=== PATIENT | female | born 1975 ===

== ENCOUNTER → 2021-03-05 11:35 | Outpatient (BNVA) | payer OTHER, SELFPAY | PROVIDERS: PCP Internal Medicine; Visit Provider Nurse Practitioner Family ==

== ENCOUNTER 2021-07-25 08:49 | Outpatient (REF) | payer OTHER, SELFPAY ==
[2021-07-25 09:09] LABS: MANUAL DIFF FLAG NO
[2021-07-25 10:03] LABS: Basophils Absolute Auto 0.1 X10*3/uL (0.0-0.2); Basophils Percent Auto 1.1 % (0-2); Eosinophils Absolute Auto 0.2 X10*3/uL (0.0-0.4); Eosinophils Percent Auto 2.9 % (0-4); Hematocrit 40.6 % (37.0-47.0); Hemoglobin 13.8 g/dl (12.0-16.0); Imm Gran Abs Auto 0.01 X10*3/uL (0.00-0.03); Imm Gran Pct Auto 0.2 % (0.0-0.4); Lymphocytes Absolute Auto 1.6 X10*3/uL (1.2-4.9); Lymphocytes Percent Auto 26.1 % (20-40); Mean Corpuscular Hemoglobin 30.8 pg (27.0-33.0); Mean Corpuscular Volume 90.6 fL (80.0-98.0); Mean Platelet Volume 10.8 fL (9.4-12.3); Monocytes Absolute Auto 0.5 X10*3/uL (0.1-1.2); Monocytes Percent Auto 8.1 % (2-11); Neutrophils Absolute Auto 3.9 x10*3/uL (2.0-8.3); Neutrophils Percent Auto 61.6 % (45-73); Platelet Count 306 X10*3/uL (160-400); Red Blood Count 4.48 X10*6/uL (4.20-5.50); Red Cell Distribution Width 13.2 % (11.0-16.0); White Blood Count 6.3 X10*3/uL (4.8-10.8)
[2021-07-25 10:49] LABS: Erythrocyte Sedimentation Rate 23 MM/HR (0-20)
[2021-07-25 10:53] LABS: Alanine Aminotransferase 35 U/L (0-31); Albumin Level 4.4 g/dL (3.5-5.0); Alkaline Phosphatase 69 U/L (39-117); Anion Gap 16 (12-20); Aspartate Amino Transferase 30 U/L (5-31); Bilirubin Total 0.5 mg/dL (0.0-1.0); Blood Urea Nitrogen 7 mg/dL (9-16); C Reactive Protein 0.57 mg/dL (< or = 0.50); Calcium 10.2 mg/dL (8.4-10.2); Carbon Dioxide 22 mmol/L (22-29); Chloride 107 mmol/L (96-108); Cholesterol 178 mg/dL; Estimated Glomerular Filt Rate > 60; Glucose Fasting 108 mg/dL (60-99); HDL Cholesterol 55 mg/dL; LDL Cholesterol Calculated 87 mg/dl; Potassium 4.2 mmol/L (3.3-5.1); Sodium 141 mmol/L (135-145); Total Protein 7.8 g/dL (6.5-8.0); Triglycerides 182 mg/dL
[2021-07-25 11:01] LABS: Thyroid Stimulating Hormone 0.93 uIU/mL (0.32-4.0); Vitamin D 25-OH Total 30.4 ng/mL (>30)
[2021-07-28 20:51] LABS: Anti Nuclear Antibody Screen NEGATIVE (NEGATIVE)
[2021-07-30 11:12] LABS: Cyclic Citrullinated Peptide <16 UNITS
[2021-07-30 20:27] LABS: Anti DNA DS Antibody <1 IU/mL
== END 2021-07-25 08:50 | disposition home or self-care (01) ==
LOC: HO.LAB 08:49
PROVIDERS: PCP Internal Medicine; Visit Provider Internal Medicine
DX: Z00.00 Encounter for general adult medical examination without abnormal findings (principal); M06.9 Rheumatoid arthritis, unspecified; E66.01 Morbid (severe) obesity due to excess calories; E55.9 Vitamin D deficiency, unspecified
CPT/HCPCS: 36415; 80053; 80061; 82306; 84443; 85025; 85652; 86038; 86039; 86140; 86200; 86225

== ENCOUNTER → 2021-08-12 11:58 | Outpatient (BNVA) | payer OTHER, SELFPAY | PROVIDERS: PCP Internal Medicine; Referring Provider Internal Medicine; Visit Provider Physician Assistant | DX: E66.01 Morbid (severe) obesity due to excess calories (principal); Z68.41 Body mass index [BMI] 40.0-44.9, adult; R11.10 Vomiting, unspecified; K21.9 Gastro-esophageal reflux disease without esophagitis; J45.909 Unspecified asthma, uncomplicated; M06.9 Rheumatoid arthritis, unspecified; Z98.84 Bariatric surgery status; Z11.0 Encounter for screening for intestinal infectious diseases | CPT/HCPCS: 99202; 99211 ==

== ENCOUNTER 2021-08-12 13:58 | Outpatient (REF) | payer OTHER, SELFPAY ==
[2021-08-16 11:06] LABS: H Pylori Breath Test Negative (Negative)
== END 2021-08-12 13:59 | disposition home or self-care (01) ==
LOC: HO.LNP 13:58
PROVIDERS: Visit Provider Physician Assistant
DX: E66.01 Morbid (severe) obesity due to excess calories (principal); K21.9 Gastro-esophageal reflux disease without esophagitis; Z98.84 Bariatric surgery status
CPT/HCPCS: 83013

== ENCOUNTER → 2021-08-20 10:00 | Outpatient (BNVA) | payer OTHER, SELFPAY | PROVIDERS: PCP Internal Medicine; Visit Provider Counselor Mental Health | DX: E66.9 Obesity, unspecified (principal); F43.20 Adjustment disorder, unspecified | CPT/HCPCS: 90791 ==

== ENCOUNTER → 2021-09-09 13:27 | Outpatient (BNVA) | payer OTHER, SELFPAY | PROVIDERS: PCP Internal Medicine; Visit Provider Physician Assistant | DX: E66.01 Morbid (severe) obesity due to excess calories (principal); Z98.84 Bariatric surgery status; Z68.41 Body mass index [BMI] 40.0-44.9, adult | CPT/HCPCS: 99212 ==

== ENCOUNTER 2021-09-10 08:06 | Outpatient (REF) | payer OTHER, SELFPAY ==
--- NOTE | ~2021-09-10 | CT_ITS ---
EXAMINATION: CT ABDOMEN AND PELVIS WITHOUT CONTRAST CLINICAL INFORMATION: Abdominal pain. COMPARISON: Upper GI high density study. TECHNIQUE: Multidetector volumetric imaging was performed from the superior aspect of the liver through the pubic symphysis. Sagittal and coronal reformatted images were obtained on the technologist's workstation. This CT examination was performed using dose optimization techniques as appropriate, variously including the following: *Automated exposure control *Adjustment of mA and/or kV according to patient size (this includes techniques or standardized protocols for targeted exams where dose is matched to indication/reason for exam; i.e. extremities or head) *Use of iterative reconstruction technique DLP: 740 mGy-cm FINDINGS: LUNG BASES: The visualized lung bases are unremarkable. LIVER, GALLBLADDER, AND BILIARY TREE: The liver is normal in size, shape, and attenuation. No focal hepatic lesion or biliary ductal dilatation is present. The gallbladder has been surgically removed. PANCREAS: Unremarkable. SPLEEN: Unremarkable. ADRENAL GLANDS: Unremarkable. KIDNEYS AND URETERS: The kidneys are normal in size, shape, and attenuation. No hydronephrosis, hydroureter, or calculi seen. No perinephric stranding. BLADDER: The bladder is nondistended. GASTROINTESTINAL TRACT: The gastric lap band is in correct position in the proximal fundus of the stomach. Previously it was almost in the mid body of the stomach on GI study 07/14/2017. Visualized stomach - oral contrast, opacified small bowel loops and the colon appears unremarkable. No free air or free fluid seen. ABDOMINAL WALL: No significant hernia is appreciated. LYMPH NODES: Normal. VASCULAR: Unremarkable. PELVIC VISCERA: The uterus is anteverted and appears unremarkable. There is no free fluid in the pelvis. Abnormal lymph nodes seen. OSSEOUS STRUCTURES: Degenerative disc changes with vacuum disc phenomena at L3-L4 and L4-L5 disc levels. CT/CT abdomen pelvis wo con IMPRESSION: Mild constipation. Gastric lap band is in correct position in the fundus of the stomach. Cholecystectomy changes. Fleischner guidelines were followed.
[2021-09-10] MEDS: Barium Sulfate Oral (Berry) 450 ML ORAL.SUSP 900 ML PO (10:45)
== END 2021-09-10 08:07 | disposition home or self-care (01) ==
LOC: HO.CT 08:06
PROVIDERS: PCP Internal Medicine; Visit Provider Internal Medicine
DX: R10.9 Unspecified abdominal pain (principal)
CPT/HCPCS: 74176

== ENCOUNTER 2021-09-11 08:59 | Outpatient (REF) | payer OTHER, SELFPAY ==
--- NOTE | ~2021-09-11 | MM_ITS ---
EXAMINATION: MM SCREENING DIGITAL BREAST TOMOSYNTHESIS, BILATERAL CLINICAL INFORMATION: Screening. Asymptomatic. The lifetime risk of breast cancer based on the Tyrer-Cuzick Model is 10%. COMPARISON: Mammography: 05/12/2016, 12/21/2014 TECHNIQUE: Digital breast tomosynthesis is performed in both the craniocaudal and mediolateral oblique views along with computer-aided detection (CAD). Synthesized 2D images are generated from the tomosynthesis. Additional left cleavage view and left MLO view are provided. FINDINGS: The breasts are almost entirely fatty (ACR BI-RADS breast composition Category a). Background stromal and some minor scattered fibroglandular densities are stable. No developing density or architectural abnormality. There are scattered isolated round calcifications and benign grouped incomplete rim calcification anterior 9:30 o'clock left breast. The axilla and skin contours are unremarkable. MM/MM tomosynthesis screening BI IMPRESSION: No mammographic evidence of malignancy. ASSESSMENT: BI-RADS 1: Negative RECOMMENDATION: Routine annual mammography screening. This patient's information was entered into a reminder system with a target due date for their next mammogram.
== END 2021-09-11 09:00 | disposition home or self-care (01) ==
LOC: HO.MAMMO 08:59
PROVIDERS: PCP Internal Medicine; Visit Provider Internal Medicine
DX: Z12.31 Encounter for screening mammogram for malignant neoplasm of breast (principal)
CPT/HCPCS: 77063; 77067

== ENCOUNTER → 2021-09-17 15:00 | Outpatient (BNVA) | payer OTHER, SELFPAY | PROVIDERS: PCP Internal Medicine; Visit Provider Counselor Mental Health | DX: F43.20 Adjustment disorder, unspecified (principal); E66.9 Obesity, unspecified | CPT/HCPCS: 90832 ==

== ENCOUNTER → 2021-09-18 08:11 | Outpatient (BNVA) | payer OTHER, SELFPAY | PROVIDERS: PCP Internal Medicine; Visit Provider Dietitian, Registered | DX: E66.9 Obesity, unspecified (principal) | CPT/HCPCS: 97802 ==

== ENCOUNTER 2021-09-26 10:30 | Outpatient (REF) | payer OTHER, SELFPAY ==
[2021-09-26 16:28] LABS: CT PCR NOT DETECTED (Not Detect.); NG PCR NOT DETECTED (Not Detect.)
[2021-10-01 01:31] LABS: HPV mRNA E6/E7 rflx Not Detected (Not Detected)
== END 2021-09-26 10:31 | disposition home or self-care (01) ==
LOC: HO.LAB 10:30
PROVIDERS: PCP Internal Medicine; Visit Provider Advanced Practice Midwife
DX: Z01.411 Encounter for gynecological examination (general) (routine) with abnormal findings (principal); Z11.51 Encounter for screening for human papillomavirus (HPV); N95.1 Menopausal and female climacteric states; Z20.2 Contact with and (suspected) exposure to infections with a predominantly sexual mode of transmission
CPT/HCPCS: 87491; 87591; 87624; 88142

== ENCOUNTER 2021-10-01 08:15 | Outpatient (REF) | payer OTHER, SELFPAY ==
--- NOTE | ~2021-10-01 | XR_ITS ---
EXAMINATION: XR CHEST CLINICAL INFORMATION: Morbid/severe obesity due to excess calories COMPARISON: None TECHNIQUE: 2 views of the chest were obtained. FINDINGS: No significant abnormality is noted involving the heart, lungs, mediastinum, bony thorax or soft tissues. XR/XR chest 2V IMPRESSION: Unremarkable chest examination.
--- NOTE | ~2021-10-01 | US_ITS ---
EXAMINATION: US COMPLETE ABDOMEN WITH LIVER ELASTOGRAPHY CLINICAL INFORMATION: Obesity COMPARISON: Previous abdominal ultrasound August 2013 TECHNIQUE: Real-time imaging of the abdominal viscera. Noninvasive ultrasound liver fibrosis assessment is performed using Seamus ElastPQ point quantification shear wave elastography (2D-SWE) with a C5-2 MHz transducer. Multiple elastography samples are obtained. FINDINGS: PANCREAS: The visualized pancreatic head and body are normal in appearance. The remainder of the pancreas is obscured from visualization by the overlying bowel gas. ABDOMINAL AORTA: The proximal, middle, and distal aortic segments are normal in caliber. INFERIOR VENA CAVA: Visualized portions are normal. LIVER: The liver demonstrates normal size and contour. Liver echotexture is increased. No focal lesion or intrahepatic biliary duct dilatation. The right lobe measures 14 cm in length. The left lobe measures 8 cm in length. Portal flow is normal/hepatopedal Shear wave liver elastography median stiffness is 1.8 m/s (reference: normal median stiffness is 1.3 m/s or less). IQR/median stiffness to assess sampling precision is 0.1 (reference: good quality data set is IQR/median stiffness of 0.15 or less). GALLBLADDER: Surgically removed COMMON BILE DUCT: Normal in caliber measuring 0.2 cm in diameter. RIGHT KIDNEY: Normal. No hydronephrosis. No renal calculi or focal parenchymal lesions. The kidney measures 10.7 cm in maximum dimension. LEFT KIDNEY: Normal. No hydronephrosis. No renal calculi or focal parenchymal lesions. The kidney measures 10 cm in maximum dimension. SPLEEN: Normal. The spleen measures 11 cm in maximum dimension. FREE FLUID: None. US/US abdomen comp w elastography IMPRESSION: 1. Impression: Echogenic liver suggestive of fatty infiltration. Limited visualization of the tail of the pancreas 2. Liver elastography: Adequate liver sampling. Slightly elevated liver stiffness suggestive of compensated advanced chronic liver disease but need further test for confirmation. REFERENCE: Society of Radiologists in Ultrasound Liver Stiffness Thresholds (2020): LIVER STIFFNESS THRESHOLDS: *Liver Stiffness equal or less than 1.3 m/s: High probability of being normal. *Liver Stiffness less than 1.7 m/s: In the absence of other known clinical signs, rules out compensated advanced chronic liver disease. *Liver Stiffness 1.7-2.1 m/s: Suggestive of compensated advanced chronic liver disease but need further test for confirmation. *Liver Stiffness over 2.1 m/s: Rules in compensated advanced chronic liver disease. *Liver Stiffness over 2.4 m/s: Suggestive of clinically significant portal hypertension. QUALITY OF DATA SET: *IQR/Median value equal or less than 0.15 implies a quality data set. *IQR/Median value over 0.15 implies a poor quality data set. SIGNIFICANT CHANGE FROM PRIOR EXAM: Significant change if liver stiffness measurement is 10% or greater from prior exam. OTHER CONSIDERATIONS: The stage of liver fibrosis may be overestimated in the setting of acute hepatitis, liver inflammation, elevated liver function tests, hepatic vascular congestion, obstructive cholestasis, non-fasting state, and infiltrative diseases such as amyloidosis and lymphoma. In some patients with NAFLD, the liver stiffness thresholds for compensated advanced chronic liver disease may be lower. In causes other than viral hepatitis and NAFLD, liver stiffness thresholds are not well established.
--- NOTE | ~2021-10-01 | FL_ITS ---
EXAMINATION: XR GI SERIES CLINICAL INFORMATION: Obesity. History of gastric lap band. COMPARISON: Previous exam July 2017 TECHNIQUE: Upper GI was performed using thin and thick barium and effervescent granules. FINDINGS: There is abnormal esophageal motility. No hernia or reflux is seen. There is a gastric lap band. PHI angle measures 35 degrees without evidence of slippage. Stomach and duodenum are otherwise normal. No fold thickening, mass, ulcer or stricture is seen. There is no hernia or reflux. FLUOROSCOPY TIME: 1 minute 7.7 tomas per centimeter squared. 28 saved fluoroscopic images.: FL/FL upper GI series IMPRESSION: Gastric lap band. Abnormal esophageal motility. Otherwise unremarkable exam.
--- NOTE | 2021-10-01 08:44 | ECG_ITS ---
Test Reason : E66.01 Blood Pressure : / mmHG Vent. Rate : 067 BPM Atrial Rate : 067 BPM P-R Int : 140 ms QRS Dur : 072 ms QT Int : 430 ms P-R-T Axes : 041 021 021 degrees QTc Int : 454 ms Sinus rhythm with occasional Premature ventricular complexes Nonspecific T wave abnormality Abnormal ECG No previous ECGs available Referred By: Elisabeth Trimble Electronically Signed By:Dieter Cook
[2021-10-01 10:33] LABS: Estimated Average Glucose 85 mg/dL; Hemoglobin A1c % 4.6 %
[2021-10-01 11:00] LABS: Insulin 29 uU/mL (2-29); Vitamin D 25-OH Total 24.4 ng/mL (>30)
[2021-10-01 11:35] LABS: Folate > 20.0 ng/mL (> or = 4.0); Vitamin B12 1282 pg/mL (200-900)
[2021-10-02 13:11] LABS: Calcium (PTHI) 9.6 mg/dL (8.6-10.2); PTHI 80 pg/mL (16-77)
[2021-10-04 06:17] LABS: Zinc 81 mcg/dL (60-130)
== END 2021-10-01 08:16 | disposition home or self-care (01) ==
LOC: HO.US 08:15
PROVIDERS: PCP Internal Medicine; Visit Provider Physician Assistant
DX: E66.01 Morbid (severe) obesity due to excess calories (principal); K21.9 Gastro-esophageal reflux disease without esophagitis; Z98.84 Bariatric surgery status
CPT/HCPCS: 36415; 71046; 74240; 76705; 76981; 82306; 82607; 82746; 83036; 83525; 83970; 84425; 84590; 84630; 93005

== ENCOUNTER → 2021-10-31 10:24 | Outpatient (BNVA) | payer OTHER, SELFPAY | PROVIDERS: PCP Internal Medicine; Visit Provider Physician Assistant | DX: E66.9 Obesity, unspecified (principal); Z68.41 Body mass index [BMI] 40.0-44.9, adult; Z98.84 Bariatric surgery status | CPT/HCPCS: 99212 ==

== ENCOUNTER → 2021-11-05 13:00 | Outpatient (BNVA) | payer OTHER, SELFPAY | PROVIDERS: Visit Provider Counselor Mental Health | DX: F43.20 Adjustment disorder, unspecified (principal); E66.9 Obesity, unspecified | CPT/HCPCS: 90832 ==

== ENCOUNTER → 2021-11-28 14:45 | Outpatient (BNVA) | payer OTHER, SELFPAY | PROVIDERS: PCP Internal Medicine; Visit Provider Physician Assistant | DX: E66.01 Morbid (severe) obesity due to excess calories (principal); Z98.84 Bariatric surgery status | CPT/HCPCS: Q3014 ==

== ENCOUNTER 2021-12-12 10:08 | Outpatient (REF) | payer OTHER, SELFPAY ==
[2021-12-12 11:57] LABS: Vitamin D 25-OH Total 27.3 ng/mL (>30)
[2021-12-14 18:16] LABS: Calcium, Random Urine 7.2 mg/dL
[2021-12-16 17:32] LABS: Calcium (PTHI) 9.7 mg/dL (8.6-10.2); PTHI 67 pg/mL (16-77)
[2021-12-19 00:51] LABS: Vitamin A 45 mcg/dL (38-98)
[2021-12-19 13:52] LABS: Vitamin B1 11 nmol/L (8-30)
== END 2021-12-12 10:09 | disposition home or self-care (01) ==
LOC: HO.LAB 10:08
PROVIDERS: Physician Assistant; PCP Internal Medicine; Visit Provider Internal Medicine
DX: E66.01 Morbid (severe) obesity due to excess calories (principal); K21.9 Gastro-esophageal reflux disease without esophagitis; E55.9 Vitamin D deficiency, unspecified; Z98.84 Bariatric surgery status
CPT/HCPCS: 36415; 82306; 82310; 82330; 83970; 84425; 84590

== ENCOUNTER → 2021-12-18 13:11 | Outpatient (BNVA) | payer OTHER, SELFPAY | PROVIDERS: PCP Internal Medicine; Referring Provider Internal Medicine; Visit Provider Physician Assistant | DX: E66.01 Morbid (severe) obesity due to excess calories (principal); Z68.41 Body mass index [BMI] 40.0-44.9, adult; K21.9 Gastro-esophageal reflux disease without esophagitis; E21.3 Hyperparathyroidism, unspecified; M06.9 Rheumatoid arthritis, unspecified; Z98.84 Bariatric surgery status | CPT/HCPCS: 99212 ==

== ENCOUNTER → 2022-01-09 13:35 | Outpatient (BNVA) | payer OTHER, SELFPAY | PROVIDERS: PCP Internal Medicine; Visit Provider Physician Assistant | DX: E66.9 Obesity, unspecified (principal); K21.9 Gastro-esophageal reflux disease without esophagitis; Z98.84 Bariatric surgery status; Z68.41 Body mass index [BMI] 40.0-44.9, adult | CPT/HCPCS: 99212 ==

== ENCOUNTER → 2022-01-31 09:26 | Outpatient (BNVA) | payer OTHER, SELFPAY | PROVIDERS: PCP Internal Medicine; Referring Provider Internal Medicine; Visit Provider Physician Assistant | DX: E66.9 Obesity, unspecified (principal); Z98.84 Bariatric surgery status; Z68.41 Body mass index [BMI] 40.0-44.9, adult; Z71.3 Dietary counseling and surveillance | CPT/HCPCS: 99212 ==

== ENCOUNTER → 2022-02-24 10:29 | Outpatient (BNVA) | payer OTHER, SELFPAY | PROVIDERS: PCP Internal Medicine; Referring Provider Internal Medicine; Visit Provider Physician Assistant | DX: E66.01 Morbid (severe) obesity due to excess calories (principal); K21.9 Gastro-esophageal reflux disease without esophagitis; Z98.84 Bariatric surgery status | CPT/HCPCS: 99212 ==

== ENCOUNTER → 2022-03-18 10:33 | Outpatient (BNVA) | payer OTHER, SELFPAY | PROVIDERS: PCP Internal Medicine; Visit Provider Physician Assistant | DX: E66.01 Morbid (severe) obesity due to excess calories (principal); Z98.84 Bariatric surgery status; Z68.41 Body mass index [BMI] 40.0-44.9, adult | CPT/HCPCS: 99212 ==

== ENCOUNTER 2022-04-10 11:37 | Outpatient (REF) | payer OTHER, SELFPAY ==
[2022-04-10 13:06] LABS: TSH reflex Free T4 0.48 uIU/mL (0.32-4.0); Vitamin D 25-OH Total 28.8 ng/mL (>30)
[2022-04-10 13:18] LABS: Folate 15.5 ng/mL (> or = 4.0); Vitamin B12 937 pg/mL (200-900)
[2022-04-13 15:39] LABS: Calcium (PTHI) 10.1 mg/dL (8.6-10.2); PTHI 38 pg/mL (16-77)
== END 2022-04-10 11:38 | disposition home or self-care (01) ==
LOC: HO.LAB 11:37
PROVIDERS: PCP Internal Medicine; Visit Provider Physician Assistant
DX: E66.9 Obesity, unspecified (principal); E21.3 Hyperparathyroidism, unspecified; E55.9 Vitamin D deficiency, unspecified; Z98.84 Bariatric surgery status
CPT/HCPCS: 36415; 82306; 82607; 82746; 83970; 84443; 99212

== ENCOUNTER → 2022-05-01 11:16 | Outpatient (BNVA) | payer OTHER, SELFPAY | PROVIDERS: PCP Internal Medicine; Visit Provider Physician Assistant | DX: E66.01 Morbid (severe) obesity due to excess calories (principal); R03.0 Elevated blood-pressure reading, without diagnosis of hypertension; Z98.84 Bariatric surgery status; Z68.41 Body mass index [BMI] 40.0-44.9, adult | CPT/HCPCS: 99212 ==

== ENCOUNTER → 2022-05-09 09:00 | Outpatient (BNVA) | payer OTHER, SELFPAY | PROVIDERS: PCP Internal Medicine; Visit Provider Physician Assistant | DX: Z13.89 Encounter for screening for other disorder (principal) | CPT/HCPCS: Q3014 ==

== ENCOUNTER 2022-05-15 09:45 | Outpatient (REF) | payer OTHER, SELFPAY ==
--- NOTE | 2022-05-15 09:59 | ECG_ITS ---
Test Reason : cp Blood Pressure : / mmHG Vent. Rate : 073 BPM Atrial Rate : 073 BPM P-R Int : 138 ms QRS Dur : 072 ms QT Int : 490 ms P-R-T Axes : 040 014 018 degrees QTc Int : 539 ms Normal sinus rhythm Low voltage QRS Cannot rule out Anterior infarct , age undetermined Abnormal ECG When compared with ECG of 01-OCT-2021 08:44, Premature ventricular complexes are no longer Present QT has lengthened Referred By: Emerald Steve Electronically Signed By:TURNER PRIETO
[2022-05-15 10:07] LABS: MANUAL DIFF FLAG NO
[2022-05-15 10:30] LABS: Basophils Absolute Auto 0.1 X10*3/uL (0.0-0.2); Eosinophils Absolute Auto 0.2 X10*3/uL (0.0-0.4); Eosinophils Percent Auto 2.8 % (0-4); Hematocrit 40.4 % (37.0-47.0); Hemoglobin 14.3 g/dl (12.0-16.0); Imm Gran Abs Auto 0.02 X10*3/uL (0.00-0.03); Imm Gran Pct Auto 0.3 % (0.0-0.4); Lymphocytes Absolute Auto 1.8 X10*3/uL (1.2-4.9); Lymphocytes Percent Auto 26.4 % (20-40); Mean Corpuscular HGB Conc 35.4 g/dl (31.0-35.0); Mean Corpuscular Hemoglobin 31.8 pg (27.0-33.0); Mean Platelet Volume 10.7 fL (9.4-12.3); Monocytes Absolute Auto 0.5 X10*3/uL (0.1-1.2); Neutrophils Absolute Auto 4.2 x10*3/uL (2.0-8.3); Neutrophils Percent Auto 62.5 % (45-73); Platelet Count 282 X10*3/uL (160-400); Red Blood Count 4.49 X10*6/uL (4.20-5.50); Red Cell Distribution Width 13.2 % (11.0-16.0); White Blood Count 6.7 X10*3/uL (4.8-10.8)
[2022-05-15 11:03] LABS: Alanine Aminotransferase 19 U/L (0-31); Albumin Level 4.3 g/dL (3.5-5.0); Alkaline Phosphatase 54 U/L (39-117); Anion Gap 15 (12-20); Aspartate Amino Transferase 19 U/L (5-31); Bilirubin Total 0.3 mg/dL (0.0-1.0); Blood Urea Nitrogen 18 mg/dL (9-16); Calcium 9.4 mg/dL (8.4-10.2); Carbon Dioxide 20 mmol/L (22-29); Chloride 108 mmol/L (96-108); Cholesterol 161 mg/dL; Estimated Glomerular Filt Rate > 60; Glucose Fasting 117 mg/dL (60-99); HDL Cholesterol 55 mg/dL; LDL Cholesterol Calculated 86 mg/dl; Potassium 4.3 mmol/L (3.3-5.1); Sodium 139 mmol/L (135-145); Total Protein 7.5 g/dL (6.5-8.0); Triglycerides 104 mg/dL
== END 2022-05-15 09:46 | disposition home or self-care (01) ==
LOC: HO.LAB 09:45
PROVIDERS: PCP Internal Medicine; Visit Provider Internal Medicine
DX: R07.9 Chest pain, unspecified (principal); E66.01 Morbid (severe) obesity due to excess calories
CPT/HCPCS: 36415; 80053; 80061; 85025; 93005

== ENCOUNTER → 2022-05-30 09:00 | Outpatient (BNVA) | payer OTHER, SELFPAY | PROVIDERS: PCP Internal Medicine; Visit Provider Physician Assistant | DX: E66.01 Morbid (severe) obesity due to excess calories (principal); Z98.84 Bariatric surgery status; Z68.41 Body mass index [BMI] 40.0-44.9, adult | CPT/HCPCS: Q3014 ==

== ENCOUNTER → 2022-06-19 09:34 | Outpatient (REF) | payer OTHER, SELFPAY ==
--- NOTE | ~2022-06-19 | NM_ITS ---
Myocardial perfusion study Indication: Abnormal EKG to evaluate for myocardial ischemia Technique: The patient was brought in for a Lexiscan perfusion study on 06/19/2022. Patient performed low-level exercise and was injected 0.4 mg of Lexiscan intravenously. Within a minute of injection, 35 mCi of sestamibi was given intravenously. Images were obtained using the SPECT gamma camera interlaced with the gating device. Images were obtained in supine position. Resting perfusion study was performed on 06/24/2022. Patient was administered 35 mCi of sestamibi intravenously at rest. Images were then obtained in supine position. Images obtained with and without CT attenuation. Total DLP 156 mGy-cm Images were processed with the software and compared side to side in short axis, horizontal long axis and vertical long axis views. Findings: The stress perfusion study showed non attenuated images show mildly to moderately reduced uptake in the distal lateral as well as mildly reduced uptake in the apex of the LV myocardium. Attenuation corrected images show mildly reduced septum of the LV myocardium. The gated study shows normal LV systolic function with calculated LVEF of 63%. LV cavity is normal size. The gated study shows normal systolic wall thickening and contraction of segments. Resting study shows no significant change in perfusion pattern compared to stress perfusion study. Gating at rest reveals normal systolic wall motion with ejection fraction at 70%. The findings are consistent with likely normal myocardial perfusion. NM/NM cardiolite stress test Impression: 1. Myocardial perfusion imaging study shows likely normal myocardial perfusion 2. Gated LVEF is 63% 3. Transient ischemic dilatation not present EKG is nondiagnostic for ischemia
--- NOTE | 2022-06-19 09:39 | CA_ITS ---
Acquisition Time: 2022-06-19 09:52:08 Total Exercise Time: 00:02:00 Test Indications: PREOP Medications: SEE H Protocol: LEXISCAN Max HR: 131 BPM 75% of Pred: 173 BPM Max BP: 120/088 mmHG Max Work Load: 1.0 METS Pharmacological stress test with Lexiscan injection, while sitting and kicking her legs, without anginal symptoms, with isolated PVC, with normotensive response to injection, with nondiagnostic EKG for ischemia. In recovery she was treated with Aminophylline 75mg IVP to reverse Lexiscan. Nuclear images pending. Test reviewed with Dr Antonio Referred By: Elisabeth Trimble Overread By: KATHARINE RAMOS
== END ==
LOC: HO.CARD 09:34
PROVIDERS: PCP Internal Medicine; Visit Provider Physician Assistant
DX: Z01.818 Encounter for other preprocedural examination (principal); R94.31 Abnormal electrocardiogram [ECG] [EKG]; E21.3 Hyperparathyroidism, unspecified; R03.0 Elevated blood-pressure reading, without diagnosis of hypertension; M06.9 Rheumatoid arthritis, unspecified; E66.01 Morbid (severe) obesity due to excess calories; R06.02 Shortness of breath
CPT/HCPCS: 78452; 93017; A9500; J2785

== ENCOUNTER → 2022-06-20 10:00 | Outpatient (BNVA) | payer OTHER, SELFPAY | PROVIDERS: PCP Internal Medicine; Visit Provider Physician Assistant | DX: E66.01 Morbid (severe) obesity due to excess calories (principal); R94.31 Abnormal electrocardiogram [ECG] [EKG]; Z68.39 Body mass index [BMI] 39.0-39.9, adult; Z98.84 Bariatric surgery status | CPT/HCPCS: Q3014 ==

== ENCOUNTER → 2022-06-23 11:10 | Outpatient (REF) | payer OTHER, SELFPAY ==
--- NOTE | 2022-06-23 11:15 | CA_ITS ---
Transthoracic Echocardiogram Patient (Last, First, Middle): Lesley Campbell, Gender: Female Date of : 1975 Age: 46 Procedure Date: 06/23/2022 Procedure Type: Transthoracic Echocardiogram Location: OP Height: 152.4 cm Weight: 92.99 kg BSA: 1.89 m2 Heart Rate: bpm BP: 125 / 82 mmHg Pouch Maker: KAILASH Referring MD: Elisabeth Trimble PA-C Symptoms: R94.31 - Abnormal electrocardiogram [ECG] [EKG] Study Quality: Adequate ECG Rhythm: Sinus Conclusions: - The left ventricular systolic function is normal. The calculated ejection fraction is 63% by biplane method. - There is mildly increased left ventricular wall thickness. - No obvious valvular pathology seen on this study. Findings Left Ventricle Normal left ventricular cavity size. There is mildly increased left ventricular wall thickness. The left ventricular systolic function is normal. The calculated ejection fraction is 63% by biplane method. There is no evidence of regional wall motion abnormalities. Diastolic function is normal for age. LV peak GLS -17.4%. Right Ventricle Normal right ventricular cavity size and systolic function. Atria Both atria are normal in size. Aortic Valve There is a normal trileaflet aortic valve. There is no aortic valve stenosis. There is no aortic valve regurgitation. Mitral Valve The mitral valve appears normal. There is no mitral valve regurgitation. There is no mitral valve stenosis. Pulmonic Valve The pulmonic valve is likely normal. Tricuspid Valve There is no tricuspid valve regurgitation. Tricuspid regurgitation envelope is inadequate for calculation of right ventricular systolic pressure. Great Vessels The asc aorta is normal in size. Venous The inferior vena cava is normal in size and collapses greater than 50% with inspiration. Pericardium/Pleural There is no evidence of pericardial effusion. Prior Study Comparison No significant change compared to prior study dated: 01/22/2018. Recommendations, Care & Conclusions No obvious valvular pathology seen on this study. Measurements 2D Linear Measurements IVSd: 1.12 0.6-0.9/0.6-1.0 cm LVIDd: 3.96 3.9-5.3/4.2-5.9 cm LVIDd Index: 2.10 2.4-3.2/2.2-3.1 cm/m2 LVIDs: 2.12 2.0-3.6 cm LVPWd: 1.11 0.7-1.1 cm LA Diam: 3.30 2.7-3.8/3.0-4.0 cm LAIDs Index: 1.75 1.5-2.3 cm/m2 LV Mass: 182.08 67-162/88-224 g LV Mass Index: 96.34 43-95/49-115 g/m2 LVOT Diam: 2.20 3.0+(-)1.3 cm 2D Systolic Function EF 4C: 62.20 >55% EF 2C: 65.30 >55% EF BiP: 62.90 >55% Mitral Valve MV Pk E: 0.56 MV PK A: 0.72 MV Decel Time: 280.00 E/A: 0.80 E'Lateral: 7.29 E'Medial: 5.77 E/E' Med: 9.70 E/E' Lat: 7.60 PHT: 82.00 MVA PHT: 2.68 Decel [place]: 1.99 Aortic Valve AoV Pk Peter: 1.16 AoV Mn Peter: 0.83 AoV VTI: 0.25 AoV Pk Grad: 5.00 Aov Mn Grad: 3.00 JOAQUIN Cont.VTI: 2.82 LVOT LVOT Pk Peter: 0.91 LVOT Mn Peter: 0.61 LVOT VTI: 0.18 LVOT Pk Grad: 3.00 LVOT Mn Grad: 2.00 LVOT Diam: 2.20 LVOT Area: 3.80 Diastolic Function MV Pk E: 0.56 MV Pk A: 0.72 E/A: 0.80 E'Medial: 5.77 E/E' Med: 9.70 E' Laterial: 7.29 E/E' Lat: 7.60 Right Ventricle TAPSE (mm): 17.40 TVS' Peter: 16.00 Tricuspid Valve RA Press: 3.00 Great Vessels Aorta Sinus of Valsalva: 3.61 2.0-3.[address] Ridge: 2.87 1.7-3.4 cm Ao Asc: 3.10 2.1-3.4 cm Updated in Other Vendor System with Status of Final Mina Yi MD electronically signed on 06/23/2022 4:24:39 PM with status of Final
== END ==
LOC: HO.CARD 11:10
PROVIDERS: PCP Internal Medicine; Visit Provider Physician Assistant
DX: Z01.818 Encounter for other preprocedural examination (principal); R06.02 Shortness of breath; R94.31 Abnormal electrocardiogram [ECG] [EKG]
CPT/HCPCS: 93306; 93356

== ENCOUNTER → 2022-07-11 10:00 | Outpatient (BNVA) | payer OTHER, SELFPAY | PROVIDERS: PCP Internal Medicine; Visit Provider Physician Assistant | DX: E66.01 Morbid (severe) obesity due to excess calories (principal); M06.9 Rheumatoid arthritis, unspecified; R94.31 Abnormal electrocardiogram [ECG] [EKG]; Z98.84 Bariatric surgery status; Z68.39 Body mass index [BMI] 39.0-39.9, adult | CPT/HCPCS: Q3014 ==

== ENCOUNTER → 2022-08-14 13:04 | Outpatient (BNVA) | payer OTHER, SELFPAY | PROVIDERS: PCP Internal Medicine; Referring Provider Internal Medicine; Visit Provider Internal Medicine | DX: Z01.810 Encounter for preprocedural cardiovascular examination (principal); I49.3 Ventricular premature depolarization | CPT/HCPCS: 99202 ==

== ENCOUNTER → 2022-09-11 11:24 | Outpatient (BNVA) | payer OTHER, SELFPAY | PROVIDERS: PCP Internal Medicine; Visit Provider Nurse Practitioner Family | DX: Z12.11 Encounter for screening for malignant neoplasm of colon (principal); K21.9 Gastro-esophageal reflux disease without esophagitis; R10.84 Generalized abdominal pain; K58.2 Mixed irritable bowel syndrome; K59.01 Slow transit constipation | CPT/HCPCS: 99202 ==

== ENCOUNTER 2022-09-11 14:50 | Outpatient (REF) | payer OTHER, SELFPAY ==
[2022-09-14 11:27] LABS: H Pylori Breath Test Negative (Negative)
== END 2022-09-11 14:51 | disposition home or self-care (01) ==
LOC: HO.LNP 14:50
PROVIDERS: Visit Provider Nurse Practitioner Family
DX: R10.9 Unspecified abdominal pain (principal)
CPT/HCPCS: 83013

== ENCOUNTER 2022-09-18 10:06 | Outpatient (REF) | payer OTHER, SELFPAY ==
--- NOTE | ~2022-09-18 | MM_ITS ---
EXAMINATION: MM SCREENING DIGITAL BREAST TOMOSYNTHESIS, BILATERAL CLINICAL INFORMATION: Screening. Asymptomatic. The lifetime risk of breast cancer based on the Tyrer-Cuzick Model is 10%. COMPARISON: Mammography: 09/11/2021, 05/12/2016 TECHNIQUE: Digital breast tomosynthesis is performed in both the craniocaudal and mediolateral oblique views along with computer-aided detection (CAD). Synthesized 2D images are generated from the tomosynthesis. Additional exaggerated left CC view is provided. FINDINGS: The breasts are almost entirely fatty (ACR BI-RADS breast composition Category a). Background stromal and fibroglandular tissue is similar to prior studies. No significant mass or developing density or architectural abnormality. No abnormal calcifications. The axilla and skin contours are unremarkable. MM/MM tomosynthesis screening BI IMPRESSION: No mammographic evidence of malignancy. ASSESSMENT: BI-RADS 1: Negative RECOMMENDATION: Routine annual mammography screening. This patient's information was entered into a reminder system with a target due date for their next mammogram.
== END 2022-09-18 10:07 | disposition home or self-care (01) ==
LOC: HO.MAMMO 10:06
PROVIDERS: PCP Internal Medicine; Visit Provider Internal Medicine
DX: Z12.31 Encounter for screening mammogram for malignant neoplasm of breast (principal)
CPT/HCPCS: 77063; 77067

== ENCOUNTER → 2022-10-24 13:39 | Outpatient (BNVA) | payer OTHER, SELFPAY | PROVIDERS: Visit Provider Nurse Practitioner Family | DX: Z12.11 Encounter for screening for malignant neoplasm of colon (principal); K59.00 Constipation, unspecified; R10.84 Generalized abdominal pain; K21.9 Gastro-esophageal reflux disease without esophagitis; Z90.49 Acquired absence of other specified parts of digestive tract; Z98.84 Bariatric surgery status | CPT/HCPCS: 99212 ==

== ENCOUNTER 2022-11-03 14:25 | Outpatient (REF) | payer OTHER, SELFPAY ==
[2022-11-04 04:49] LABS: CT PCR NOT DETECTED (Not Detect.); NG PCR NOT DETECTED (Not Detect.)
[2022-11-04 08:30] LABS: BV Int Neg Control Negative (Negative); BV Int Pos Control Positive (Positive)
== END 2022-11-03 14:26 | disposition home or self-care (01) ==
LOC: HO.LNP 14:25
PROVIDERS: PCP Internal Medicine; Visit Provider Advanced Practice Midwife
DX: Z01.419 Encounter for gynecological examination (general) (routine) without abnormal findings (principal); R03.0 Elevated blood-pressure reading, without diagnosis of hypertension; N95.1 Menopausal and female climacteric states; E66.01 Morbid (severe) obesity due to excess calories; M54.9 Dorsalgia, unspecified; Z79.899 Other long term (current) drug therapy; Z20.2 Contact with and (suspected) exposure to infections with a predominantly sexual mode of transmission
CPT/HCPCS: 0353U; 87480; 87510; 87660

== ENCOUNTER 2022-12-16 17:08 | Outpatient (AMB) | payer OTHER, SELFPAY ==
[2022-12-16 17:10] VITALS: BP 134/92; PULSE 103; O2SAT 97; BMI 39.5
--- NOTE | 2022-12-16 17:10 | A.OFFPC_ITS ---
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: No Accompanied by: Self / Same As Patient Allergies No Known Allergies Allergy (Verified 12/16/22 17:19) Medication List - Last Reconciled 12/16/22 by Emerald Steve MD albuterol sulfate 90 mcg/actuation (Ventolin HFA) 2 puffs inhalation Q6H PRN 30 days cholecalciferol (vitamin D3) 50 mcg PO DAILY Flovent HFA 110 mcg/actuation (fluticasone propionate) 2 puffs inhalation BID 30 days NS hydroxychloroquine 200 mg PO BID leflunomide 10 mg PO DAILY montelukast 10 mg PO DAILY omeprazole 40 mg PO DAILY polyethylene glycol 3350 (Miralax) 17 grams PO DAILY sennosides (Natural Senna Laxative) 17.2 mg (2 x 8.6 mg) PO BEDTIME Tobacco use date assessed: 12/16/22 Dental Screening Dental Screen Date: 12/16/22 Did you have a dental visit in the last 12 months?: No Did you have a dental problem in the last 6 months where you did not have access to dental care?: No Was dental information given to patient?: Patient has dentist HPI HPI Comments History of Present Illness Details This is 45-year-old female with impaired glucose tolerance, GERD, rheumatoid arthritis and moderate persistent asthma S that comes today for follow-up on her conditions. She has polydipsia but no polyuria. GERD stable with PPIs. Rheumatoid arthritis stable with hydroxychloroquine and this is follow rheumatology. On longstanding inhaler for her asthma and she requires rescue inhaler as needed. No chest pain or shortness of breath. [facility] Medical History (Updated 12/16/22 @ 17:23 by Emerald Steve MD) Abdominal pain Allergic rhinitis Asthma GERD (gastroesophageal reflux disease) Morbid obesity due to excess calories Obesity (BMI 30-39.9) Osteoarthritis of right ankle Physical exam Rheumatoid arthritis Surgical History H/O section History of total left hip arthroplasty Hx laparoscopic cholecystectomy (~09/2018) Hx of laparoscopic gastric banding Hx of tubal ligation Family History Father Diabetes mellitus Hypertension Maternal Aunt Breast cancer Mother CAD (coronary artery disease) Sister No problems noted. Brother No problems noted. Brother No problems noted. Brother No problems noted. Son No problems noted. Daughter Hypertension Asthma Daughter Obesity ADHD Social History Housing: House Alcohol intake: current Alcohol intake frequency: holidays/special occasions only Alcohol type: beer, wine and hard liquor Patient Tobacco Use Status: Never used Tobacco e-Cigarette/Vaping Use: Never Used Second Hand Smoke Exposure: Yes service: No Current occupational status: disabled Cognitive needs: No Hearing needs: No Vision needs: No Female Reproductive History Menstrual Age of Menarche: 11 Questionnaire PHQ-9 Over the last 2 weeks, how often have you been bothered by any of the following problems? 1. Little interest or pleasure in doing things: not at all 2. Feeling down, depressed, or hopeless: not at all 3. Trouble falling or staying asleep, or sleeping too much: not at all 4. Feeling tired or having little energy: not at all 5. Poor appetite or overeating: not at all 6. Feeling bad about yourself - or that you are a failure or have let yourself or your family down: not at all 7. Trouble concentrating on things, such as reading the newspaper or watching television: not at all 8. Moving or speaking so slowly that other people could have noticed. Or the opposite - being so fidgety or restless that you have been moving around a lot more than usual: not at all 9. Thoughts that you would be better off or of hurting yourself in some way: not at all Total score: 0 Depression Screening Interpretation: Negative 21390 - PHQ-9 Billing: Yes Source: Developed by Drs. Benito Rhodes, Angelita Vanegas, Tree Gandhi and colleagues, with an educational alexi from [employer]. Thrive Questionnaire Date Thrive assessed: 12/16/22 I am a: Patient What is your living situation today?: I have a steady place to live Within the past 12 months, did the food you bought not last and you didn't have the money to get more?: Never true Within the past 12 months, did you worry whether your food would run out before you got money to buy more?: Never true Do you have trouble paying for medicines?: No Do you have trouble getting transportation to medical appointments?: No Do you have trouble paying your heating and electricity bill?: No Do you have trouble taking care of your child, family member or friend?: No Do you have trouble with day-to-day activities such as bathing, preparing meals, shopping, managing finances, etc.?: No Are you currently unemployed and looking for a job?: No Are you interested in more education?: No Please select the resources that you would like help with: None Currently or been in a relationship where the following occur: no concerns reported AUDIT C Alcohol Use Questionnaire (AUDIT-C) 1. How often do you have a drink containing alcohol?: Monthly or less 2. How many drinks containing alcohol do you have on a typical day when you are drinking?: 1 or 2 3. How often do you have six or more drinks on one occasion?: Never Total Score: 1 Score Reviewed/Action Taken: No VIET-7 AMB Questionnaire VIET-7 Date VIET - 7 assessed: 12/16/22 Feeling nervous, anxious, or on edge: 0 = Not at all Not being able to stop or control worryin = Not at all Worrying too much about different things: 0 = Not at all Trouble relaxin = Not at all Being so restless that it is hard to sit still: 0 = Not at all Becoming easily annoyed or irritable: 0 = Not at all Feeling afraid as if something awful might happen: 0 = Not at all Total VIET-7 score (0-4 normal; 5-9 mild; 10-14 moderate; 15-21 severe): 0 Source: Developed by Drs. Benito Rhodes, Angelita Vanegas, Tree Gandhi and colleagues, with an educational alexi from [employer]. VIET-7 Assessment Billing VIET-7 Assessment Tool: VIET-7 Assessment 41898 Review of Systems Const All systems reviewed & are unremarkable except as noted in HPI and below Eyes Reports no additional complaints, Denies change in vision and Denies other visual disturbances Card Denies chest pain at rest, Denies chest pain with activity, Denies edema, Denies irregular heart rhythm, Denies claudication, Denies dyspnea, Denies dyspnea on exertion, Denies orthopnea, Denies paroxysmal nocturnal dyspnea and Denies slow heart rate Resp Denies cough, Denies dyspnea and Denies dyspnea on exertion GI Denies abdominal pain, Denies change in bowel habits, Denies excessive flatus, Denies nausea and Denies vomiting Denies urinary incontinence, Denies urinary hesitancy and Denies urinary urgency Musc Denies abnormal gait, Denies atrophy, Denies deformity, Reports arthralgias and Denies limited range of motion Skin/Breast Denies bleeding lesions, Denies changing lesions and Denies rash Neuro Denies abnormal gait and Denies lack of coordination Physical exam (Primary Care) Vital Signs: Last Vital Signs Pulse 103 H 12/16/22 17:10 BP 134/92 H 12/16/22 17:10 Pulse Ox 97 12/16/22 17:10 Oxygen Delivery Method Room Air 12/16/22 17:10 BMI result Body Mass Index 39.5 Tobacco/Smoking Status: Tobacco use Status Tobacco use date assessed 12/16/22 12/16/22 17:11 Patient Tobacco Use Status Never used Tobacco 12/16/22 17:11 e-Cigarette/Vaping Use Never Used 12/16/22 17:11 PHQ-9: PHQ-9 Score PHQ-9: Total score 0 12/16/22 17:22 Depression Screening Interpretation: Negative Thrive Assessment: Date of Thrive Assessment Date Thrive assessed 12/16/22 12/16/22 17:11 Currently or been in a relationship where the following occur: no concerns reported Eyes General: appearance normal, both eyes and all related structures Eyelids: Yes eyelids normal Conjunctivae: conjunctivae normal Neck Neck: Yes normal visual inspection and Yes supple Resp Effort & Inspection: normal respiratory effort Auscultation: clear to auscultation bilaterally Cardio Jugular venous distension: no JVD Rate: regular rate Rhythm: regular rhythm Heart sounds: S1 normal heart sound present and S2 normal heart sound present Extrem General: Yes full ROM Assessment and Plan Assessment & Plan (1) Moderate persistent asthma: Code(s): J45.40 - Moderate persistent asthma, uncomplicated Plan: Continue longstanding inhaler. Use rescue inhaler as needed (2) Impaired glucose tolerance: Code(s): R73.02 - Impaired glucose tolerance (oral) Plan: Repeat fasting blood glucose. (3) Rheumatoid arthritis: Code(s): M06.9 - Rheumatoid arthritis, unspecified Plan: Continue hydroxychloroquine. (4) GERD (gastroesophageal reflux disease): Code(s): K21.9 - Gastro-esophageal reflux disease without esophagitis Qualifiers: Esophagitis presence: esophagitis presence not specified Qualified Code(s): K21.9 - Gastro-esophageal reflux disease without esophagitis Plan: Continue PPIs as needed Orders: Orders Comprehensive [place]. Panel Fast Today R73.02 - Impaired glucose tolerance (oral) Vitamin D 25-OH Total Today E55.9 - Vitamin D deficiency, unspecified Complete Blood Count Auto Diff Today D64.9 - Anemia, unspecified Coding Level of Care Code Est Pt Level 4 (04598) Diagnoses Moderate persistent asthma J45.40 Impaired glucose tolerance R73.02 Rheumatoid arthritis M06.9 GERD (gastroesophageal reflux disease) K21.9 Esophagitis presence: esophagitis presence not specified Additional Codes VIET-7 Assessment Billing - VIET-7 Assessment Tool: VIET-7 Assessment 26305 ([id number]) Time Spent (min) 23
== END 2022-12-16 17:26 | disposition home or self-care (01) ==
PROVIDERS: Visit Provider Internal Medicine
DX: J45.40 Moderate persistent asthma, uncomplicated (principal); R73.02 Impaired glucose tolerance (oral); M06.9 Rheumatoid arthritis, unspecified; K21.9 Gastro-esophageal reflux disease without esophagitis
CPT/HCPCS: 99214

== ENCOUNTER 2023-05-15 09:25 | Day surgery (SDC) | payer OTHER, SELFPAY ==
--- NOTE | 2023-05-14 13:18 | HO.ANESPROP2 ---
Documented by User: Carolin Claros NP 05/14/23 13:19 HPI - Anesthesia Eval Consult details Narrative: 47yo F for Upper Endoscopy and Colonoscopy [facility] Active Problems Active Problems: All Active Problems (Updated 12/16/22 @ 17:23 by Emerald Steve MD) Impaired glucose tolerance (Acute) Cervical cancer screening (Acute) Back pain (Acute) PVC (premature ventricular contraction) (Acute) Preoperative cardiovascular examination (Acute) Screen for colon cancer (Acute) Abnormal EKG (Acute) Elevated blood pressure reading (Acute) Moderate persistent asthma (Acute) Hyperparathyroidism (Acute) Hypovitaminosis D (Acute) Perimenopausal (Acute) Encounter for annual routine gynecological examination (Acute) Adjustment disorder, unspecified (Acute) Emesis (Acute) Hx of laparoscopic gastric banding (Acute) Abdominal pain (Acute) Morbid obesity due to excess calories (Acute) Physical exam (Acute) Obesity (BMI 30-39.9) (Acute) Osteoarthritis of right ankle (Acute) Allergic rhinitis (Acute) GERD (gastroesophageal reflux disease) (Acute) Asthma (Acute) Asthma exacerbation (Acute) Rheumatoid arthritis (Acute) Past Medical History Medical History Abdominal pain Allergic rhinitis Asthma GERD (gastroesophageal reflux disease) Morbid obesity due to excess calories Obesity (BMI 30-39.9) Osteoarthritis of right ankle Physical exam Rheumatoid arthritis Family History Family History Father Diabetes mellitus Hypertension Maternal Aunt Breast cancer Mother CAD (coronary artery disease) Sister No problems noted. Brother No problems noted. Brother No problems noted. Brother No problems noted. Son No problems noted. Daughter Hypertension Asthma Daughter Obesity ADHD Surgical History Surgical History H/O section History of total left hip arthroplasty Hx laparoscopic cholecystectomy (~09/2018) Hx of laparoscopic gastric banding Hx of tubal ligation Social History Social History Housing: House Alcohol intake: current Alcohol intake frequency: holidays/special occasions only Alcohol type: beer, wine and hard liquor Patient Tobacco Use Status: Never used Tobacco e-Cigarette/Vaping Use: Never Used Second Hand Smoke Exposure: Yes Use of substances other than those prescribed or required for medical reasons: No Are you DNR?: No Advance Directives: No Advance Directives Information Provided: Yes service: No Current occupational status: disabled Cognitive needs: No Hearing needs: No Vision needs: No Meds Allergies Allergy/AdvReac Type Severity Reaction Status Date / Time No Known Allergies Allergy Verified 05/15/23 10:45 Home Medications Medication Instructions Recorded Confirmed Last Taken Type hydroxychloroquine 200 mg tablet 200 mg PO BID 10/31/21 12/16/22 Unknown History leflunomide 10 mg tablet 10 mg PO DAILY 10/31/21 12/16/22 Unknown History Assessment and Plan Assessment Anesthesia Assessment: Chart Reviewed Documented by User: Rylee Mullen MD 05/15/23 10:51 [facility] Past Medical History Medical History Abdominal pain Allergic rhinitis Asthma GERD (gastroesophageal reflux disease) Morbid obesity due to excess calories Obesity (BMI 30-39.9) Osteoarthritis of right ankle Physical exam Rheumatoid arthritis Family History Family History Father Diabetes mellitus Hypertension Maternal Aunt Breast cancer Mother CAD (coronary artery disease) Sister No problems noted. Brother No problems noted. Brother No problems noted. Brother No problems noted. Son No problems noted. Daughter Hypertension Asthma Daughter Obesity ADHD Family history of problems with anesthesia: No Surgical History Surgical History H/O section History of total left hip arthroplasty Hx laparoscopic cholecystectomy (~09/2018) Hx of laparoscopic gastric banding Hx of tubal ligation History of Problems with Anesthesia: No Social History Social History Housing: House Alcohol intake: current Alcohol intake frequency: holidays/special occasions only Alcohol type: beer, wine and hard liquor Patient Tobacco Use Status: Never used Tobacco e-Cigarette/Vaping Use: Never Used Second Hand Smoke Exposure: Yes Use of substances other than those prescribed or required for medical reasons: No Are you DNR?: No Advance Directives: No Advance Directives Information Provided: Yes service: No Current occupational status: disabled Cognitive needs: No Hearing needs: No Vision needs: No Meds Allergies Allergy/AdvReac Type Severity Reaction Status Date / Time No Known Allergies Allergy Verified 05/15/23 10:45 Home Medications Medication Instructions Recorded Confirmed Last Taken Type hydroxychloroquine 200 mg tablet 200 mg PO BID 10/31/21 12/16/22 Unknown History leflunomide 10 mg tablet 10 mg PO DAILY 10/31/21 12/16/22 Unknown History Exam Airway Mallampati Class: II TM Dist: >3cm Neck ROM: Full Heart: rrr Lungs: cta Assessment and Plan Assessment Anesthesia Assessment: Anesthesia Plan Discussed Final Anesthetic Review Family History of Problems with Anesthesia: No History of Problems with Anesthesia: No NPO: Yes ASA Class: III Final Preanesthetic Review: No Changes in Pt Med Stat, Meds/Allgs Chart Reviewed and Consent Obtained/Reviewed Patient Risk: Intermediate Procedure Risk: Intermediate Anesthetic Plan Anesthetic Plan: MAC: Disposition: Standard PACU
--- NOTE | 2023-05-15 10:13 | MHC.SHP ---
Pre-Procedural Eval Section A Date of Service: 05/15/23 The patient is an INPATIENT: No The History & Physical has been completed within 30 days and I have reviewed it.: No Section B Chief Complaint: screening, GERD, epigastric pain Relevant Family History (Specify if Yes): No Relevant Social History: None Present Medications: see Short Stay Collaborative assessment Medical History: Significant History (Abdominal pain Allergic rhinitis Asthma GERD (gastroesophageal reflux disease) Morbid obesity due to excess calories Obesity (BMI 30-39.9) Osteoarthritis of right ankle Physical exam Rheumatoid arthritis) History of Previous Operations: Relevant previous surgery/procedure and date(s) (H/O section History of total left hip arthroplasty Hx laparoscopic cholecystectomy (~09/2018) Hx of laparoscopic gastric banding Hx of tubal ligation) Allergies: Allergies Allergy/AdvReac Type Severity Reaction Status Date / Time No Known Allergies Allergy Verified 12/16/22 17:19 Review of Systems Sugical H&P ROS: Negative: Constitution, Cardiovascular, Respiratory and Gastrointestinal Exam Surgical H&P Exam: Normal: Heart, Normal: Lungs, Normal: Extremities and Normal: Abdomen Plan Diagnosis/Plan: Unchanged I have reviewed the history and physical and performed a pertinent physical examination on my patient. No changes have occurred unless specified. Time Spent With Patient Time: Total time managing care of this patient today ____ minutes.
[2023-05-15 10:32] VITALS: BMI 37.9
[2023-05-15 10:41] VITALS: BP 132/91; PULSE 87; RESP 16; TEMP 36.2; O2SAT 95
--- NOTE | 2023-05-15 10:53 | W.PM.OPN ---
Operative Note Operative Note Date of Service: 05/15/23 Narrative: FLEXIBLE TRANSORAL UPPER GASTROINTESTINAL ENDOSCOPY WITH BIOPSIES AND COLONOSCOPY TILL CECUM WITH SNARE POLYPECTOMY Pre-op diagnosis: Colon cancer screening (1st colonoscopy), GERD, postprandial epigastric pain and bloating, constipation Post-op diagnosis: Esophagitis, gastritis, gastric antral nodules, Colon polyp, diverticulosis, hemorrhoids Endoscopist:? Manolo Mosquera MD Anesthesia:?MAC UPPER ENDOSCOPY Consent: Indications for the procedure and potential complications of bleeding, perforation, reaction to medications and missed diagnosis were discussed with the patient and informed consent was obtained. Instrument: Olympus GIF H 190 mid size upper endoscope Monitoring: Vital signs and clinical assessment, continuous EKG monitoring, Pulse oximetry, Carbon Dioxide monitoring and blood pressure monitoring were done throughout the procedure. Procedure: The patient was placed in the left lateral decubitis position and pre-procedure medications were administered and a bite block was placed. The endoscope was inserted into the mouth and advanced under direct vision to the third part of duodenum. A careful inspection was made as the upper endoscope was withdrawn including a retroflexed examination of the proximal stomach; Findings and interventions are described below. Findings: Larynx: Normal Esophagus: GE junction at 34 cms, extrinsic constriction at 36 cms (likely due to Lap band). Focal esophagitis at GE junction and no Chris's. Stomach: A few 5 -6 mm benign appearing nodules in the antrum with central erosions - biopsied. Mild gastric erythema. Biopsies were obtained. Grade 2 flap valve on retroflexed examination of the cardia. Duodenum: Normal bulb and descending duodenum. Biopsies were obtained from 3rd part of duodenum to check for celiac sprue Intervention: Biopsies as noted above COLONOSCOPY PROCEDURE NOTE Consent: Indications for the procedure and potential complications of bleeding, perforation, reaction to medications and missed diagnosis were discussed with the patient and informed consent was obtained. Instrument: Olympus PCF H 190 L variable stiffness pediatric colonoscope Monitoring: Vital signs and clinical assessment, intermittent blood pressure monitoring, continuous EKG monitoring, Pulse oximetry and Carbon Dioxide monitoring were done throughout the procedure. Colon withdrawl time was 17 minutes. Procedure: The patient was placed in the left lateral decubitis position and pre-procedure medications were administered. After a digital rectal examination of the ano-rectum, the video colonoscope was inserted into the rectum and advanced through the colon to the cecum. The colonoscope was slowly withdrawn in a retrograde panoramic fashion and the colon mucosa was carefully examined including a retroflexed view of the rectum. Findings and interventions are described below. Procedure Difficulty: : Without difficulty Findings: Terminal Ileum: Not evaluated Cecum: Normal Ascending Colon: A 7-8 mm sessile polyp in the mid ascending colon - removed with a hot snare Transverse Colon: Normal Descending Colon: Normal Sigmoid Colon: Moderate diverticulosis Rectum: Normal Ano-rectum: Normal Colon preparation: Good after copious irrigation Impression and Post Procedure Diagnosis: Endoscopy Findings: ESOPHAGUS: GE junction at 34 cms, extrinsic constriction at 36 cms (likely due to Lap band). Focal esophagitis at GE junction and no Chris's. STOMACH: A few 5 -6 mm benign appearing nodules in the antrum with central erosions - biopsied. Mild gastric erythema. Biopsies were obtained. DUODENUM: Normal - biopsied to check for celiac sprue Colonoscopy Findings: One small polyp removed Moderate diverticulosis seen in the sigmoid colon Plan: Await pathology results Patient has an appointment on 05/27/23 in the [facility] with Marci Schwarz FNP-BC. Repeat Colonoscopy interval based on path results - in 5 years if polyps are adenomatous and 10 years if polyps are hyperplastic. Above findings were reviewed with the patient and GERD, colon polyps and diverticulosis handouts were given in the discharge area
[2023-05-15 11:53] VITALS: BP 107/80; PULSE 78; RESP 16; TEMP 36.1; O2SAT 96
[2023-05-15 12:08] VITALS: BP 133/88; PULSE 66; RESP 17; TEMP 36.1; O2SAT 95
== END 2023-05-15 12:27 | disposition home or self-care (01) ==
PROVIDERS: PCP Internal Medicine; Visit Provider Internal Medicine Gastroenterology
PROC: (CPT 45385; principal; 2023-05-15 11:10)
DX: Z12.11 Encounter for screening for malignant neoplasm of colon (principal); D12.2 Benign neoplasm of ascending colon; K57.30 Diverticulosis of large intestine without perforation or abscess without bleeding; K64.8 Other hemorrhoids; K58.9 Irritable bowel syndrome, unspecified; R10.84 Generalized abdominal pain; K21.9 Gastro-esophageal reflux disease without esophagitis; K20.80 Other esophagitis without bleeding; K31.7 Polyp of stomach and duodenum; K29.50 Unspecified chronic gastritis without bleeding; J45.909 Unspecified asthma, uncomplicated; E66.01 Morbid (severe) obesity due to excess calories; Z68.41 Body mass index [BMI] 40.0-44.9, adult; M06.9 Rheumatoid arthritis, unspecified; Z79.899 Other long term (current) drug therapy; Z98.84 Bariatric surgery status; Z90.49 Acquired absence of other specified parts of digestive tract
CPT/HCPCS: 45385; 43239; 88305; 88342; J2704

== ENCOUNTER → 2023-05-15 09:25 | Outpatient (BNV) | payer OTHER, SELFPAY | PROVIDERS: PCP Internal Medicine; Visit Provider Internal Medicine Gastroenterology | DX: Z12.11 Encounter for screening for malignant neoplasm of colon (principal); K57.30 Diverticulosis of large intestine without perforation or abscess without bleeding; K63.5 Polyp of colon; K31.7 Polyp of stomach and duodenum; K29.70 Gastritis, unspecified, without bleeding; K21.00 Gastro-esophageal reflux disease with esophagitis, without bleeding | CPT/HCPCS: 43239; 45385 ==

== ENCOUNTER 2023-05-27 12:20 | Outpatient (AMB) | payer OTHER, SELFPAY ==
[2023-05-27 12:27] VITALS: BP 135/74; PULSE 75; BMI 37.9
--- NOTE | 2023-05-27 12:27 | MHC.OFFVIS ---
Intake Vital Signs 05/27/23 12:27 Height 5 ft Weight 194 lb 0.108 oz BMI 37.9 BP 135/74 Blood Pressure Location Lt brachial Position Sitting Pulse 75 Intake Visit Reasons: s/p egd/colon Intake Note: Patient returns to in office follow up of EGD and colonoscopy. CC: Patient underwent EGD /colonoscopy with Dr. Mosquera on 05/15/23. She c/o abdominal pain, occasional diarrhea, and heartburn. Allergies No Known Allergies Allergy (Verified 05/27/23 12:31) HPI s/p egd/colon HPI Details LAST VISIT Screen for colon cancer Patient will be sent for colonoscopy. Denies any issues with anesthesia in the past. Just recently seen Cardiology for preop clearance for bariatric and was cleared. Occasional shortness of breath, however patient has moderate asthma and uses inhaler daily. Patient can take her rescue inhaler with her when going for procedure. Patient is not on any anticoagulation medication. Discussed with patient with expect before during and after the procedure. Risk associated with the procedure discussed with patient. Stressed importance of good bowel prep as well as clear liquid diet day before the procedure. Abdominal pain Patient reports occasional abdominal pain and discomfort postprandially. Discussed with patient avoiding dietary triggers. Patient's pain is not localized to any particular area. Also reports postprandial abdominal bloating. GERD (gastroesophageal reflux disease) Occasional epigastric discomfort postprandially. Patient had negative H pylori study. Discussed with patient avoiding dietary triggers and late night snacking. Staying upright for minimum 3 hours after meals discussed with patient. Continue omeprazole daily. Will send patient for upper endoscopy to rule out gastritis, esophagitis, duodenitis, Chris's, gastric or peptic ulcers, H pylori. I will see patient after the procedure, sooner on as needed basis. Patient is agreeable to this plan and verbalizes understanding of instructions. She was given the opportunity to ask questions all questions answered. ? UPPER ENDOSCOPY AND COLONOSCOPY Findings: Larynx: Normal Esophagus: GE junction at 34 cms, extrinsic constriction at 36 cms (likely due to Lap band). Focal esophagitis at GE junction and no Chris's. Stomach: A few 5 -6 mm benign appearing nodules in the antrum with central erosions - biopsied. Mild gastric erythema. Biopsies were obtained. Grade 2 flap valve on retroflexed examination of the cardia. Duodenum: Normal bulb and descending duodenum. Biopsies were obtained from 3rd part of duodenum to check for celiac sprue Intervention: Biopsies as noted above Findings: Terminal Ileum: Not evaluated Cecum: Normal Ascending Colon: A 7-8 mm sessile polyp in the mid ascending colon - removed with a hot snare Transverse Colon: Normal Descending Colon: Normal Sigmoid Colon: Moderate diverticulosis Rectum: Normal Ano-rectum: Normal Colon preparation: Good after copious irrigation Impression and Post Procedure Diagnosis: Endoscopy Findings: ESOPHAGUS: GE junction at 34 cms, extrinsic constriction at 36 cms (likely due to Lap band). Focal esophagitis at GE junction and no Chris's. STOMACH: A few 5 -6 mm benign appearing nodules in the antrum with central erosions - biopsied. Mild gastric erythema. Biopsies were obtained. DUODENUM: Normal - biopsied to check for celiac sprue Colonoscopy Findings: One small polyp removed Moderate diverticulosis seen in the sigmoid colon Plan: Repeat Colonoscopy interval based on path results - in 5 years if polyps are adenomatous and 10 years if polyps are hyperplastic. PATHOLOGY RESULTS: Diagnosis A. Small bowel, biopsy: Small intestinal mucosa within normal limits. B. Stomach, antrum, biopsy: Antral-type mucosa with mild chronic inactive inflammation; no Helicobacter organisms seen. C. Stomach, nodule, biopsy: Antral-type mucosa with mild chronic inactive inflammation, surface hyperplastic changes and intestinal metaplasia; negative for dysplasia; no Helicobacter organisms seen. D. Colon, ascending, polypectomy: Fragments of sessile serrated lesion/polyp; negative for cytologic dysplasia. TODAY'S VISIT: Patient is here today for follow-up and to discuss upper endoscopy and colonoscopy results. Patient denies any ill effects from the prep, anesthesia or procedure itself. Patient continues to have postprandial loose stools. Patient is taking omeprazole daily and continues to have frequent epigastric discomfort. Patient does admit that he is eating bigger portions than usual. Reports occasional nausea without vomiting. Patient reports frequent acid reflux at nighttime with burning like sensation when she lays down. Sometimes it wakes her up in the middle of the night. Patient denies eating late at night. Patient denies melena, hematochezia, unintentional weight loss or ribbon like stools. Patient is not taking MiraLax, reports that she is taking senna in the evening and she feels like she moves her bowels, however she continues to feel constipated. Upper endoscopy and colonoscopy results discussed with patient [facility] Medical History (Updated 05/27/23 @ 13:08 by Marci Schwarz [facility]) Sessile serrated polyp of colon Abdominal pain Morbid obesity due to excess calories Physical exam Obesity (BMI 30-39.9) Osteoarthritis of right ankle Allergic rhinitis GERD (gastroesophageal reflux disease) Asthma Rheumatoid arthritis Surgical History (Updated 05/27/23 @ 12:33 by Mary Colon [facility]) History of esophagogastroduodenoscopy (EGD) H/O colonoscopy Hx laparoscopic cholecystectomy (~09/2018) History of total left hip arthroplasty Hx of tubal ligation H/O section Hx of laparoscopic gastric banding Family History Father Diabetes mellitus Hypertension Maternal Aunt Breast cancer Mother CAD (coronary artery disease) Sister No problems noted. Brother No problems noted. Brother No problems noted. Brother No problems noted. Son No problems noted. Daughter Hypertension Asthma Daughter Obesity ADHD Social History Housing: House Alcohol intake: current Alcohol intake frequency: holidays/special occasions only Alcohol type: beer, wine and hard liquor Patient Tobacco Use Status: Never used Tobacco e-Cigarette/Vaping Use: Never Used Second Hand Smoke Exposure: Yes service: No Current occupational status: disabled Cognitive needs: No Hearing needs: No Vision needs: No Female Reproductive History Menstrual Age of Menarche: 11 Review of Systems Const Denies weight gain and Denies weight loss ENT Reports no additional complaints, Denies dysphagia and Denies odynophagia Card Reports no additional complaints Resp Reports no additional complaints GI Reports abdominal pain (epigastric), Denies belching, Denies melena, Reports bloating, Denies change in bowel habits, Denies dysphagia, Denies excessive flatus, Reports dyspepsia, Reports heartburn, Denies diarrhea, Reports loose stools, Reports nausea, Denies odynophagia and Denies vomiting Reports no additional complaints Musc Reports no additional complaints Neuro Reports no additional complaints Psych Reports no additional complaints Endo Reports no additional complaints Physical Exam Vital Signs: Last Vital Signs Pulse 75 05/27/23 12:27 BP 135/74 05/27/23 12:27 BMI result Body Mass Index 37.9 Const General: healthy appearing, no acute distress and well developed Nutritional Appearance: obese Orientation/consciousness: patient oriented x3 Resp Effort & Inspection: normal respiratory effort, able to speak in complete sentences, no tracheal deviation and symmetric chest movement Auscultation: clear to auscultation bilaterally Cardio Rate: regular rate GI Inspection: Yes normal to inspection, No distended and Yes obesity Palpation (GI): Soft to palpation, not firm, nontender and No hepatosplenomegaly present Auscultation: normal bowel sounds General: Yes no CVA tenderness Back/Spine/Pelvis Back: no CVA tenderness Skin General skin exam: elasticity normal, turgor normal and dry skin Neuro General: patient oriented x3 Psych Appearance: grossly normal Mental Status: mental status grossly normal Assessment & Plan Assessment & Plan (1) Abdominal pain: Code(s): R10.9 - Unspecified abdominal pain Qualifiers: Abdominal location: generalized Qualified Code(s): R10.84 - Generalized abdominal pain (2) GERD (gastroesophageal reflux disease): Code(s): K21.9 - Gastro-esophageal reflux disease without esophagitis Qualifiers: Esophagitis presence: esophagitis presence not specified Qualified Code(s): K21.9 - Gastro-esophageal reflux disease without esophagitis (3) Hx of laparoscopic gastric banding: Code(s): Z98.84 - Bariatric surgery status (4) Postprandial abdominal bloating: Code(s): R14.0 - Abdominal distension (gaseous) (5) Postprandial diarrhea: Code(s): K52.9 - Noninfective gastroenteritis and colitis, unspecified (6) Sessile serrated polyp of colon: Code(s): D12.6 - Benign neoplasm of colon, unspecified Plan Will change PPI to Nexium. Patient will also take sucralfate at bedtime. Discussed with patient avoiding dietary triggers and late night snacking. Staying upright for minimum 3 hours after meals discussed with patient. Sessile serrated polyp found patient will return for colorectal screening in 3 years, sooner if clinically necessary. Patient was encouraged to eat smaller meals and more often. Avoid fatty food. Portion control discussed with patient. She will return in 3 months, sooner on as needed basis. Patient is agreeable to this plan and verbalizes understanding of instructions. She was given the opportunity to ask questions and all questions answered. Thank you for allowing me to participate in her care Medications: New sucralfate 1 g PO BEDTIME 30 tabs 4RF R19.7 - Diarrhea, unspecified methylcellulose (laxative) (Citrucel) 500 mg PO DAILY 30 tabs 2RF K59.00 - Constipation, unspecified esomeprazole magnesium (Nexium) 40 mg PO DAILY 30 caps 5RF K21.9 - Gastro-esophageal reflux disease without esophagitis hydrocortisone 2.5% (Proctosol HC) [address] BID-QID PRN 30 grams 2RF hemorrhoids K64.9 - Unspecified hemorrhoids Refilled sennosides (Natural Senna Laxative) 17.2 mg (2 x 8.6 mg) PO BEDTIME 180 tabs 3RF constipation K59.00 - Constipation, unspecified Discontinued omeprazole Discontinued Reason: Doctor's Order 40 mg PO DAILY 90 caps 3RF K21.9 - Gastro-esophageal reflux disease without esophagitis Coding Level of Care Code Est Pt Level 4 (04542) Diagnoses Generalized abdominal pain R10.84 Abdominal location: generalized Gastroesophageal reflux disease, unspecified whether esophagitis present K21.9 Esophagitis presence: esophagitis presence not specified Hx of laparoscopic gastric banding Z98.84 Postprandial abdominal bloating R14.0 Postprandial diarrhea K52.9 Sessile serrated polyp of colon D12.6 Time Spent (min) 35 Comment 20 minutes spent with patient and additional 15 minutes spent reviewing her records
== END 2023-05-27 12:53 | disposition home or self-care (01) ==
PROVIDERS: PCP Internal Medicine; Visit Provider Nurse Practitioner Family
DX: R10.84 Generalized abdominal pain (principal); K21.9 Gastro-esophageal reflux disease without esophagitis; Z98.84 Bariatric surgery status; R14.0 Abdominal distension (gaseous); K52.9 Noninfective gastroenteritis and colitis, unspecified; D12.6 Benign neoplasm of colon, unspecified
CPT/HCPCS: 99214

== ENCOUNTER → 2023-05-27 12:20 | Outpatient (BNVA) | payer OTHER, SELFPAY | PROVIDERS: PCP Internal Medicine; Visit Provider Nurse Practitioner Family | DX: K57.30 Diverticulosis of large intestine without perforation or abscess without bleeding (principal); D12.2 Benign neoplasm of ascending colon; R10.84 Generalized abdominal pain; K21.9 Gastro-esophageal reflux disease without esophagitis; R14.0 Abdominal distension (gaseous); K52.9 Noninfective gastroenteritis and colitis, unspecified; Z79.899 Other long term (current) drug therapy; Z98.84 Bariatric surgery status; Z98.890 Other specified postprocedural states | CPT/HCPCS: 99212 ==

== ENCOUNTER 2023-07-28 12:50 | Outpatient (AMB) | payer OTHER, SELFPAY ==
[2023-07-28 12:55] VITALS: BP 132/80; BMI 37.9
--- NOTE | 2023-07-28 12:55 | A.OFFPC_ITS ---
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 Accompanied by: Self / Same As Patient Allergies No Known Allergies Allergy (Verified 07/28/23 13:00) Medication List - Last Reconciled 07/28/23 by Emerald Steve MD albuterol sulfate 90 mcg/actuation (Ventolin HFA) 2 puffs inhalation Q6H PRN 30 days budesonide-formoterol 80-4.5 mcg/actuation 2 puffs inhalation BID cholecalciferol (vitamin D3) 50 mcg PO DAILY esomeprazole magnesium (Nexium) 40 mg PO DAILY folic acid 10 mg PO DAILY hydrocortisone 2.5% (Proctosol HC) 1 appl UT BID-QID PRN hydroxychloroquine 200 mg PO BID leflunomide 10 mg PO DAILY meloxicam 15 mg PO DAILY methylcellulose (laxative) (Citrucel) 500 mg PO DAILY montelukast 10 mg PO DAILY sennosides (Natural Senna Laxative) 17.2 mg (2 x 8.6 mg) PO BEDTIME sucralfate 1 g PO BEDTIME Tobacco use date assessed: 07/28/23 Dental Screening Dental Screen Date: 07/28/23 Did you have a dental visit in the last 12 months?: No Did you have a dental problem in the last 6 months where you did not have access to dental care?: No Was dental information given to patient?: Patient has dentist HPI HPI Comments History of Present Illness0 Details This is a 48-year-old female with GERD, chronic idiopathic constipation rheumatoid arthritis comes today hospital discharge follow-up due to asthma ex acerbation and influenza A. She was admitted had [facility] 07/15/2023 and discharged 07/19/2023. She was having acute hypoxic respiratory failure requiring prolonged high flow nasal cannula. Receive IV steroids was positive for influenza A which had exacerbate her asthma. Received Tamiflu and a course of prednisone. They started her on Symbicort twice a day for her asthma and feels markedly improved. GERD stable with Carafate. Constipation stable with senna. On hydroxychloroquine for her rheumatoid arthritis and this is follow by Rheumatology. [facility] Medical History (Updated 07/29/23 @ 04:45 by Emerald Steve MD) Sessile serrated polyp of colon Abdominal pain Morbid obesity due to excess calories Physical exam Obesity (BMI 30-39.9) Osteoarthritis of right ankle Allergic rhinitis GERD (gastroesophageal reflux disease) Asthma Rheumatoid arthritis Surgical History History of esophagogastroduodenoscopy (EGD) H/O colonoscopy Hx laparoscopic cholecystectomy (~09/2018) History of total left hip arthroplasty Hx of tubal ligation H/O section Hx of laparoscopic gastric banding Family History Father Diabetes mellitus Hypertension Maternal Aunt Breast cancer Mother CAD (coronary artery disease) Sister No problems noted. Brother No problems noted. Brother No problems noted. Brother No problems noted. Son No problems noted. Daughter Hypertension Asthma Daughter Obesity ADHD Social History Housing: House Alcohol intake: current Alcohol intake frequency: holidays/special occasions only Alcohol type: beer, wine and hard liquor Patient Tobacco Use Status: Never used Tobacco e-Cigarette/Vaping Use: Never Used Second Hand Smoke Exposure: Yes service: No Current occupational status: disabled Cognitive needs: No Hearing needs: No Vision needs: Yes Female Reproductive History Menstrual Age of Menarche: 11 Questionnaire PHQ-9 Over the last 2 weeks, how often have you been bothered by any of the following problems? 1. Little interest or pleasure in doing things: not at all 2. Feeling down, depressed, or hopeless: several days 3. Trouble falling or staying asleep, or sleeping too much: several days 4. Feeling tired or having little energy: several days 5. Poor appetite or overeating: not at all 6. Feeling bad about yourself - or that you are a failure or have let yourself or your family down: not at all 7. Trouble concentrating on things, such as reading the newspaper or watching television: not at all 8. Moving or speaking so slowly that other people could have noticed. Or the opposite - being so fidgety or restless that you have been moving around a lot more than usual: not at all 9. Thoughts that you would be better off or of hurting yourself in some way: not at all Total score: 3 Depression Screening Interpretation: Negative Depression Screening Done: Yes 91666 - PHQ-9 Billing: Yes Source: Developed by Drs. Benito Rhodes, Angelita Vanegas, Tree Gandhi and colleagues, with an educational alexi from [employer]. Thrive Questionnaire Date Thrive assessed: 07/28/23 I am a: Patient What is your living situation today?: I have a steady place to live Within the past 12 months, did the food you bought not last and you didn't have the money to get more?: Never true Within the past 12 months, did you worry whether your food would run out before you got money to buy more?: Never true Do you have trouble paying for medicines?: No Do you have trouble getting transportation to medical appointments?: No Do you have trouble paying your heating and electricity bill?: No Do you have trouble taking care of your child, family member or friend?: No Do you have trouble with day-to-day activities such as bathing, preparing meals, shopping, managing finances, etc.?: No Are you currently unemployed and looking for a job?: No Are you interested in more education?: No Please select the resources that you would like help with: None Currently or been in a relationship where the following occur: no concerns reported THRIVE Score: 0 AUDIT C Alcohol Use Questionnaire (AUDIT-C) 1. How often do you have a drink containing alcohol?: Monthly or less 2. How many drinks containing alcohol do you have on a typical day when you are drinking?: 1 or 2 3. How often do you have six or more drinks on one occasion?: Never Total Score: 1 Score Reviewed/Action Taken: No VIET-7 AMB Questionnaire VIET-7 Date VIET - 7 assessed: 07/28/23 Feeling nervous, anxious, or on edge: 1 = Several days Not being able to stop or control worryin = Not at all Worrying too much about different things: 1 = Several days Trouble relaxin = Several days Being so restless that it is hard to sit still: 0 = Not at all Becoming easily annoyed or irritable: 1 = Several days Feeling afraid as if something awful might happen: 0 = Not at all Total VIET-7 score (0-4 normal; 5-9 mild; 10-14 moderate; 15-21 severe): 4 Source: Developed by Drs. Benito Rhodes, Angelita Vanegas, Tree Gandhi and colleagues, with an educational alexi from [employer]. VIET-7 Assessment Billing VIET-7 Assessment Tool: VIET-7 Assessment 91301 Review of Systems Const All systems reviewed & are unremarkable except as noted in HPI and below Eyes Reports no additional complaints, Denies change in vision and Denies other visual disturbances Card Denies chest pain at rest, Denies chest pain with activity, Denies edema, Denies irregular heart rhythm, Denies claudication, Denies dyspnea, Denies dyspnea on exertion, Denies orthopnea, Denies paroxysmal nocturnal dyspnea and Denies slow heart rate Resp Denies cough, Denies dyspnea and Denies dyspnea on exertion GI Denies abdominal pain, Denies change in bowel habits, Denies excessive flatus, Denies nausea and Denies vomiting Denies urinary incontinence, Denies urinary hesitancy and Denies urinary urgency Musc Denies abnormal gait, Denies atrophy, Denies deformity and Denies limited range of motion Skin/Breast Denies bleeding lesions, Denies changing lesions and Denies rash Neuro Denies abnormal gait, Denies behavioral changes and Denies lack of coordination Psych Denies behavioral changes Physical exam (Primary Care) Vital Signs: Last Vital Signs BP 132/80 07/28/23 12:55 BMI result Body Mass Index 37.9 Tobacco/Smoking Status: Tobacco use Status Tobacco use date assessed 07/28/23 07/28/23 13:07 Patient Tobacco Use Status Never used Tobacco 07/28/23 12:59 e-Cigarette/Vaping Use Never Used 07/28/23 12:59 PHQ-9: PHQ-9 Score PHQ-9: Total score 3 07/28/23 13:23 Depression Screening Interpretation: Negative Thrive Assessment: Date of Thrive Assessment Date Thrive assessed 07/28/23 07/28/23 13:07 Currently or been in a relationship where the following occur: no concerns reported Eyes General: appearance normal, both eyes and all related structures Eyelids: Yes eyelids normal Conjunctivae: conjunctivae normal Neck Neck: Yes normal visual inspection and Yes supple Resp Effort & Inspection: normal respiratory effort Auscultation: clear to auscultation bilaterally Cardio Jugular venous distension: no JVD Rate: regular rate Rhythm: regular rhythm Heart sounds: S1 normal heart sound present and S2 normal heart sound present Extrem General: Yes full ROM Assessment and Plan Assessment & Plan (1) Hospital discharge follow-up: Code(s): Z09 - Encounter for follow-up examination after completed treatment for conditions other than malignant neoplasm Plan: Discharge date 07/19/2023 due to asthma exacerbation and influenza A. Received Tamiflu on prednisone. Discharge with Symbicort. Feels improved/ (2) Asthma exacerbation: Code(s): J45.901 - Unspecified asthma with (acute) exacerbation Plan: Continue Symbicort. Use rescue inhaler as needed. Completed prednisone. (3) Rheumatoid arthritis: Code(s): M06.9 - Rheumatoid arthritis, unspecified Plan: Continue hydroxychloroquine. Follow-up with rheumatology. (4) GERD (gastroesophageal reflux disease): Code(s): K21.9 - Gastro-esophageal reflux disease without esophagitis Qualifiers: Esophagitis presence: esophagitis presence not specified Qualified Code(s): K21.9 - Gastro-esophageal reflux disease without esophagitis Plan: Continue Carafate. (5) Chronic idiopathic constipation: Code(s): K59.04 - Chronic idiopathic constipation Plan: Continue senna as needed. Coding Level of Care Code TCM Mod MDM <= 14 Days Diagnoses Hospital discharge follow-up Z09 Asthma exacerbation J45.901 Rheumatoid arthritis M06.9 Gastroesophageal reflux disease, unspecified whether esophagitis present K21.9 Esophagitis presence: esophagitis presence not specified Chronic idiopathic constipation K59.04 Additional Codes VIET-7 Assessment Billing - VIET-7 Assessment Tool: VIET-7 Assessment 40216 ([id number]) Time Spent (min) 26
== END 2023-07-28 13:25 | disposition home or self-care (01) ==
PROVIDERS: PCP Internal Medicine; Visit Provider Internal Medicine
DX: J45.901 Unspecified asthma with (acute) exacerbation (principal); M06.9 Rheumatoid arthritis, unspecified; K21.9 Gastro-esophageal reflux disease without esophagitis; K59.04 Chronic idiopathic constipation; Z09 Encounter for follow-up examination after completed treatment for conditions other than malignant neoplasm
CPT/HCPCS: 99213

== ENCOUNTER 2023-08-10 08:58 | Outpatient (AMB) | payer OTHER, SELFPAY ==
[2023-08-10 09:09] VITALS: BP 126/80; BMI 37.9
--- NOTE | 2023-08-10 09:09 | MHC.PC.OV ---
Vital Signs 08/10/23 09:09 Height 5 ft Weight 194 lb BMI 37.9 BP 126/80 Blood Pressure Location Lt brachial Position Sitting Intake Visit Reasons: Annual Exam Intake Note: Patient here for a physical exam Contact Center Agent Required: No Accompanied by: Daughter Allergies No Known Allergies Allergy (Verified 08/10/23 09:28) Medication List - Last Reconciled 08/10/23 by Emerald Steve MD albuterol sulfate 90 mcg/actuation (Ventolin HFA) 2 puffs inhalation Q6H PRN 30 days budesonide-formoterol 80-4.5 mcg/actuation 2 puffs inhalation BID cholecalciferol (vitamin D3) 50 mcg PO DAILY esomeprazole magnesium (Nexium) 40 mg PO DAILY folic acid 10 mg PO DAILY hydrocortisone 2.5% (Proctosol HC) 1 appl [place] BID-QID PRN hydroxychloroquine 200 mg PO BID leflunomide 10 mg PO DAILY meloxicam 15 mg PO DAILY methylcellulose (laxative) (Citrucel) 500 mg PO DAILY montelukast 10 mg PO DAILY sennosides (Natural Senna Laxative) 17.2 mg (2 x 8.6 mg) PO BEDTIME sucralfate 1 g PO BEDTIME Tobacco use date assessed: 07/28/23 Dental Screening Dental Screen Date: 08/10/23 Did you have a dental visit in the last 12 months?: No Did you have a dental problem in the last 6 months where you did not have access to dental care?: No Was dental information given to patient?: Patient has dentist HPI HPI Comments History of Present Illness Details This is a 48-year-old female with rheumatoid arthritis that comes for her physical exam. Rheumatoid arthritis is follow by Rheumatology. Mammogram is scheduled for September 2023. Pap smear done 2021 was normal. Colonoscopy done May 2023 was normal. No chest pain or shortness of breath. FORMERLY [facility] Medical History Sessile serrated polyp of colon Abdominal pain Morbid obesity due to excess calories Physical exam Obesity (BMI 30-39.9) Osteoarthritis of right ankle Allergic rhinitis GERD (gastroesophageal reflux disease) Asthma Rheumatoid arthritis Surgical History History of esophagogastroduodenoscopy (EGD) H/O colonoscopy Hx laparoscopic cholecystectomy (~09/2018) History of total left hip arthroplasty Hx of tubal ligation H/O section Hx of laparoscopic gastric banding Family History (Updated 08/10/23 @ 09:33 by Emerald Steve MD) Father Diabetes mellitus Hypertension Maternal Aunt Breast cancer Mother CAD (coronary artery disease) Diabetes mellitus Sister No problems noted. Brother No problems noted. Brother No problems noted. Brother No problems noted. Son No problems noted. Daughter Hypertension Asthma Daughter Obesity ADHD Social History Housing: House Alcohol intake: current Alcohol intake frequency: holidays/special occasions only Alcohol type: beer, wine and hard liquor Patient Tobacco Use Status: Never used Tobacco e-Cigarette/Vaping Use: Never Used Second Hand Smoke Exposure: Yes service: No Current occupational status: disabled Cognitive needs: No Hearing needs: No Vision needs: Yes Female Reproductive History Menstrual Age of Menarche: 11 Questionnaire Thrive Questionnaire Date Thrive assessed: 07/28/23 VIET-7 AMB Questionnaire VIET-7 Date VIET - 7 assessed: 07/28/23 Source: Developed by Drs. Benito Rhodes, Angelita Vanegas, Tree Gandhi and colleagues, with an educational alexi from [employer]. Review of Systems Const All systems reviewed & are unremarkable except as noted in HPI and below Eyes Reports no additional complaints, Denies change in vision and Denies other visual disturbances Card Denies chest pain at rest, Denies chest pain with activity, Denies edema, Denies irregular heart rhythm, Denies claudication, Denies dyspnea, Denies dyspnea on exertion, Denies orthopnea, Denies paroxysmal nocturnal dyspnea and Denies slow heart rate Resp Denies cough, Denies dyspnea and Denies dyspnea on exertion GI Denies abdominal pain, Denies change in bowel habits, Denies excessive flatus, Denies nausea and Denies vomiting Denies urinary incontinence, Denies urinary hesitancy and Denies urinary urgency Physical exam (Primary Care) Vital Signs: Last Vital Signs BP 126/80 08/10/23 09:09 BMI result Body Mass Index 37.9 Tobacco/Smoking Status: Tobacco use Status Tobacco use date assessed 07/28/23 08/10/23 09:16 Patient Tobacco Use Status Never used Tobacco 08/10/23 09:16 e-Cigarette/Vaping Use Never Used 08/10/23 09:16 Thrive Assessment: Date of Thrive Assessment Date Thrive assessed 07/28/23 08/10/23 09:16 Const Orientation/consciousness: patient oriented x3 HENMT Head: Yes normal to inspection, Yes normocephalic and Yes atraumatic Ears: external ears normal Eyes General: appearance normal, both eyes and all related structures Eyelids: Yes eyelids normal Conjunctivae: conjunctivae normal Neck Neck: Yes normal visual inspection and Yes supple Resp Effort & Inspection: normal respiratory effort Auscultation: clear to auscultation bilaterally Cardio Jugular venous distension: no JVD Rate: regular rate Rhythm: regular rhythm Heart sounds: S1 normal heart sound present and S2 normal heart sound present GI Inspection: Yes normal to inspection Palpation (GI): Soft to palpation and nontender Auscultation: normal bowel sounds Skin General skin exam: no rashes or lesions noted Neuro General: patient oriented x3 and no focal motor deficits Extrem General: Yes full ROM Psych Appearance: grossly normal Assessment and Plan Assessment & Plan (1) Physical exam: Code(s): Z00.00 - Encounter for general adult medical examination without abnormal findings Plan: Repeat in a year. (2) Rheumatoid arthritis: Code(s): M06.9 - Rheumatoid arthritis, unspecified Plan: Continue hydroxychloroquine. Follow-up with rheumatology. Orders: Orders Lipid Panel Today Z00.00 - Encounter for general adult medical examination without abnormal findings Vitamin D 25-OH Total Today E55.9 - Vitamin D deficiency, unspecified Comprehensive [place]. Panel Fast Today Z00.00 - Encounter for general adult medical examination without abnormal findings Medications: Refilled albuterol sulfate 90 mcg/actuation (Ventolin HFA) 2 puffs inhalation Q6H PRN 6.7 grams 1RF shortness of breath or wheezing 30 days Coding Level of Care Code Est Pt Prev Care 40-64y(09726) Diagnoses Physical exam Z00.00 Rheumatoid arthritis M06.9 Time Spent (min) 32
== END 2023-08-10 09:42 | disposition home or self-care (01) ==
PROVIDERS: Visit Provider Internal Medicine
DX: Z00.00 Encounter for general adult medical examination without abnormal findings (principal); M06.9 Rheumatoid arthritis, unspecified
CPT/HCPCS: 99396

== ENCOUNTER 2023-08-10 09:58 | Outpatient (REF) | payer OTHER, SELFPAY ==
[2023-08-10 10:17] LABS: MANUAL DIFF FLAG NO
[2023-08-10 10:31] LABS: Basophils Percent Auto 0.6 % (0-2); Eosinophils Absolute Auto 0.3 X10*3/uL (0.0-0.4); Eosinophils Percent Auto 4.5 % (0-4); Hemoglobin 13.5 g/dl (12.0-16.0); Imm Gran Abs Auto 0.01 X10*3/uL (0.00-0.03); Imm Gran Pct Auto 0.2 % (0.0-0.4); Lymphocytes Absolute Auto 1.7 X10*3/uL (1.2-4.9); Mean Corpuscular HGB Conc 34.6 g/dl (31.0-35.0); Mean Corpuscular Hemoglobin 31.4 pg (27.0-33.0); Mean Corpuscular Volume 90.7 fL (80.0-98.0); Mean Platelet Volume 9.8 fL (9.4-12.3); Monocytes Absolute Auto 0.5 X10*3/uL (0.1-1.2); Monocytes Percent Auto 7.6 % (2-11); Neutrophils Absolute Auto 3.7 x10*3/uL (2.0-8.3); Neutrophils Percent Auto 59.1 % (45-73); Platelet Count 231 X10*3/uL (160-400); Red Cell Distribution Width 12.9 % (11.0-16.0); White Blood Count 6.2 X10*3/uL (4.8-10.8)
[2023-08-10 11:04] LABS: Alanine Aminotransferase 24 U/L (0-31); Albumin Level 4.1 g/dL (3.5-5.0); Alkaline Phosphatase 55 U/L (39-117); Anion Gap 13 (12-20); Aspartate Amino Transferase 21 U/L (5-31); Bilirubin Total 0.5 mg/dL (0.0-1.0); Blood Urea Nitrogen 20 mg/dL (9-16); Calcium 9.6 mg/dL (8.4-10.2); Carbon Dioxide 22 mmol/L (22-29); Chloride 112 mmol/L (96-108); Cholesterol 184 mg/dL (<200); Estimated Glomerular Filt Rate > 60; Glucose Fasting 98 mg/dL (60-99); HDL Cholesterol 57 mg/dL (>40); LDL Cholesterol Calculated 93 mg/dL (<100); Potassium 3.9 mmol/L (3.3-5.1); Sodium 143 mmol/L (135-145); Total Protein 7.4 g/dL (6.5-8.0); Triglycerides 170 mg/dL (<150)
[2023-08-10 11:22] LABS: Vitamin D 25-OH Total 25.5 ng/mL (>30)
== END 2023-08-10 09:59 | disposition home or self-care (01) ==
LOC: HO.LAB 09:58
PROVIDERS: PCP Internal Medicine; Visit Provider Internal Medicine
DX: Z00.00 Encounter for general adult medical examination without abnormal findings (principal); Z13.6 Encounter for screening for cardiovascular disorders; D64.9 Anemia, unspecified; R73.02 Impaired glucose tolerance (oral); E55.9 Vitamin D deficiency, unspecified
CPT/HCPCS: 36415; 80053; 80061; 82306; 85025

== ENCOUNTER 2023-08-19 13:21 | Outpatient (AMB) | payer OTHER, SELFPAY ==
[2023-08-19 13:22] VITALS: BP 139/73; PULSE 104; BMI 38.1
--- NOTE | 2023-08-19 13:22 | A.OFFVIS_ITS ---
Vital Signs 08/19/23 13:22 Height 5 ft Weight 194 lb 14.218 oz BMI 38.1 BP 139/73 Blood Pressure Location Rt brachial Position Sitting Pulse 104 H Intake Visit Reasons: 3 month follow up Intake Note: Patient presents to in office visit today in 3 months follow up of abdominal pain. CC: Patient reports she is doing a little better and denies having any new GI concerns today. Cardiovascular Sonographer Required: No Accompanied by: Self / Same As Patient Allergies No Known Allergies Allergy (Verified 08/19/23 13:30) HPI HPI 3 month follow up: Details: LAST VISIT: Abdominal pain GERD (gastroesophageal reflux disease) Hx of laparoscopic gastric banding Postprandial abdominal bloating Postprandial diarrhea Sessile serrated polyp of colon Plan Will change PPI to Nexium. Patient will also take sucralfate at bedtime. Discussed with patient avoiding dietary triggers and late night snacking. Staying upright for minimum 3 hours after meals discussed with patient. Sessile serrated polyp found patient will return for colorectal screening in 3 years, sooner if clinically necessary. Patient was encouraged to eat smaller meals and more often. Avoid fatty food. Portion control discussed with patient. She will return in 3 months, sooner on as needed basis. Patient is agreeable to this plan and verbalizes understanding of instructions. She was given the opportunity to ask questions and all questions answered. ? Thank you for allowing me to participate in her care Medications New sucralfate 1 g PO BEDTIME 30 tabs 4RF R19.7 methylcellulose (laxative) (Citrucel) 500 mg PO DAILY 30 tabs 2RF K59.00 esomeprazole magnesium (Nexium) 40 mg PO DAILY 30 caps 5RF K21.9 hydrocortisone 2.5% (Proctosol HC) 1 appl [place] BID-QID PRN 30 grams 2RF hemorrhoids K64.9 Refilled sennosides (Natural Senna Laxative) 17.2 mg (2 x 8.6 mg) PO BEDTIME 180 tabs 3RF constipation K59.00 Discontinued omeprazole Discontinued Reason: Doctor's Order 40 mg PO DAILY 90 caps 3RF K21.9 TODAY'S VISIT: Patient is here today for follow-up. Patient reports that she has been doing better now that she is taking Nexium. States that sucralfate is helping her with her reflux, however she is little more constipated than usual. Patient denies melena, hematochezia, unintentional weight loss or ribbon like stools. Patient denies any dyspepsia, dysphagia or odynophagia. Patient reports that she is eating smaller meals and more often. Patient no longer experiences postprandial diarrhea. Denies any abdominal pain or discomfort at this time. Occasional postprandial abdominal bloating and occasional cramping in left lower quadrant. FORMERLY [facility] Medical History Sessile serrated polyp of colon Abdominal pain Morbid obesity due to excess calories Physical exam Obesity (BMI 30-39.9) Osteoarthritis of right ankle Allergic rhinitis GERD (gastroesophageal reflux disease) Asthma Rheumatoid arthritis Surgical History History of esophagogastroduodenoscopy (EGD) H/O colonoscopy Hx laparoscopic cholecystectomy (~09/2018) History of total left hip arthroplasty Hx of tubal ligation H/O section Hx of laparoscopic gastric banding Family History Father Diabetes mellitus Hypertension Maternal Aunt Breast cancer Mother CAD (coronary artery disease) Diabetes mellitus Sister No problems noted. Brother No problems noted. Brother No problems noted. Brother No problems noted. Son No problems noted. Daughter Hypertension Asthma Daughter Obesity ADHD Social History Housing: House Alcohol intake: current Alcohol intake frequency: holidays/special occasions only Alcohol type: beer, wine and hard liquor Patient Tobacco Use Status: Never used Tobacco e-Cigarette/Vaping Use: Never Used Second Hand Smoke Exposure: Yes service: No Current occupational status: disabled Cognitive needs: No Hearing needs: No Vision needs: Yes Female Reproductive History Menstrual Age of Menarche: 11 Review of Systems Const Denies weight gain and Denies weight loss ENT Reports no additional complaints, Denies dysphagia and Denies odynophagia Card Reports no additional complaints Resp Reports no additional complaints GI Denies abdominal pain, Denies belching, Denies melena, Denies bloating, Denies change in bowel habits, Denies dysphagia, Denies excessive flatus, Denies dyspep mike, Denies heartburn, Denies diarrhea, Denies loose stools, Denies nausea, Denies odynophagia and Denies vomiting Musc Reports no additional complaints Neuro Reports no additional complaints Psych Reports no additional complaints Endo Reports no additional complaints Physical Exam Vital Signs: Last Vital Signs Pulse 104 H 08/19/23 13:22 BP 139/73 08/19/23 13:22 BMI result Body Mass Index 38.1 Const General: healthy appearing, no acute distress and well developed Nutritional Appearance: obese Orientation/consciousness: patient oriented x3 Resp Effort & Inspection: normal respiratory effort, able to speak in complete sentences, no tracheal deviation and symmetric chest movement Auscultation: clear to auscultation bilaterally Cardio Rate: regular rate GI Inspection: Yes normal to inspection, No distended and Yes obesity Palpation (GI): Soft to palpation, not firm, nontender and No hepatosplenomegaly present Auscultation: normal bowel sounds General: Yes no CVA tenderness Back/Spine/Pelvis Back: no CVA tenderness Skin General skin exam: elasticity normal, turgor normal and dry skin Neuro General: patient oriented x3 Psych Appearance: grossly normal Mental Status: mental status grossly normal Assessment & Plan Assessment & Plan (1) Abdominal pain: Code(s): R10.9 - Unspecified abdominal pain Category: Medical Qualifiers: Abdominal location: generalized Qualified Code(s): R10.84 - Generalized abdominal pain (2) GERD (gastroesophageal reflux disease): Code(s): K21.9 - Gastro-esophageal reflux disease without esophagitis Category: Medical Qualifiers: Esophagitis presence: esophagitis presence not specified Qualified Code(s): K21.9 - Gastro-esophageal reflux disease without esophagitis (3) Hx of laparoscopic gastric banding: Code(s): Z98.84 - Bariatric surgery status Category: Surgical (4) Postprandial abdominal bloating: Code(s): R14.0 - Abdominal distension (gaseous) (5) Postprandial diarrhea: Code(s): K52.9 - Noninfective gastroenteritis and colitis, unspecified (6) Constipation: Code(s): K59.00 - Constipation, unspecified Qualifiers: Constipation type: chronic idiopathic constipation Qualified Code(s): K59.04 - Chronic idiopathic constipation Plan Patient will start taking MiraLax and will stop Citrucel. Patient was encouraged to increase fluid intake and activity to promote better bowel motility. Continue Nexium and sucralfate. Avoid dietary triggers and late night snacking. Staying upright for minimum 3 hours after meals discussed with patient. Patient will follow-up in 4 months, sooner on as needed basis. Patient is agreeable to this plan and verbalizes understanding of instructions. She was given the opportunity to ask questions and all questions answered. Thank you for allowing me to participate in her care Medications: New polyethylene glycol 3350 (Miralax) 17 grams PO DAILY 510 grams 2RF Refilled esomeprazole magnesium (Nexium) 40 mg PO DAILY 90 caps 2RF K21.9 - Gastro- esophageal reflux disease without esophagitis Discontinued methylcellulose (laxative) Discontinued Reason: Doctor's Order 500 mg PO DAILY 30 tabs 2RF K59.00 - Constipation, unspecified
== END 2023-08-19 14:13 | disposition home or self-care (01) ==
PROVIDERS: PCP Internal Medicine; Visit Provider Nurse Practitioner Family
DX: R10.84 Generalized abdominal pain (principal); K21.9 Gastro-esophageal reflux disease without esophagitis; Z98.84 Bariatric surgery status; R14.0 Abdominal distension (gaseous); K52.9 Noninfective gastroenteritis and colitis, unspecified; K59.04 Chronic idiopathic constipation
CPT/HCPCS: 99213

== ENCOUNTER → 2023-08-19 13:21 | Outpatient (BNVA) | payer OTHER, SELFPAY | PROVIDERS: PCP Internal Medicine; Visit Provider Nurse Practitioner Family | DX: K21.9 Gastro-esophageal reflux disease without esophagitis (principal); K59.00 Constipation, unspecified; K52.9 Noninfective gastroenteritis and colitis, unspecified; R10.84 Generalized abdominal pain; R14.0 Abdominal distension (gaseous); Z98.84 Bariatric surgery status | CPT/HCPCS: 99212 ==

== ENCOUNTER 2023-09-24 09:35 | Outpatient (REF) | payer OTHER, SELFPAY ==
--- NOTE | ~2023-09-24 | MM_ITS ---
EXAMINATION: MM SCREENING DIGITAL BREAST TOMOSYNTHESIS, BILATERAL CLINICAL INFORMATION: Screening. Asymptomatic. COMPARISON: Mammography: 09/18/2022, 09/11/2021, 05/12/2016, 12/11/2014. TECHNIQUE: Digital breast tomosynthesis is performed in both the craniocaudal and mediolateral oblique views along with computer-aided detection (CAD). Synthesized 2D images are generated from the tomosynthesis. Added bilateral MLO views were acquired. FINDINGS: The breasts are almost entirely fatty (ACR BI-RADS breast composition Category a). A few scattered benign type calcifications are present in both breasts. Stable mild parenchymal asymmetries left breast upper outer quadrant. There are no suspicious masses, suspicious grouped calcifications, or areas of architectural distortion in either breast. The parenchymal pattern is stable from prior exams. No skin or axillary abnormalities. MM/MM tomosynthesis screening BI IMPRESSION: No mammographic evidence of malignancy. No significant change. ASSESSMENT: BI-RADS BI-RADS 2 - Benign Findings RECOMMENDATION: Routine annual mammography screening. 1 year F/U This examination should not preclude the clinical evaluation of a suspicious palpable abnormality. This patient's information was entered into a reminder system with a target due date for their next mammogram.
== END 2023-09-24 09:36 | disposition home or self-care (01) ==
LOC: HO.MAMMO 09:35
PROVIDERS: PCP Internal Medicine; Visit Provider Internal Medicine
DX: Z12.31 Encounter for screening mammogram for malignant neoplasm of breast (principal)
CPT/HCPCS: 77063; 77067

== ENCOUNTER → 2023-09-24 09:45 | Outpatient (BNV) | payer OTHER, SELFPAY | PROVIDERS: PCP Internal Medicine; Visit Provider Radiology Diagnostic Radiology | DX: Z12.31 Encounter for screening mammogram for malignant neoplasm of breast (principal) | CPT/HCPCS: 77063; 77067 ==

== ENCOUNTER 2023-11-11 10:58 | Outpatient (REF) | payer OTHER, SELFPAY ==
[2023-11-12 05:55] LABS: CT PCR NOT DETECTED (Not Detect.); NG PCR NOT DETECTED (Not Detect.)
[2023-11-12 09:08] LABS: Bacterial Vaginosis PCR POSITIVE (Negative); Candida Group PCR NOT DETECTED (Not Detect); Candida glab krusei PCR NOT DETECTED (Not Detect); Trichomonas vaginalis PCR NOT DETECTED (Not Detect)
== END 2023-11-11 10:59 | disposition home or self-care (01) ==
LOC: HO.LAB 10:58
PROVIDERS: PCP Internal Medicine; Visit Provider Advanced Practice Midwife
DX: N89.8 Other specified noninflammatory disorders of vagina (principal); M54.9 Dorsalgia, unspecified; E66.9 Obesity, unspecified; Z20.2 Contact with and (suspected) exposure to infections with a predominantly sexual mode of transmission
CPT/HCPCS: 0352U; 87491; 87591

== ENCOUNTER 2023-11-11 10:58 | Outpatient (AMB) | payer OTHER, SELFPAY ==
[2023-11-11 11:02] VITALS: BP 128/76; BMI 37.5
--- NOTE | 2023-11-11 11:02 | MHC.OFFVIS ---
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 Composite Boat Builder Required: No Composite Boat Builder Services: Composite Boat Builder Present Information Interpreted: clinical only Refrigerating Machine Operator: Refrigerating Machine Operator Present Allergies No Known Allergies Allergy (Verified 11/11/23 11:02) Medication List - Last Reconciled 11/11/23 by Deidre Sanches CNM albuterol sulfate 90 mcg/actuation (Ventolin HFA) 2 puffs inhalation Q6H PRN 30 days budesonide-formoterol 80-4.5 mcg/actuation 2 puffs inhalation BID cholecalciferol (vitamin D3) 50 mcg PO DAILY esomeprazole magnesium (Nexium) 40 mg PO DAILY folic acid 10 mg PO DAILY hydrocortisone 2.5% (Proctosol HC) 1 appl [place] BID-QID PRN hydroxychloroquine 200 mg PO BID leflunomide 10 mg PO DAILY meloxicam 15 mg PO DAILY montelukast 10 mg PO DAILY polyethylene glycol 3350 (Miralax) 17 grams PO DAILY sennosides (Natural Senna Laxative) 17.2 mg (2 x 8.6 mg) PO BEDTIME sucralfate 1 g PO BEDTIME sumatriptan succinate 25 mg PO Q2-4H PRN 30 days Is last menstrual period known: No Post menopausal: Yes (05/2022) Do you need a note to return to daycare/school/sports/work: No HPI HPI 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 I asked her about her issues with her back pain and asked what helps she says she does do stretches but they do not help too much. She says she is up-to-date with her mammograms having gotten 1 in September and up-to-date with her primary care and all her fasting blood work and says everything was good. She does not work outside the home. She is sexually active with her she is interested in the vaginal tests but declines blood work. [facility] Medical History Sessile serrated polyp of colon Abdominal pain Morbid obesity due to excess calories Physical exam Obesity (BMI 30-39.9) Osteoarthritis of right ankle Allergic rhinitis GERD (gastroesophageal reflux disease) Asthma Rheumatoid arthritis Surgical History History of esophagogastroduodenoscopy (EGD) H/O colonoscopy Hx laparoscopic cholecystectomy (~09/2018) History of total left hip arthroplasty Hx of tubal ligation H/O section Hx of laparoscopic gastric banding Family History Father Diabetes mellitus Hypertension Maternal Aunt Breast cancer Mother CAD (coronary artery disease) Diabetes mellitus Sister No problems noted. Brother No problems noted. Brother No problems noted. Brother No problems noted. Son No problems noted. Daughter Hypertension Asthma Daughter Obesity ADHD Social History Housing: House Alcohol intake: current Alcohol intake frequency: holidays/special occasions only Alcohol type: beer, wine and hard liquor Patient Tobacco Use Status: Never used Tobacco e-Cigarette/Vaping Use: Never Used Second Hand Smoke Exposure: Yes service: No Current occupational status: disabled Cognitive needs: No Hearing needs: No Vision needs: Yes Female Reproductive History Menstrual Age of Menarche: 11 Duration of menses: <3 days control method: permanent sterilization Total pregnancies: 6 Full term: 3 Date of last pap smear: 09/27/21 (neg.2014 WNL) History of abnormal pap smear: Yes (1998) Date of Mammogram: 09/24/23 (negative) History of abnormal mammogram: No Physical Exam Vital Signs: Last Vital Signs BP 128/76 11/11/23 11:02 BMI result Body Mass Index 37.5 Const General: healthy appearing, comfortable, no acute distress, well developed and alert Nutritional Appearance: average body habitus and obese Orientation/consciousness: patient oriented x3 Limitations: no limitations HEENT Head: Yes normocephalic Neck Neck: Yes normal visual inspection Chest Other: Her breasts are pendulous no masses. Chest palpation & inspection: normal inspection of the chest Breast/axilla inspection: normal inspection of the breasts and normal inspection of the axillae Breast/axilla palpation: normal palpation of the breasts and normal palpation of the axillae Resp Effort & Inspection: normal respiratory effort GI Inspection: Yes normal to inspection, No Abdominal wall edema and No distended Palpation (GI): Soft to palpation and nontender Other: Normal external exam vagina pink smooth moist atrophic cervix small anterior difficult palpate but nontender unable to palpate uterus and adnexa well but nothing tender or enlarged good tone with Kegel. General: Yes bladder normal to palpation External Female Exam: normal external appearance and normal appearance of the urethra Speculum Exam - Vagina: normal appearance of the vagina, normal palpation and normal vaginal discharge Speculum Exam - Cervix: normal appearance of the cervix, normal palpation and nontender Bimanual exam- vagina & uterus: normal bimanual exam, normal palpation, uterine size normal, bladder normal to palpation, consistency normal, normal palpation, uterine mobility normal, uterine shape normal, No Cervical tenderness present, non-tender and no cervical motion tenderness Bimanual Exam- Adnexa, other: normal adnexae, no masses, normal and No adnexal tenderness Neuro General: patient oriented x3 Results Reviewed Results Reviewed: Name: Lesley Campbell Age/Sex: 46/F Attending: Carlene Whitehead CNM : 1975 Submitted by: Carlene Whitehead CNM Copies to: Emerald Perkins MD MR #: [id number] Status: DEP REF Collected: 09/26/21 Location: .LAB Received: 09/27/21 Interpretation Satisfactory for evaluation. No endocervical cells seen. Coccobacilli consistent with shift in vaginal zuleyma. Negative for intraepithelial lesion or malignancy. HPV mRNA E6/E7: NOT DETECTED This assay detects E6/E7 viral messenger RNA (mRNA) from 14 high-risk HPV types (16, 18, 31, 33, 35, 39, 45, 51, 52, 56, 58, 59, 66, 68) HPV testing performed by [facility], [place], [place]. See reference laboratory pion of the EMR for entire report. Clinical Information LMP: 09/12/21 Previous PAP test: 2015, WNL Material Received ThinPrep-Cervical Copies To Carlene Whitehead CNM [address] [place] [address] [address]. [address] [place] [address] Emerald Perkins MD [address] [place] [address] [address] [place] [address] Electronically Signed By: WALTER Moeller (ASCP) 10/11/21 1414 The Pap Test is a screening procedure with the inherent possibility of both false negative and false positive results. Results should be interpreted in the context of historic and current clinical findings. Reliability of the Pap Test is enhanced by performing the test on a regular repetitive basis. Patient: Lesley Campbell Age/Sex: 46/F MR#: [id number] Page 1 of 1 Assessment & Plan Assessment & Plan (1) Cervical cancer screening: Comment: Reports no history of abnormals in last 20 years, last Pap negative with negative HPV September of 2021. Code(s): Z12.4 - Encounter for screening for malignant neoplasm of cervix Category: Medical (2) Back pain: Code(s): M54.9 - Dorsalgia, unspecified Category: Medical (3) Encounter for annual routine gynecological examination: Code(s): Z01.419 - Encounter for gynecological examination (general) (routine) without abnormal findings Category: Medical (4) Obesity (BMI 30-39.9): Code(s): E66.9 - Obesity, unspecified Category: Medical Plan -----Discussed in this visit the following: healthy balanced diet, regular and consistent exercise, getting recommended health screens, doing the best she can for her particular health concerns, kegel exercises, pap smear screening and followup recommendations, mammography screening and SBE, normal changes in cycles in her life stage--- . Discussed normal experiences in menopause encouraged her to continue to do her stretches and do it she can to lose weight as that will help with her breasts being so large and back pain in general. Discussed normal Pap smear screening intervals especially in her case of no abnormals in over 20 years. Discussed normal findings in vaginal greens and that if Gardnerella or Amirah are resulted they do not necessarily need to be treated only if she has symptoms which today she does not. Coding Level of Care Code Est Pt Prev Care 40-64y(30598) Diagnoses Cervical cancer screening Z12.4 Back pain M54.9 Encounter for annual routine gynecological examination Z01.419 Obesity (BMI 30-39.9) E66.9
== END 2023-11-11 11:49 | disposition home or self-care (01) ==
LOC: HO.HWSM 10:58
PROVIDERS: PCP Internal Medicine; Visit Provider Advanced Practice Midwife
DX: Z01.419 Encounter for gynecological examination (general) (routine) without abnormal findings (principal); M54.9 Dorsalgia, unspecified; E66.9 Obesity, unspecified
CPT/HCPCS: 99396

== ENCOUNTER 2023-12-18 12:00 | Outpatient (AMB) | payer OTHER, SELFPAY ==
--- NOTE | 2023-12-18 12:03 | MHC.OFFVIS ---
Vital Signs 12/18/23 12:05 Height 5 ft Weight 188 lb 11.451 oz BMI 36.9 BP 126/86 Blood Pressure Location Rt brachial Position Sitting Pulse 76 Pulse Source Pulse Oximeter Pulse Oximetry (%) 97 Oxygen Delivery Method Room Air Intake Visit Reasons: 4 month follow up Intake Note: Lesley presents in office today for a scheduled 4 mos FUV. CC; Pt reports that their sx have remained stable but have not improved. Pt still reporting chronic NATALIA and LLQ pain. Pt denies any additional concerns at this time. Laserist Required: No Accompanied by: Daughter Allergies No Known Allergies Allergy (Verified 12/28/23 15:12) HPI HPI 4 month follow up: Details: LAST VISIT: Abdominal pain GERD (gastroesophageal reflux disease) Hx of laparoscopic gastric banding Postprandial abdominal bloating Postprandial diarrhea Constipation Plan Patient will start taking MiraLax and will stop Citrucel. Patient was encouraged to increase fluid intake and activity to promote better bowel motility. Continue Nexium and sucralfate. Avoid dietary triggers and late night snacking. Staying upright for minimum 3 hours after meals discussed with patient. Patient will follow-up in 4 months, sooner on as needed basis. Patient is agreeable to this plan and verbalizes understanding of instructions. She was given the opportunity to ask questions and all questions answered. ? Thank you for allowing me to participate in her care Medications New polyethylene glycol 3350 (Miralax) 17 grams PO DAILY 510 grams 2RF Refilled esomeprazole magnesium (Nexium) 40 mg PO DAILY 90 caps 2RF K21.9 Discontinued methylcellulose (laxative) Discontinued Reason: Doctor's Order 500 mg PO DAILY 30 tabs 2RF K59.0 TODAY'S VISIT Patient is here today for follow-up. Patient reports that since last time I have seen her she has been feeling the same. Continues to take Nexium in the morning and for the most part her symptoms are suppressed, however only occasionally patient will still have acid reflux. Patient takes sucralfate at bedtime Patient reports that she is moving her bowels better now that she is taking senna. Patient denies any melena, hematochezia, unintentional weight loss or ribbon like stools. Patient reports left upper and left lower quadrant pain. Patient feels like she is moving her bowels completely. Patient denies any dyspepsia, dysphagia or odynophagia. Patient reports increase shortness of breath and feels like her asthma is getting worse. Now that her reflux is more under control she is able to distinguish that is not reflux but more our last shortness of breath. Patient has to use inhaler more often. Has not followed up with pulmonology. History of asthma as a child, currently on corticosteroid. [facility] Medical History Sessile serrated polyp of colon Abdominal pain Morbid obesity due to excess calories Physical exam Obesity (BMI 30-39.9) Osteoarthritis of right ankle Allergic rhinitis GERD (gastroesophageal reflux disease) Asthma Rheumatoid arthritis Surgical History History of esophagogastroduodenoscopy (EGD) H/O colonoscopy Hx laparoscopic cholecystectomy (~09/2018) History of total left hip arthroplasty Hx of tubal ligation H/O section Hx of laparoscopic gastric banding Family History Father Diabetes mellitus Hypertension Maternal Aunt Breast cancer Mother CAD (coronary artery disease) Diabetes mellitus Sister No problems noted. Brother No problems noted. Brother No problems noted. Brother No problems noted. Son No problems noted. Daughter Hypertension Asthma Daughter Obesity ADHD Social History Housing: House Alcohol intake: current Alcohol intake frequency: holidays/special occasions only Alcohol type: beer, wine and hard liquor Patient Tobacco Use Status: Never used Tobacco e-Cigarette/Vaping Use: Never Used Second Hand Smoke Exposure: Yes service: No Current occupational status: disabled Cognitive needs: No Hearing needs: No Vision needs: Yes Female Reproductive History Menstrual Age of Menarche: 11 Review of Systems Const Denies weight gain and Denies weight loss ENT Reports no additional complaints, Denies dysphagia and Denies odynophagia Card Reports no additional complaints Resp Reports no additional complaints GI Reports abdominal pain (Epigastric), Denies belching, Denies melena, Reports bloating, Denies change in bowel habits, Denies dysphagia, Denies excessive flatus, Denies dyspepsia, Denies heartburn, Denies diarrhea, Denies loose stools, Denies nausea, Denies odynophagia and Denies vomiting Reports no additional complaints Musc Reports no additional complaints Neuro Reports no additional complaints Psych Reports no additional complaints Endo Reports no additional complaints Physical Exam Vital Signs: Last Vital Signs Pulse 76 12/18/23 12:05 BP 126/86 12/18/23 12:05 Pulse Ox 97 12/18/23 12:05 Oxygen Delivery Method Room Air 12/18/23 12:05 BMI result Body Mass Index 36.9 Const General: healthy appearing and no acute distress Nutritional Appearance: obese Orientation/consciousness: patient oriented x3 Resp Effort & Inspection: normal respiratory effort, able to speak in complete sentences, no tracheal deviation and symmetric chest movement Auscultation: wheezes Cardio Rate: regular rate GI Inspection: Yes normal to inspection, No distended and Yes obesity Palpation (GI): Soft to palpation, not firm, nontender and No hepatosplenomegaly present Auscultation: normal bowel sounds General: Yes no CVA tenderness Back/Spine/Pelvis Back: no CVA tenderness Skin General skin exam: elasticity normal, turgor normal and dry skin Neuro General: patient oriented x3 Psych Appearance: grossly normal Mental Status: mental status grossly normal Assessment & Plan Assessment & Plan (1) Moderate persistent asthma: Code(s): J45.40 - Moderate persistent asthma, uncomplicated Category: Medical Qualifiers: Asthma complication type: uncomplicated Qualified Code(s): J45.40 - Moderate persistent asthma, uncomplicated (2) Chronic idiopathic constipation: Code(s): K59.04 - Chronic idiopathic constipation Category: Medical (3) GERD (gastroesophageal reflux disease): Code(s): K21.9 - Gastro-esophageal reflux disease without esophagitis Category: Medical Qualifiers: Esophagitis presence: esophagitis presence not specified Qualified Code(s): K21.9 - Gastro-esophageal reflux disease without esophagitis (4) Abdominal pain: Code(s): R10.9 - Unspecified abdominal pain Category: Medical Qualifiers: Abdominal location: generalized Qualified Code(s): R10.84 - Generalized abdominal pain (5) Hx of laparoscopic gastric banding: Code(s): Z98.84 - Bariatric surgery status Category: Surgical (6) Postprandial abdominal bloating: Code(s): R14.0 - Abdominal distension (gaseous) Plan Patient will continue PPI and sucralfate. Continue taking senna and fiber supplement. Ultrasound ordered. Most likely patient's pain is related to gas trapping. Discussed with patient low FODMAP diet. List of food recommended as well as list of food to avoid given to patient. Patient will follow-up in 4 months, sooner on as needed basis. Referral to pulmonology for PFT Orders: Orders US abdomen complete 12/25/23 R10.9 - Unspecified abdominal pain Referrals Pulmonology Referral J45.40 - Moderate persistent asthma, uncomplicated Coding Level of Care Code Est Pt Level 3 (54409) Diagnoses Moderate persistent asthma without complication J45.40 Asthma complication type: uncomplicated Chronic idiopathic constipation K59.04 Gastroesophageal reflux disease, unspecified whether esophagitis present K21.9 Esophagitis presence: esophagitis presence not specified Generalized abdominal pain R10.84 Abdominal location: generalized Hx of laparoscopic gastric banding Z98.84 Postprandial abdominal bloating R14.0 Time Spent (min) 30 Comment 20 minutes spent with patient and additional 10 minutes spent reviewing her records
[2023-12-18 12:05] VITALS: BP 126/86; PULSE 76; O2SAT 97; BMI 36.9
== END 2023-12-18 12:32 | disposition home or self-care (01) ==
PROVIDERS: PCP Internal Medicine; Visit Provider Nurse Practitioner Family
DX: J45.40 Moderate persistent asthma, uncomplicated (principal); K59.04 Chronic idiopathic constipation; K21.9 Gastro-esophageal reflux disease without esophagitis; R10.84 Generalized abdominal pain; Z98.84 Bariatric surgery status; R14.0 Abdominal distension (gaseous)
CPT/HCPCS: 99213

== ENCOUNTER → 2023-12-18 12:00 | Outpatient (BNVA) | payer OTHER, SELFPAY | PROVIDERS: PCP Internal Medicine; Visit Provider Nurse Practitioner Family | DX: K59.04 Chronic idiopathic constipation (principal); K21.9 Gastro-esophageal reflux disease without esophagitis; R10.32 Left lower quadrant pain; R10.12 Left upper quadrant pain; R14.0 Abdominal distension (gaseous); R10.84 Generalized abdominal pain; Z98.84 Bariatric surgery status | CPT/HCPCS: 99212 ==

== ENCOUNTER 2023-12-25 09:26 | Outpatient (REF) | payer OTHER, SELFPAY ==
--- NOTE | ~2023-12-25 | US_ITS ---
EXAMINATION: US ABDOMEN COMPLETE CLINICAL INFORMATION: Unspecified abdominal pain. COMPARISON: Ultrasound abdomen complete 10/01/2021. CT abdomen and pelvis 09/10/2021. TECHNIQUE: Real-time imaging of the abdominal viscera. Limited visualization due to bowel gas. FINDINGS: PANCREAS: Limited visualization of pancreatic tail and head. Imaged portion of pancreatic body is unremarkable. ABDOMINAL AORTA: Limited visualization of the abdominal aorta. Imaged portions of the abdominal aorta are within normal limits in caliber. INFERIOR VENA CAVA: Visualized portions are normal. LIVER: Increased hepatic parenchymal heterogeneity and echogenicity could be associated with hepatocellular disease/hepatic steatosis and substantially limits visualization. Correlation with liver function tests and clinical exam recommended to determine further management. A right hepatic 0.8 x 0.5 x 0.8 cm echogenic lesion was not appreciated on ultrasound of 10/01/[address] scan of 09/10/2021. Differential considerations include hemangioma versus other mass lesion. MRI recommended for further evaluation. GALLBLADDER: Surgically absent. COMMON BILE DUCT: Normal in caliber measuring 0.4 cm in diameter. RIGHT KIDNEY: No hydronephrosis. No renal calculi. Limited visualization. The kidney measures 10.4 cm in maximum dimension. LEFT KIDNEY: No hydronephrosis. No renal calculi. Limited visualization. The kidney measures 10.7 cm in maximum dimension. SPLEEN: Normal. The spleen measures 10.6 cm in maximum dimension. FREE FLUID: None. US/US abdomen complete IMPRESSION: Increased hepatic parenchymal heterogeneity and echogenicity could be associated with hepatocellular disease/hepatic steatosis and substantially limits visualization. Correlation with liver function tests and clinical exam recommended to determine further management. A right hepatic 0.8 x 0.5 x 0.8 cm echogenic lesion was not appreciated on ultrasound of 10/01/[address] scan of 09/10/2021. Differential considerations include hemangioma versus other mass lesion. MRI recommended for further evaluation. Electronically signed by: Shereen Macdonald MD 01/25/2024 11:20 AM EDT
== END 2023-12-25 09:27 | disposition home or self-care (01) ==
LOC: HO.US 09:26
PROVIDERS: PCP Internal Medicine; Visit Provider Nurse Practitioner Family
DX: R10.9 Unspecified abdominal pain (principal)
CPT/HCPCS: 76700

== ENCOUNTER 2023-12-28 15:03 | Outpatient (AMB) | payer OTHER, SELFPAY ==
--- NOTE | 2023-12-28 15:08 | MHC.OFFVIS ---
Vital Signs 12/28/23 15:09 Height 5 ft Weight 187 lb 6.287 oz BMI 36.6 BP 136/94 H Blood Pressure Location Rt brachial Position Sitting Pulse 101 H Pulse Source Pulse Oximeter Pulse Oximetry (%) 94 Oxygen Delivery Method Room Air Intake Visit Reasons: Asthma Allergies No Known Allergies Allergy (Verified 12/28/23 15:12) HPI HPI Asthma: Details: Lesley is a pleasant 48 year old female, never smoker, with underlying asthma, GERD and RA on plaquenil. She was referred by GI for pulmonary evaluation. She reports worsening control of asthma over the last few months. She was diagnosed with asthma as an adult, never requiring intubation. She was admitted in July for acute respiratory failure secondary to influenza A requiring prolonged high flow. She was discharged on symbicort 80 mcg with good control of symptoms, however only had a month prescription. She has been using albuterol MDI frequently. She has a nebulizer at home, but no medication to use. She continues to report dry cough, wheezing, chest tightness and dyspnea on exertion. She reports possible seasonal allergies, no recent allergy testing. She has multiple pets at home including cats, dogs, andrew, alejo and parakeet. She reports daughter with asthma. Denies any occupational exposures. [facility] Medical History Sessile serrated polyp of colon Abdominal pain Morbid obesity due to excess calories Physical exam Obesity (BMI 30-39.9) Osteoarthritis of right ankle Allergic rhinitis GERD (gastroesophageal reflux disease) Asthma Rheumatoid arthritis Surgical History History of esophagogastroduodenoscopy (EGD) H/O colonoscopy Hx laparoscopic cholecystectomy (~09/2018) History of total left hip arthroplasty Hx of tubal ligation H/O section Hx of laparoscopic gastric banding Family History Father Diabetes mellitus Hypertension Maternal Aunt Breast cancer Mother CAD (coronary artery disease) Diabetes mellitus Sister No problems noted. Brother No problems noted. Brother No problems noted. Brother No problems noted. Son No problems noted. Daughter Hypertension Asthma Daughter Obesity ADHD Social History Housing: House Alcohol intake: current Alcohol intake frequency: holidays/special occasions only Alcohol type: beer, wine and hard liquor Patient Tobacco Use Status: Never used Tobacco e-Cigarette/Vaping Use: Never Used Second Hand Smoke Exposure: Yes service: No Current occupational status: disabled Cognitive needs: No Hearing needs: No Vision needs: Yes Female Reproductive History Menstrual Age of Menarche: 11 Review of Systems Const Denies chills, Denies excessive sweating, Denies fever(s), Denies headache(s) and Denies night sweats Eyes Denies dry eyes, Denies irritation and Denies itchy eyes ENT Reports Normal hearing present, Denies headache(s), Denies nasal congestion, Denies nasal discharge, Denies post nasal drip and Denies sore throat Card Denies chest pain, Denies chest pain at rest, Denies chest pain with activity, Denies claudication, Denies leg edema, Denies orthopnea and Denies paroxysmal nocturnal dyspnea Resp Denies chest congestion, Denies excessive phlegm production, Denies pain on inspiration, Denies pain with cough and Denies stridor Musc Denies myalgias Neuro Reports Normal hearing present and Denies headache(s) Endo Denies excessive sweating Abe/Lymph Denies lymphadenopathy Aller/Immun Denies itchy eyes and Denies seasonal rhinorrhea Physical Exam Vital Signs: Last Vital Signs Pulse 101 H 12/28/23 15:09 BP 136/94 H 12/28/23 15:09 Pulse Ox 94 12/28/23 15:09 Oxygen Delivery Method Room Air 12/28/23 15:09 BMI result Body Mass Index 36.6 Const General: cooperative, healthy appearing, comfortable, no acute distress, well developed and alert Nutritional Appearance: obese Orientation/consciousness: patient oriented x3 Limitations: no limitations HEENT Head: Yes normal to inspection, Yes normocephalic and Yes atraumatic Ears: hearing grossly normal bilaterally and external ears normal Eyes General: appearance normal, both eyes and all related structures Eyelids: Yes eyelids normal Sclerae: sclerae normal EOM: EOMs intact bilaterally Neck Neck: Yes normal visual inspection and Yes no lymphadenopathy Lymphatic: no lymphadenopathy noted Chest Chest palpation & inspection: normal inspection of the chest Resp Effort & Inspection: normal respiratory effort, able to speak in complete sentences, no audible wheezes, no cough, no stridor, not tachypneic, no tripod positioning and no use of accessory muscles Auscultation: diminished lung sounds (bases) and rub present (bilateral upper lobes) Cardio Jugular venous distension: no JVD Rate: regular rate Rhythm: regular rhythm Skin Other: warm, dry General skin exam: no rashes or lesions noted Neuro General: patient oriented x3 Cranial nerves: Yes Normal hearing present Cognition (Neuro): normal cognition Gait exam (Neuro): Normal gait present Extrem General: Yes normal to inspection, Yes capillary refill normal, Yes no clubbing, cyanosis or edema and Yes no pedal edema Psych Appearance: grossly normal and well kempt Speech and movement: Normal speech and movement present and Clear speech present Affect: normal affect Attitude: cooperative Thought process: Normal thought process present Thought content: Normal thought content present Insight: Good insight present (Psych) Judgement: Good judgement present (Psych) Assessment & Plan Assessment & Plan (1) Asthma: Code(s): J45.909 - Unspecified asthma, uncomplicated Category: Medical (2) Environmental allergies: Code(s): Z91.09 - Other allergy status, other than to drugs and biological substances Category: Medical (3) Abnormal lung sounds: Code(s): R09.89 - Other specified symptoms and signs involving the circulatory and respiratory systems Category: Medical (4) Rheumatoid arthritis: Code(s): M06.9 - Rheumatoid arthritis, unspecified Category: Medical Plan Lesley presents for pulmonary evaluation for worsening control of asthma. Will refill her symbicort 80 mcg and albuterol neb solution, as she previously did well with this regimen. Will send for PFT to assess severity of asthma as well as any restriction from possible ILD, as patient with RA on plaquenil the past few years and with abnormal lung sounds. Prior CXR unremarkable. All questions were answered and patient is in agreement of plan. Will follow up to review results and response to medication regimen. Orders: Orders Other Ref Test - Misc 12/28/23 Z91.09 - Other allergy status, other than to drugs and biological substances Complete Blood Count Auto Diff 12/28/23 Z91.09 - Other allergy status, other than to drugs and biological substances Immunoglobulin E 12/28/23 Z91.09 - Other allergy status, other than to drugs and biological substances Resp Allergy Profile Region I 12/28/23 Z91.09 - Other allergy status, other than to drugs and biological substances CT chest wo IV con 12/28/23 R09.89 - Other specified symptoms and signs involving the circulatory and respiratory systems PFT pulmonary function test Today J45.909 - Unspecified asthma, uncomplicated Medications: New budesonide-formoterol 80-4.5 mcg/actuation (Symbicort) 2 puffs inhalation Q12H 10.2 grams 3RF albuterol sulfate 2.5 mg (3 mL) inhalation Q4-6H PRN 180 mL 0RF shortness of breath or wheezing Coding Level of Care Code New Pt Level 4 (96604) Diagnoses Asthma J45.909 Environmental allergies Z91.09 Abnormal lung sounds R09.89 Rheumatoid arthritis M06.9
[2023-12-28 15:09] VITALS: BP 136/94; PULSE 101; O2SAT 94; BMI 36.6
== END 2023-12-28 15:47 | disposition home or self-care (01) ==
PROVIDERS: PCP Internal Medicine; Referring Provider Nurse Practitioner Family; Visit Provider Nurse Practitioner Family
DX: J45.909 Unspecified asthma, uncomplicated (principal); Z91.09 Other allergy status, other than to drugs and biological substances; R09.89 Other specified symptoms and signs involving the circulatory and respiratory systems; M06.9 Rheumatoid arthritis, unspecified
CPT/HCPCS: 99204

== ENCOUNTER 2023-12-28 15:03 | Outpatient (REF) | payer OTHER, SELFPAY ==
[2023-12-28 16:06] LABS: MANUAL DIFF FLAG NO
[2023-12-28 16:46] LABS: Basophils Absolute Auto 0.1 X10*3/uL (0.0-0.2); Basophils Percent Auto 1.2 % (0-2); Eosinophils Absolute Auto 0.3 X10*3/uL (0.0-0.4); Hematocrit 43.8 % (37.0-47.0); Hemoglobin 14.9 g/dl (12.0-16.0); Imm Gran Abs Auto 0.02 X10*3/uL (0.00-0.03); Imm Gran Pct Auto 0.3 % (0.0-0.4); Lymphocytes Absolute Auto 1.2 X10*3/uL (1.2-4.9); Lymphocytes Percent Auto 20.3 % (20-40); Mean Corpuscular Hemoglobin 31.4 pg (27.0-33.0); Mean Corpuscular Volume 92.4 fL (80.0-98.0); Mean Platelet Volume 10.4 fL (9.4-12.3); Monocytes Absolute Auto 0.5 X10*3/uL (0.1-1.2); Monocytes Percent Auto 8.8 % (2-11); Neutrophils Absolute Auto 3.9 x10*3/uL (2.0-8.3); Neutrophils Percent Auto 64.4 % (45-73); Platelet Count 294 X10*3/uL (160-400); Red Blood Count 4.74 X10*6/uL (4.20-5.50); Red Cell Distribution Width 14.1 % (11.0-16.0); White Blood Count 6.1 X10*3/uL (4.8-10.8)
[2024-01-06 02:13] LABS: Class Alternaria alternata 0; Class Aspergillus fumigatus 0; Class Bermuda Grass 0; Class Birch 0; Class Cat Dander 0; Class Cladosporium herbarum 0; Class Cockroach 0; Class Common Ragweed 0; Class Cottonwood 0; Class Derm. pterony 0; Class Dermatophagoides farinae 0; Class Dog Dander 0; Class Elm 0; Class Maple Box Elder 0; Class Mountain Cedar 0; Class Mouse Urine Protein 0; Class Mugwort 0; Class Oak 0; Class Penicillium crysogenum 0; Class Rough Pigweed 0; Class Sheep Sorrel 0; Class Sycamore 0; Class Timothy Grass 0; Class Walnut Tree 0; Class White Ash 0; Class White Mulberry 0; D001 IgE D pteronyssinus <0.10 kU/L; D002 - IgE D farinae <0.10 kU/L; E001 - IgE Cat Dander <0.10 kU/L; E005 - IgE Dog Dander <0.10 kU/L; E072-IgE Mouse Urine <0.10 kU/L; G002 IgE Bermuda Grass <0.10 kU/L; G006 - IgE Timothy Grass <0.10 kU/L; I006-IgE Cockroach, German <0.10 kU/L; Immunoglobulin E 3 kU/L (<OR=114); M001 IgE Penicillium chrysogen <0.10 kU/L; M002 - IgE Cladosporium herbar <0.10 kU/L; M003 - IgE Aspergillus fumigat <0.10 kU/L; M006 - IgE Alternaria alternat <0.10 kU/L; T001 IgE Maple/Box Elder <0.10 kU/L; T003 IgE Common Silver Birch <0.10 kU/L; T006 - IgE Cedar, Mountain <0.10 kU/L; T007 - IgE Oak, White <0.10 kU/L; T008 IgE Elm, American <0.10 kU/L; T010 - IgE Walnut <0.10 kU/L; T011 - IgE Maple Leaf Sycamore <0.10 kU/L; T014 - IgE Cottonwood <0.10 kU/L; T015 - IgE Ash, White <0.10 kU/L; T070 - IgE White Mulberry <0.10 kU/L; W001 - IgE Ragweed, Short <0.10 kU/L; W006 - IgE Mugwort <0.10 kU/L; W014 IgE Pigweed, Common <0.10 kU/L; W018 IgE Sheep Sorrel <0.10 kU/L
== END 2023-12-28 15:04 | disposition home or self-care (01) ==
LOC: HO.LAB 15:03
PROVIDERS: PCP Internal Medicine; Referring Provider Nurse Practitioner Family; Visit Provider Nurse Practitioner Family
DX: Z91.09 Other allergy status, other than to drugs and biological substances (principal); J45.909 Unspecified asthma, uncomplicated; R09.89 Other specified symptoms and signs involving the circulatory and respiratory systems; R06.9 Unspecified abnormalities of breathing
CPT/HCPCS: 82785; 85025; 86003; 86331; 99202

== ENCOUNTER → 2024-02-11 13:45 | Outpatient (BNV) | payer OTHER, SELFPAY | PROVIDERS: PCP Internal Medicine; Visit Provider Radiology Diagnostic Radiology | DX: K76.9 Liver disease, unspecified (principal) | CPT/HCPCS: 74183 ==

== ENCOUNTER 2024-02-11 13:49 | Outpatient (REF) | payer OTHER, SELFPAY ==
--- NOTE | ~2024-02-11 | MR_ITS ---
EXAMINATION: MR ABDOMEN WITHOUT AND WITH CONTRAST CLINICAL INFORMATION: Liver disease, unspecified. COMPARISON: Correlated to CT dated September 10, 2021 and recent ultrasound dated December 25, 2023. TECHNIQUE: MR abdomen was performed without and with use of 9.0 mL intravenous Gadavist gadolinium contrast. Postcontrast images are performed in multiphase dynamic sequences. Imaging was performed in 3 planes. No reported immediate complications. FINDINGS: Submitted for interpretation on April 14, 2024. LIVER, GALLBLADDER, AND BILIARY TREE: Liver measures 15 cm. No focal mass. Portal veins, hepatic veins and intrahepatic portion of the IVC are patent. No intrahepatic biliary ductal dilatation. I do not see gallbladder. The common bile duct measures 4 mm. PANCREAS: No focal mass. No peripancreatic fluid collection. No main pancreatic ductal dilatation. SPLEEN: 10 cm. No focal mass. ADRENAL GLANDS: Soft tissue fullness, left adrenal gland without gross nodular lesion demonstrated drop-off the signal from the in and out of phase sequences. KIDNEYS AND URETERS: Normal enhancement pattern through the kidneys. No hydronephrosis. No enhancing mass. GASTROINTESTINAL TRACT: No intestinal obstruction pattern. No ascites. ABDOMINAL WALL: There is a paramagnetic field distortion in the epigastric region LYMPH NODES: No lymphadenopathy, retroperitoneal or mesenteric.. VASCULAR: No aneurysm or dissection, abdominal aorta. OSSEOUS STRUCTURES: Spondylosis, L3-4 and L4-5 levels resulting in grade 1 retrolisthesis at L3-4. Prominent epidural fat at L5-S1. MR/MR abdomen wo/w con IMPRESSION: Normal-sized liver without focal lesion or signal abnormality. Electronically signed by: Jay Chamberlain MD 04/14/2024 11:50 AM EST
[2024-02-11] MEDS: gadobutroL 10 ML VIAL IVPUSH (14:36)
== END 2024-02-11 13:50 | disposition home or self-care (01) ==
LOC: HO.MRI 13:49
PROVIDERS: PCP Internal Medicine; Visit Provider Nurse Practitioner Family
DX: K76.9 Liver disease, unspecified (principal)
CPT/HCPCS: 74183; A9585

== ENCOUNTER 2024-02-29 13:57 | Outpatient (AMB) | payer OTHER, SELFPAY ==
--- NOTE | 2024-02-29 13:59 | MHC.OFFVIS ---
Vital Signs 02/29/24 14:01 Height 5 ft Weight 186 lb 4.65 oz BMI 36.4 BP 120/84 Blood Pressure Location Rt brachial Position Sitting Pulse 83 Pulse Source Pulse Oximeter Pulse Oximetry (%) 90 L Oxygen Delivery Method Room Air Intake Visit Reasons: Asthma Allergies No Known Allergies Allergy (Verified 02/29/24 14:04) HPI HPI Asthma: Details: Pippa is a pleasant 48 year old female, never smoker, with underlying asthma, GERD and RA on plaquenil, under the care of [facility]. She was admitted in July 2023 for acute respiratory failure secondary to influenza A requiring prolonged high flow. At this time no Chest CT performed. She was discharged on symbicort 80 mcg with good control of symptoms, however since the last visit, has had worsening respiratory symptoms. She reports dyspnea on minimal exertion, dry cough and wheezing. She has been using albuterol MDI/neb frequently with moderate effect. At the last visit, she was sent for chest CT however there were insurance coverage issues. Today she presents to review PFT and RAST. She denies any hospitalizations or visits to urgent care since last visit. [facility] Medical History Sessile serrated polyp of colon Abdominal pain Morbid obesity due to excess calories Physical exam Obesity (BMI 30-39.9) Osteoarthritis of right ankle Allergic rhinitis GERD (gastroesophageal reflux disease) Asthma Rheumatoid arthritis Surgical History History of esophagogastroduodenoscopy (EGD) H/O colonoscopy Hx laparoscopic cholecystectomy (~09/2018) History of total left hip arthroplasty Hx of tubal ligation H/O section Hx of laparoscopic gastric banding Family History Father Diabetes mellitus Hypertension Maternal Aunt Breast cancer Mother CAD (coronary artery disease) Diabetes mellitus Sister No problems noted. Brother No problems noted. Brother No problems noted. Brother No problems noted. Son No problems noted. Daughter Hypertension Asthma Daughter Obesity ADHD Social History Housing: House Alcohol intake: current Alcohol intake frequency: holidays/special occasions only Alcohol type: beer, wine and hard liquor Patient Tobacco Use Status: Never used Tobacco e-Cigarette/Vaping Use: Never Used Second Hand Smoke Exposure: Yes service: No Current occupational status: disabled Cognitive needs: No Hearing needs: No Vision needs: Yes Female Reproductive History Menstrual Age of Menarche: 11 Review of Systems Const Denies chills, Denies excessive sweating, Denies fever(s), Denies headache(s) and Denies night sweats Eyes Denies dry eyes, Denies irritation and Denies itchy eyes ENT Reports Normal hearing present, Denies headache(s), Denies nasal congestion, Denies nasal discharge, Denies post nasal drip and Denies sore throat Card Denies chest pain, Denies chest pain at rest, Denies chest pain with activity, Denies claudication, Denies leg edema, Denies orthopnea and Denies paroxysmal nocturnal dyspnea Resp Denies chest congestion, Denies excessive phlegm production, Denies pain on inspiration, Denies pain with cough and Denies stridor Musc Denies myalgias Neuro Reports Normal hearing present and Denies headache(s) Endo Denies excessive sweating Abe/Lymph Denies lymphadenopathy Aller/Immun Denies itchy eyes and Denies seasonal rhinorrhea Physical Exam Vital Signs: Last Vital Signs Pulse 83 02/29/24 14:01 BP 120/84 02/29/24 14:01 Pulse Ox 90 L 02/29/24 14:01 Oxygen Delivery Method Room Air 02/29/24 14:01 BMI result Body Mass Index 36.4 Const General: cooperative, healthy appearing, comfortable, no acute distress, well developed and alert Nutritional Appearance: obese Orientation/consciousness: patient oriented x3 Limitations: no limitations HEENT Head: Yes normal to inspection, Yes normocephalic and Yes atraumatic Ears: hearing grossly normal bilaterally and external ears normal Eyes General: appearance normal, both eyes and all related structures Eyelids: Yes eyelids normal Sclerae: sclerae normal EOM: EOMs intact bilaterally Neck Neck: Yes normal visual inspection and Yes no lymphadenopathy Lymphatic: no lymphadenopathy noted Chest Chest palpation & inspection: normal inspection of the chest Resp Effort & Inspection: normal respiratory effort, able to speak in complete sentences, no audible wheezes, no cough, no stridor, not tachypneic, no tripod positioning and no use of accessory muscles Auscultation: diminished lung sounds (bases) and rub present (bilateral upper lobes) Cardio Jugular venous distension: no JVD Rate: regular rate Rhythm: regular rhythm Skin Other: warm, dry General skin exam: no rashes or lesions noted Neuro General: patient oriented x3 Cranial nerves: Yes Normal hearing present Cognition (Neuro): normal cognition Gait exam (Neuro): Normal gait present Extrem General: Yes normal to inspection, Yes capillary refill normal, Yes no clubbing, cyanosis or edema and Yes no pedal edema Psych Appearance: grossly normal and well kempt Speech and movement: Normal speech and movement present and Clear speech present Affect: normal affect Attitude: cooperative Thought process: Normal thought process present Thought content: Normal thought content present Insight: Good insight present (Psych) Judgement: Good judgement present (Psych) Office Procedures 6 Minute Walk Time:: 14:45 SPO2 % at rest: 95 Pulse at rest: 83 SPO2 % during excercise: 87 Pulse during excercise: 115 SPO2 % after excercise: 94 Pulse after excercise: 79 Distance in yards walked: 120 Esperanza Score: 4 Performance Observations:: Pippa walked on level ground with a cane to her R hand, she walked on room air for 60 yards before her SPO2 decreased to 87%. O2 started at 1 lpm and her SPO2 recovered to 94%. She maintained her SPO2 93-94% on 1 lpm O2 for the remainder of the walk. [id number] - 6 Minute Walk Results Reviewed Results Reviewed: PFT's Complete Please click on pdf link to open report PFT's Complete Name: PIPPA BARAHONA CMRN: [id number] Sex: F Age: 48 Height: 60.2 In Weight: 192 Lb BMI: 37.3 Referring: Nydia Gillespie M.D. Date of test: 28-Jan-2024 SPIROMETRY: FEV1 1.45, 64%; FVC 1.59, 58%; FEV1/FVC 91%; PEFR 5.24, 88%; Post FEV1 1.55, 68% (7%); FVC 1.65, 60% (4%); PEFR 5.02, 85%; (-4%) LUNG VOLUMES (Box): TLC 2.60, 60%; FRC 1.57, 72%; RV 1.06, 85%, IC 1.03, ERV 0.51; sGaw 0.60, predicted > 0.11 DIFFUSING CAPACITY: DLCO and KCO are 53% predicted adjusted for lung volume, Hb, barometric pressure DLCO 7.39, 42%, KCO 3.44, 82% predicteds adjusted for Hb of 13 VA 2.15, 51% 1.55, 56%, 97% of FVC OXIMETRY: 96% on room air at rest INTERPRETATION: Moderate ventilatory defect, without obstruction. The vital capacity is reduced, probably due to a restrictive process. PEFR is increased relative to FVC. All efforts with high back extrapolated volume (volume at extrapolated time 0) so actual FEV1 likely a little lower. No significant response to bronchodilator. Moderate restrictive defect. The diffusing capacity is moderately reduced. Oxygen saturation (96%) is normal on room air at rest. The finding of restriction, high flows relative to FVC, with low DLCO is consistent with interstitial lung disease. Interpreting Physician: Rg Barraza M.D. Assessment & Plan Assessment & Plan (1) Asthma: Code(s): J45.909 - Unspecified asthma, uncomplicated Category: Medical (2) Interstitial lung disease: Code(s): J84.9 - Interstitial pulmonary disease, unspecified Category: Medical (3) Abnormal lung sounds: Code(s): R09.89 - Other specified symptoms and signs involving the circulatory and respiratory systems Category: Medical (4) Rheumatoid arthritis: Code(s): M06.9 - Rheumatoid arthritis, unspecified Category: Medical (5) Hypoxia: Code(s): R09.02 - Hypoxemia Category: Medical Plan Pippa reports worsening control of breathing since the last visit with increased dyspnea on exertion, dry cough and wheezing. She reports suboptimal control with symbicort 80 mcg, using albuterol frequently, will increase to 160 mcg. Reviewed PFT which revealed moderate restrictive defect, with moderately decreased DLCO and TLC. These findings in combination with worsening respiratory status and abnormal respiratory exam are highly suggestive of ILD. At the last visit a chest CT order was placed however due to insurance issues was not performed. Will reenter order to assess for underlying parenchymal condition. Given persistent postexhalation cough will send in prednisone. 6MWT performed and patient requires 1L supplemental oxygen with ambulation. Will enter this order. Will follow up to review chest CT results. She is aware if symptoms worsen to seek emergent care. All questions were answered and patient is in agreement of plan. Orders: Orders AMB 6 minute walk Today J45.909 - Unspecified asthma, uncomplicated CT chest wo IV con Today J84.9 - Interstitial pulmonary disease, unspecified, R09.02 - Hypoxemia, R09.89 - Other specified symptoms and signs involving the circulatory and respiratory systems Medications: New prednisone see taper instructions; 40 mg Daily x3 days, 30 mg daily x3 days, 20 mg daily x3 days, 10 mg daily x3 days 10 mg PO DIRECTED 30 tabs 0RF budesonide-formoterol 160-4.5 mcg/actuation (Symbicort) 2 puffs inhalation Q12H 10.2 grams 6RF Coding Level of Care Code Est Pt Level 4 (45386) Diagnoses Asthma J45.909 Interstitial lung disease J84.9 Abnormal lung sounds R09.89 Rheumatoid arthritis M06.9 Hypoxia R09.02 CPT Codes Coding ([id number])
[2024-02-29 14:01] VITALS: BP 120/84; PULSE 83; O2SAT 90; BMI 36.4
[2024-02-29 14:56] VITALS: PULSE 83; O2SAT 95
== END 2024-02-29 14:47 | disposition home or self-care (01) ==
PROVIDERS: PCP Internal Medicine; Visit Provider Nurse Practitioner Family
DX: J45.909 Unspecified asthma, uncomplicated (principal); J84.9 Interstitial pulmonary disease, unspecified; R09.89 Other specified symptoms and signs involving the circulatory and respiratory systems; M06.9 Rheumatoid arthritis, unspecified; R09.02 Hypoxemia
CPT/HCPCS: 94618; 99214

== ENCOUNTER → 2024-02-29 13:57 | Outpatient (BNVA) | payer OTHER, SELFPAY | PROVIDERS: PCP Internal Medicine; Visit Provider Nurse Practitioner Family | DX: J45.909 Unspecified asthma, uncomplicated (principal); J84.9 Interstitial pulmonary disease, unspecified; R09.89 Other specified symptoms and signs involving the circulatory and respiratory systems; M06.9 Rheumatoid arthritis, unspecified; R09.02 Hypoxemia | CPT/HCPCS: 94618; 99212 ==

== ENCOUNTER 2024-03-11 10:35 | Outpatient (AMB) | payer OTHER, SELFPAY ==
[2024-03-11 10:45] VITALS: BP 120/74; PULSE 64; O2SAT 100; BMI 37.1
--- NOTE | 2024-03-11 10:45 | MHC.OFFVIS ---
Vital Signs 03/11/24 10:45 Height 5 ft Weight 190 lb 0.615 oz BMI 37.1 BP 120/74 Blood Pressure Location Rt brachial Position Sitting Pulse 64 Pulse Source Pulse Oximeter Pulse Oximetry (%) 100 Oxygen Delivery Method Room Air Intake Visit Reasons: 3 month follow up Intake Note: Relevant Flags or Indicators ? Requires Agricultural Production Engineer? N Lesley presents in office today for a scheduled 3 mos FUV. CC; No recent labs, or med orders placed. ?Pt did have MRI since last visit. Relevant GI Sx as reported per pt? None ? Hx of any recent surgeries? None Allergies No Known Allergies Allergy (Verified 03/21/24 13:06) HPI HPI 3 month follow up: Details: LAST VISIT: Moderate persistent asthma Chronic idiopathic constipation GERD (gastroesophageal reflux disease) Abdominal pain Hx of laparoscopic gastric banding Postprandial abdominal bloating Plan Patient will continue PPI and sucralfate. Continue taking senna and fiber supplement. Ultrasound ordered. Most likely patient's pain is related to gas trapping. Discussed with patient low FODMAP diet. List of food recommended as well as list of food to avoid given to patient. Patient will follow-up in 4 months, sooner on as needed basis. Referral to pulmonology for PFT Orders Orders US abdomen complete 12/25/23 R10.9 Referrals Pulmonology Referral J45.40 TODAY'S VISIT Patient is here today for follow-up. Since last visit patient has been feeling better. Reports her symptoms of acid reflux have been controlled for the most part. Patient also has been using Symbicort inhaler as prescribed by pulmonology. Last visit with them in February. On last visit patient had abdominal ultrasound that showed liver lesion and recommendation was made to do an MRI. Patient's MRI was done on February 10, however report has not been posted yet. Will call radiology to inquire about the reading. Patient denies any abdominal pain or discomfort, however patient does admit that occasionally she will have postprandial epigastric discomfort and bloating. Patient admits that she is not moving her bowels as good as she wishes. Still take Senokot and does not feel like she empties her bowels completely. Patient denies melena, hematochezia, unintentional weight loss or ribbon like stools. Denies any dyspepsia, dysphagia or odynophagia. [facility] Medical History Sessile serrated polyp of colon Abdominal pain Morbid obesity due to excess calories Physical exam Obesity (BMI 30-39.9) Osteoarthritis of right ankle Allergic rhinitis GERD (gastroesophageal reflux disease) Asthma Rheumatoid arthritis Surgical History History of esophagogastroduodenoscopy (EGD) H/O colonoscopy Hx laparoscopic cholecystectomy (~09/2018) History of total left hip arthroplasty Hx of tubal ligation H/O section Hx of laparoscopic gastric banding Family History Father Diabetes mellitus Hypertension Maternal Aunt Breast cancer Mother CAD (coronary artery disease) Diabetes mellitus Sister No problems noted. Brother No problems noted. Brother No problems noted. Brother No problems noted. Son No problems noted. Daughter Hypertension Asthma Daughter Obesity ADHD Social History Housing: House Alcohol intake: current Alcohol intake frequency: holidays/special occasions only Alcohol type: beer, wine and hard liquor Patient Tobacco Use Status: Never used Tobacco e-Cigarette/Vaping Use: Never Used Second Hand Smoke Exposure: Yes service: No Current occupational status: disabled Cognitive needs: No Hearing needs: No Vision needs: Yes Female Reproductive History Menstrual Age of Menarche: 11 Review of Systems Const Denies weight gain and Denies weight loss ENT Reports no additional complaints, Denies dysphagia and Denies odynophagia Card Reports no additional complaints Resp Reports no additional complaints GI Denies abdominal pain, Denies belching, Denies melena, Reports bloating, Denies change in bowel habits, Reports constipation, Denies dysphagia, Denies excessive flatus, Denies dyspepsia, Reports heartburn (OCCASIONAL), Denies diarrhea, Denies loose stools, Denies nausea, Denies odynophagia and Denies vomiting Reports no additional complaints Musc Reports no additional complaints Neuro Reports no additional complaints Psych Reports no additional complaints Endo Reports no additional complaints Physical Exam Vital Signs: Last Vital Signs Pulse 64 03/11/24 10:45 BP 120/74 03/11/24 10:45 Pulse Ox 100 03/11/24 10:45 Oxygen Delivery Method Room Air 03/11/24 10:45 BMI result Body Mass Index 37.1 Const General: healthy appearing and no acute distress Nutritional Appearance: obese Orientation/consciousness: patient oriented x3 Resp Effort & Inspection: normal respiratory effort, able to speak in complete sentences, no tracheal deviation and symmetric chest movement Auscultation: wheezes Cardio Rate: regular rate GI Inspection: Yes normal to inspection, No distended and Yes obesity Palpation (GI): Soft to palpation, not firm, nontender and No hepatosplenomegaly present Auscultation: normal bowel sounds General: Yes no CVA tenderness Back/Spine/Pelvis Back: no CVA tenderness Skin General skin exam: elasticity normal, turgor normal and dry skin Neuro General: patient oriented x3 Psych Appearance: grossly normal Mental Status: mental status grossly normal Results Reviewed Results Reviewed: ABDOMINAL ULTRASOUND FINDINGS: PANCREAS: Limited visualization of pancreatic tail and head. Imaged portion of pancreatic body is unremarkable. ABDOMINAL AORTA: Limited visualization of the abdominal aorta. Imaged portions of the abdominal aorta are within normal limits in caliber. INFERIOR VENA CAVA: Visualized portions are normal. LIVER: Increased hepatic parenchymal heterogeneity and echogenicity could be associated with hepatocellular disease/hepatic steatosis and substantially limits visualization. Correlation with liver function tests and clinical exam recommended to determine further management. A right hepatic 0.8 x 0.5 x 0.8 cm echogenic lesion was not appreciated on ultrasound of 10/01/[address] scan of 09/10/2021. Differential considerations include hemangioma versus other mass lesion. MRI recommended for further evaluation. GALLBLADDER: Surgically absent. COMMON BILE DUCT: Normal in caliber measuring 0.4 cm in diameter. RIGHT KIDNEY: No hydronephrosis. No renal calculi. Limited visualization. The kidney measures 10.4 cm in maximum dimension. LEFT KIDNEY: No hydronephrosis. No renal calculi. Limited visualization. The kidney measures 10.7 cm in maximum dimension. SPLEEN: Normal. The spleen measures 10.6 cm in maximum dimension. FREE FLUID: None. US/US abdomen complete IMPRESSION: Increased hepatic parenchymal heterogeneity and echogenicity could be associated with hepatocellular disease/hepatic steatosis and substantially limits visualization. Correlation with liver function tests and clinical exam recommended to determine further management. A right hepatic 0.8 x 0.5 x 0.8 cm echogenic lesion was not appreciated on ultrasound of 10/01/[address] scan of 09/10/2021. Differential considerations include hemangioma versus other mass lesion. MRI recommended for further evaluation. Assessment & Plan Assessment & Plan (1) Moderate persistent asthma: Code(s): J45.40 - Moderate persistent asthma, uncomplicated Category: Medical Qualifiers: Asthma complication type: uncomplicated Qualified Code(s): J45.40 - Moderate persistent asthma, uncomplicated (2) Chronic idiopathic constipation: Code(s): K59.04 - Chronic idiopathic constipation Category: Medical (3) GERD (gastroesophageal reflux disease): Code(s): K21.9 - Gastro-esophageal reflux disease without esophagitis Category: Medical Qualifiers: Esophagitis presence: esophagitis presence not specified Qualified Code(s): K21.9 - Gastro-esophageal reflux disease without esophagitis (4) Abdominal pain: Code(s): R10.9 - Unspecified abdominal pain Category: Medical Qualifiers: Abdominal location: generalized Qualified Code(s): R10.84 - Generalized abdominal pain (5) Hx of laparoscopic gastric banding: Code(s): Z98.84 - Bariatric surgery status Category: Medical (6) Postprandial abdominal bloating: Code(s): R14.0 - Abdominal distension (gaseous) (7) Postprandial epigastric pain: Code(s): R10.13 - Epigastric pain Plan Continue omeprazole daily. Avoid dietary triggers and late night snacking. Smaller meals and more often recommended. Script for Dulcolax given to patient. Increase fluid intake and activity to promote better bowel motility. Follow-up in 3 months, sooner on as needed basis. She is agreeable to this plan and verbalizes understanding of instructions. She was given the opportunity to ask questions and all questions answered. Thank you for allowing me to participate in her care Medications: New simethicone (Gas Relief (simethicone)) 125 mg PO TID-QID PRN 120 caps 2RF abdominal distention R14.0 - Abdominal distension (gaseous) bisacodyl (Dulcolax (bisacodyl)) 10 mg (2 x 5 mg) PO BEDTIME 180 tabs 4RF Discontinued sennosides Discontinued Reason: Doctor's Order 17.2 mg (2 x 8.6 mg) PO BEDTIME 180 tabs 3RF constipation K59.00 - Constipation, unspecified esomeprazole magnesium Discontinued Reason: Patient no longer taking 40 mg PO DAILY 90 caps 2RF K21.9 - Gastro-esophageal reflux disease without esophagitis Coding Level of Care Code Est Pt Level 4 (20335) Complex EM visit Add On G2211 Diagnoses Moderate persistent asthma without complication J45.40 Asthma complication type: uncomplicated Chronic idiopathic constipation K59.04 Gastroesophageal reflux disease, unspecified whether esophagitis present K21.9 Esophagitis presence: esophagitis presence not specified Generalized abdominal pain R10.84 Abdominal location: generalized Hx of laparoscopic gastric banding Z98.84 Postprandial abdominal bloating R14.0 Postprandial epigastric pain R10.13 Time Spent (min) 35 Comment 20 minutes spent with patient and additional 10 minutes spent reviewing her records
== END 2024-03-11 11:30 | disposition home or self-care (01) ==
LOC: HO.HGI 10:35
PROVIDERS: PCP Internal Medicine; Visit Provider Nurse Practitioner Family
DX: J45.40 Moderate persistent asthma, uncomplicated (principal); K59.04 Chronic idiopathic constipation; K21.9 Gastro-esophageal reflux disease without esophagitis; R10.84 Generalized abdominal pain; Z98.84 Bariatric surgery status; R14.0 Abdominal distension (gaseous); R10.13 Epigastric pain
CPT/HCPCS: 99214; G2211

== ENCOUNTER → 2024-03-11 10:35 | Outpatient (BNVA) | payer OTHER, SELFPAY | PROVIDERS: PCP Internal Medicine; Visit Provider Nurse Practitioner Family | DX: J45.40 Moderate persistent asthma, uncomplicated (principal); K59.04 Chronic idiopathic constipation; K21.9 Gastro-esophageal reflux disease without esophagitis; R10.84 Generalized abdominal pain; R14.0 Abdominal distension (gaseous); R10.13 Epigastric pain; Z98.84 Bariatric surgery status | CPT/HCPCS: 99212 ==

== ENCOUNTER 2024-03-21 12:59 | Outpatient (AMB) | payer OTHER, SELFPAY ==
--- NOTE | 2024-03-21 13:02 | MHC.OFFVIS ---
Vital Signs 03/21/24 13:04 Height 5 ft Weight 188 lb 7.924 oz BMI 36.8 BP 132/84 Blood Pressure Location Rt brachial Position Sitting Pulse 84 Pulse Source Pulse Oximeter Pulse Oximetry (%) 98 Oxygen Delivery Method Nasal Cannula Oxygen Flow Rate 1 Intake Visit Reasons: Asthma Allergies No Known Allergies Allergy (Verified 03/21/24 13:06) HPI HPI Asthma: Details: Lesley is a pleasant 48 year old female, never smoker, with underlying asthma, GERD and RA on plaquenil and leflunomide, under the care of [facility]. She was admitted in July 2023 for acute respiratory failure secondary to influenza A requiring prolonged high flow. At the last visit she was started on supplemental oxygen 1L with exertion and symbicort was increased to 160mcg. PFT revealed moderate restrictive defect with decreased TLC and DLCO suggestive of ILD. Chest ct previously denied by insurance, now approved and will undergo 04/15. Since the last visit, she has been evaluated by rheumatology who d/c leflunomide DMARD two weeks ago, as she may have component of medication induced ILD. She reports dyspnea on exertion has improved with supplemental oxygen. She continue to report dry cough and wheezing, however improved after recent prednisone. She has been using albuterol MDI/neb frequently with moderate effect. FORMERLY [facility] Medical History Sessile serrated polyp of colon Abdominal pain Morbid obesity due to excess calories Physical exam Obesity (BMI 30-39.9) Osteoarthritis of right ankle Allergic rhinitis GERD (gastroesophageal reflux disease) Asthma Rheumatoid arthritis Surgical History History of esophagogastroduodenoscopy (EGD) H/O colonoscopy Hx laparoscopic cholecystectomy (~09/2018) History of total left hip arthroplasty Hx of tubal ligation H/O section Hx of laparoscopic gastric banding Family History Father Diabetes mellitus Hypertension Maternal Aunt Breast cancer Mother CAD (coronary artery disease) Diabetes mellitus Sister No problems noted. Brother No problems noted. Brother No problems noted. Brother No problems noted. Son No problems noted. Daughter Hypertension Asthma Daughter Obesity ADHD Social History (Reviewed 03/21/24 @ 13:06 by MELBA Ashby Housing: House Alcohol intake: current Alcohol intake frequency: holidays/special occasions only Alcohol type: beer, wine and hard liquor Patient Tobacco Use Status: Never used Tobacco e-Cigarette/Vaping Use: Never Used Second Hand Smoke Exposure: Yes service: No Current occupational status: disabled Cognitive needs: No Hearing needs: No Vision needs: Yes Female Reproductive History Menstrual Age of Menarche: 11 Review of Systems Const Denies chills, Denies excessive sweating, Denies fever(s), Denies headache(s) and Denies night sweats Eyes Denies dry eyes, Denies irritation and Denies itchy eyes ENT Reports Normal hearing present, Denies headache(s), Denies nasal congestion, Denies nasal discharge, Denies post nasal drip and Denies sore throat Card Denies chest pain, Denies chest pain at rest, Denies chest pain with activity, Denies claudication, Denies leg edema, Denies orthopnea and Denies paroxysmal nocturnal dyspnea Resp Denies chest congestion, Denies excessive phlegm production, Denies pain on inspiration, Denies pain with cough and Denies stridor Musc Denies myalgias Neuro Reports Normal hearing present and Denies headache(s) Endo Denies excessive sweating Abe/Lymph Denies lymphadenopathy Aller/Immun Denies itchy eyes and Denies seasonal rhinorrhea Physical Exam Vital Signs: Last Vital Signs Pulse 84 03/21/24 13:04 BP 132/84 03/21/24 13:04 Pulse Ox 98 03/21/24 13:04 Oxygen Delivery Method Nasal Cannula 03/21/24 13:04 Oxygen Flow Rate 1 03/21/24 13:04 BMI result Body Mass Index 36.8 Const General: cooperative, healthy appearing, comfortable, no acute distress, well developed and alert Nutritional Appearance: obese Orientation/consciousness: patient oriented x3 Limitations: no limitations HEENT Head: Yes normal to inspection, Yes normocephalic and Yes atraumatic Ears: hearing grossly normal bilaterally and external ears normal Eyes General: appearance normal, both eyes and all related structures Eyelids: Yes eyelids normal Sclerae: sclerae normal EOM: EOMs intact bilaterally Neck Neck: Yes normal visual inspection and Yes no lymphadenopathy Lymphatic: no lymphadenopathy noted Chest Chest palpation & inspection: normal inspection of the chest Resp Effort & Inspection: normal respiratory effort, able to speak in complete sentences, no audible wheezes, no cough, no stridor, not tachypneic, no tripod positioning and no use of accessory muscles Auscultation: diminished lung sounds (bases) and rub present (bilateral upper lobes) Cardio Jugular venous distension: no JVD Rate: regular rate Rhythm: regular rhythm Skin Other: warm, dry General skin exam: no rashes or lesions noted Neuro General: patient oriented x3 Cranial nerves: Yes Normal hearing present Cognition (Neuro): normal cognition Gait exam (Neuro): Normal gait present Extrem General: Yes normal to inspection, Yes capillary refill normal, Yes no clubbing, cyanosis or edema and Yes no pedal edema Psych Appearance: grossly normal and well kempt Speech and movement: Normal speech and movement present and Clear speech present Affect: normal affect Attitude: cooperative Thought process: Normal thought process present Thought content: Normal thought content present Insight: Good insight present (Psych) Judgement: Good judgement present (Psych) Assessment & Plan Assessment & Plan (1) Asthma: Code(s): J45.909 - Unspecified asthma, uncomplicated Category: Medical (2) Interstitial lung disease: Code(s): J84.9 - Interstitial pulmonary disease, unspecified Category: Medical (3) Abnormal lung sounds: Code(s): R09.89 - Other specified symptoms and signs involving the circulatory and respiratory systems Category: Medical (4) Rheumatoid arthritis: Code(s): M06.9 - Rheumatoid arthritis, unspecified Category: Medical (5) Hypoxia: Code(s): R09.02 - Hypoxemia Category: Medical Plan At this time, advised to continue Symbicort and supplemental oxygen 1L with exertion. Will send for overnight oximetry to assess for nocturnal hypoxemia. Will await chest ct results. All questions were answered and patient is in agreement of plan. Will follow up to review chest ct results or sooner if needed. Orders: Orders Overnight Pulse Oximetry Today R09.02 - Hypoxemia Coding Level of Care Code Est Pt Level 4 (61106) Diagnoses Asthma J45.909 Interstitial lung disease J84.9 Abnormal lung sounds R09.89 Rheumatoid arthritis M06.9 Hypoxia R09.02
[2024-03-21 13:04] VITALS: BP 132/84; PULSE 84; O2SAT 98; BMI 36.8
== END 2024-03-21 13:25 | disposition home or self-care (01) ==
PROVIDERS: PCP Internal Medicine; Visit Provider Nurse Practitioner Family
DX: J45.909 Unspecified asthma, uncomplicated (principal); J84.9 Interstitial pulmonary disease, unspecified; R09.89 Other specified symptoms and signs involving the circulatory and respiratory systems; M06.9 Rheumatoid arthritis, unspecified; R09.02 Hypoxemia
CPT/HCPCS: 99214

== ENCOUNTER → 2024-03-21 12:59 | Outpatient (BNVA) | payer OTHER, SELFPAY | PROVIDERS: PCP Internal Medicine; Visit Provider Nurse Practitioner Family | DX: J45.909 Unspecified asthma, uncomplicated (principal); J84.9 Interstitial pulmonary disease, unspecified; R09.89 Other specified symptoms and signs involving the circulatory and respiratory systems; M06.9 Rheumatoid arthritis, unspecified; R09.02 Hypoxemia | CPT/HCPCS: 99212 ==

== ENCOUNTER 2024-04-15 16:51 | Outpatient (REF) | payer OTHER, SELFPAY ==
--- NOTE | ~2024-04-15 | CT_ITS ---
EXAMINATION: CT CHEST WITHOUT CONTRAST CLINICAL INFORMATION: Hypoxemia. COMPARISON: Most recent chest radiograph dated 10/01/2021. TECHNIQUE: Multidetector volumetric CT imaging of the chest was done. Axial MIP volume rendering provided. Sagittal and coronal reformatted images were obtained. This CT examination was performed using dose optimization techniques as appropriate, variously including the following: *Automated exposure control *Adjustment of mA and/or kV according to patient size (this includes techniques or standardized protocols for targeted exams where dose is matched to indication/reason for exam; i.e. extremities or head) *Use of iterative reconstruction technique DLP: 371 mGy-cm FINDINGS: COMPENSATOR: Unremarkable. LUNGS: There is scattered geographic ground-glass density within the lung parenchyma with additional areas of normal parenchymal density. Findings are consistent with a pattern of crazy paving. Findings are nonspecific and could represent a mild infectious or inflammatory process. No confluent airspace consolidation. Within the right upper lobe in the perihilar region and adjacent to the pulmonary vessels, there is a soft tissue nodule measuring 0.5 x 0.3 cm (axial image 218/531). Left upper lobe 0.2 cm pulmonary nodule (axial image 229/531). No large pulmonary mass. The central airways are patent. MEDIASTINUM: No cardiomegaly. No pericardial effusion. No thoracic aortic dilatation. Dilatation of the central pulmonary artery measuring up to 3.5 cm in ML dimension which could indicate elevated pulmonary artery pressures. Subcentimeter superior mediastinal lymph nodes. No significant lymphadenopathy. Unremarkable thyroid. CORONARY ARTERY CALCIFICATION: None visualized on this study. PLEURA: There is no pleural effusion. No pleural mass or thickening. AXILLA: No lymphadenopathy. UPPER ABDOMEN: Hypoattenuation of the hepatic parenchyma consistent with steatosis. Small superior right hepatic lobe parenchymal calcifications. No ductal dilatation. Status post cholecystectomy. Lap-band in appropriate position. Small calcification within the right adrenal gland without significant nodularity. Findings are benign and no follow-up imaging is recommended. OSSEOUS STRUCTURES: Unremarkable. CT/CT chest wo IV con IMPRESSION: 1. Geographic groundglass densities with additional areas of abnormal parenchymal density throughout the lung. Findings are nonspecific and could represent a mild infectious or inflammatory process. No confluent airspace consolidation. 2. Dilatation of the central pulmonary artery which could indicate pulmonary hypertension. 3. Right upper lobe perihilar 0.5 cm pulmonary nodule. Left upper lobe 0.2 cm pulmonary nodule. According to the UPDATED 2017 Fleischner Society recommendations, the advised follow-up imaging for nodules <6mm in the upper lobes is not necessarily required in low-risk patients. In high-risk patients with a nodule in the upper lobe and/or demonstrating suspicious morphology, an optional CT follow-up at 12 months may be obtained. If stable at 12 months, no further follow-up is recommended. 4. Hepatic steatosis. Fleischner guidelines were followed. Electronically signed by: Tyree Rivera MD 04/18/2024 10:18 AM [facility]
== END 2024-04-15 16:52 | disposition home or self-care (01) ==
LOC: HO.CT 16:51
PROVIDERS: PCP Internal Medicine; Visit Provider Nurse Practitioner Family
DX: R09.02 Hypoxemia (principal); J84.9 Interstitial pulmonary disease, unspecified; R09.89 Other specified symptoms and signs involving the circulatory and respiratory systems
CPT/HCPCS: 71250

== ENCOUNTER 2024-04-25 15:18 | Outpatient (AMB) | payer OTHER, SELFPAY ==
--- NOTE | 2024-04-25 12:47 | MHC.OFFVIS ---
Vital Signs 04/25/24 15:23 Height 5 ft Weight 186 lb 4.65 oz BMI 36.4 BP 126/84 Blood Pressure Location Lt brachial Position Sitting Pulse 72 Pulse Source Pulse Oximeter Pulse Oximetry (%) 98 Oxygen Delivery Method Nasal Cannula Oxygen Flow Rate 1 Intake Visit Reasons: Asthma Allergies No Known Allergies Allergy (Verified 04/25/24 15:27) HPI HPI Asthma: Details: Lesley is a pleasant 48 year old female, never smoker, with underlying asthma, GERD and RA on plaquenil under the care of [facility]. She was admitted in July 2023 for acute respiratory failure secondary to influenza A requiring prolonged high flow. She has been maintained on supplemental oxygen 1L with exertion and symbicort was increased to 160mcg. She has been evaluated by rheumatology who d/c leflunomide DMARD two weeks ago, as initially thought she may have component of medication induced ILD. PFT revealed moderate restrictive defect with decreased TLC and DLCO suggestive of ILD. Today she presents to review Chest CT results. She reports dyspnea on exertion has improved with supplemental oxygen. She continue to report dry cough and wheezing, however improved after recent prednisone. She has been using albuterol MDI/neb frequently with moderate effect. At the last visit, an order for overnight oximetry was entered however has yet to be performed. FOR[facility]LY [facility] Medical History Sessile serrated polyp of colon Abdominal pain Morbid obesity due to excess calories Physical exam Obesity (BMI 30-39.9) Osteoarthritis of right ankle Allergic rhinitis GERD (gastroesophageal reflux disease) Asthma Rheumatoid arthritis Surgical History History of esophagogastroduodenoscopy (EGD) H/O colonoscopy Hx laparoscopic cholecystectomy (~09/2018) History of total left hip arthroplasty Hx of tubal ligation H/O section Hx of laparoscopic gastric banding Family History Father Diabetes mellitus Hypertension Maternal Aunt Breast cancer Mother CAD (coronary artery disease) Diabetes mellitus Sister No problems noted. Brother No problems noted. Brother No problems noted. Brother No problems noted. Son No problems noted. Daughter Hypertension Asthma Daughter Obesity ADHD Social History (Reviewed 04/25/24 @ 15:27 by MELBA Ashby Housing: House Alcohol intake: current Alcohol intake frequency: holidays/special occasions only Alcohol type: beer, wine and hard liquor Patient Tobacco Use Status: Never used Tobacco e-Cigarette/Vaping Use: Never Used Second Hand Smoke Exposure: Yes service: No Current occupational status: disabled Cognitive needs: No Hearing needs: No Vision needs: Yes Female Reproductive History Menstrual Age of Menarche: 11 Review of Systems Const Denies chills, Denies excessive sweating, Denies fever(s), Denies headache(s) and Denies night sweats Eyes Denies dry eyes, Denies irritation and Denies itchy eyes ENT Reports Normal hearing present, Denies headache(s), Denies nasal congestion, Denies nasal discharge, Denies post nasal drip and Denies sore throat Card Denies chest pain, Denies chest pain at rest, Denies chest pain with activity, Denies claudication, Denies leg edema, Denies orthopnea and Denies paroxysmal nocturnal dyspnea Resp Denies chest congestion, Denies excessive phlegm production, Denies pain on inspiration, Denies pain with cough and Denies stridor Musc Denies myalgias Neuro Reports Normal hearing present and Denies headache(s) Endo Denies excessive sweating Abe/Lymph Denies lymphadenopathy Aller/Immun Denies itchy eyes and Denies seasonal rhinorrhea Physical Exam Vital Signs: Last Vital Signs Pulse 72 04/25/24 15:23 BP 126/84 04/25/24 15:23 Pulse Ox 98 04/25/24 15:23 Oxygen Delivery Method Nasal Cannula 04/25/24 15:23 Oxygen Flow Rate 1 04/25/24 15:23 BMI result Body Mass Index 36.4 Const General: cooperative, healthy appearing, comfortable, no acute distress, well developed and alert Nutritional Appearance: obese Orientation/consciousness: patient oriented x3 Limitations: no limitations HEENT Head: Yes normal to inspection, Yes normocephalic and Yes atraumatic Ears: hearing grossly normal bilaterally and external ears normal Eyes General: appearance normal, both eyes and all related structures Eyelids: Yes eyelids normal Sclerae: sclerae normal EOM: EOMs intact bilaterally Neck Neck: Yes normal visual inspection and Yes no lymphadenopathy Lymphatic: no lymphadenopathy noted Chest Chest palpation & inspection: normal inspection of the chest Resp Effort & Inspection: normal respiratory effort, able to speak in complete sentences, no audible wheezes, no cough, no stridor, not tachypneic, no tripod positioning and no use of accessory muscles Auscultation: diminished lung sounds (bases) and rub present (bilateral upper lobes) Cardio Jugular venous distension: no JVD Rate: regular rate Rhythm: regular rhythm Skin Other: warm, dry General skin exam: no rashes or lesions noted Neuro General: patient oriented x3 Cranial nerves: Yes Normal hearing present Cognition (Neuro): normal cognition Gait exam (Neuro): Normal gait present Extrem General: Yes normal to inspection, Yes capillary refill normal, Yes no clubbing, cyanosis or edema and Yes no pedal edema Psych Appearance: grossly normal and well kempt Speech and movement: Normal speech and movement present and Clear speech present Affect: normal affect Attitude: cooperative Thought process: Normal thought process present Thought content: Normal thought content present Insight: Good insight present (Psych) Judgement: Good judgement present (Psych) Results Reviewed Results Reviewed: [place] [address] CT Scan Report Signed Patient: Lesley Campbell MR#: [id number] : 1975 Acct:[id number] Age/Sex: 48 / F ADM Date: 04/15/24 Loc: HO.CT Attending Dr: Nydia Gillespie NP Ordering Physician: Nydia Gillespie NP Date of Service: 04/15/24 Procedure(s): CT chest wo IV con Accession Number(s): [id number] cc: Emerald Perkins MD; Nydia Gillespie NP~ EXAMINATION: CT CHEST WITHOUT CONTRAST CLINICAL INFORMATION: Hypoxemia. COMPARISON: Most recent chest radiograph dated 10/01/2021. TECHNIQUE: Multidetector volumetric CT imaging of the chest was done. Axial MIP volume rendering provided. Sagittal and coronal reformatted images were obtained. This CT examination was performed using dose optimization techniques as appropriate, variously including the following: *Automated exposure control *Adjustment of mA and/or kV according to patient size (this includes techniques or standardized protocols for targeted exams where dose is matched to indication/reason for exam; i.e. extremities or head) *Use of iterative reconstruction technique DLP: 371 mGy-cm FINDINGS: ELECTRONIC DRAFTER: Unremarkable. LUNGS: There is scattered geographic ground-glass density within the lung parenchyma with additional areas of normal parenchymal density. Findings are consistent with a pattern of crazy paving. Findings are nonspecific and could represent a mild infectious or inflammatory process. No confluent airspace consolidation. Within the right upper lobe in the perihilar region and adjacent to the pulmonary vessels, there is a soft tissue nodule measuring 0.5 x 0.3 cm (axial image 218/531). Left upper lobe 0.2 cm pulmonary nodule (axial image 229/531). No large pulmonary mass. The central airways are patent. MEDIASTINUM: No cardiomegaly. No pericardial effusion. No thoracic aortic dilatation. Dilatation of the central pulmonary artery measuring up to 3.5 cm in ML dimension which could indicate elevated pulmonary artery pressures. Subcentimeter superior mediastinal lymph nodes. No significant lymphadenopathy. Unremarkable thyroid. CORONARY ARTERY CALCIFICATION: None visualized on this study. PLEURA: There is no pleural effusion. No pleural mass or thickening. AXILLA: No lymphadenopathy. UPPER ABDOMEN: Hypoattenuation of the hepatic parenchyma consistent with steatosis. Small superior right hepatic lobe parenchymal calcifications. No ductal dilatation. Status post cholecystectomy. Lap-band in appropriate position. Small calcification within the right adrenal gland without significant nodularity. Findings are benign and no follow-up imaging is recommended. OSSEOUS STRUCTURES: Unremarkable. CT/CT chest wo IV con IMPRESSION: 1. Geographic groundglass densities with additional areas of abnormal parenchymal density throughout the lung. Findings are nonspecific and could represent a mild infectious or inflammatory process. No confluent airspace consolidation. 2. Dilatation of the central pulmonary artery which could indicate pulmonary hypertension. 3. Right upper lobe perihilar 0.5 cm pulmonary nodule. Left upper lobe 0.2 cm pulmonary nodule. According to the UPDATED 2017 Fleischner Society recommendations, the advised follow-up imaging for nodules <6mm in the upper lobes is not necessarily required in low-risk patients. In high-risk patients with a nodule in the upper lobe and/or demonstrating suspicious morphology, an optional CT follow-up at 12 months may be obtained. If stable at 12 months, no further follow-up is recommended. 4. Hepatic steatosis. Fleischner guidelines were followed. 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 Reviewed chest CT results which revealed geographic groundglass densities with additional areas of abnormal parenchymal density throughout the lung. Findings are nonspecific and could represent a mild infectious or inflammatory process, suspicious of fluid, will trial lasix and perform 6MWT at next visit. There was note of dilatation of the central pulmonary artery which could indicate pulmonary hypertension. Prior echo 2022 noted tricuspid regurgitation envelope inadequate for calculation of right ventricular systolic pressure. Will repeat echo to assess for increased RVSP. There were also noted right upper lobe perihilar 0.5 cm and left upper lobe 0.2 cm pulmonary nodule. Will repeat chest CT in 3 months to assess for improvements. All questions were answered and patient is in agreement of plan. Will follow up in 6 weeks or sooner if needed. Orders: Orders CA echo transthoracic complete Today R06.00 - Dyspnea, unspecified CT chest wo IV con 3 Months R91.8 - Other nonspecific abnormal finding of lung field, R93.89 - Abnormal findings on diagnostic imaging of other specified body structures Medications: New furosemide (Lasix) 20 mg PO Q OTHER DAY 30 tabs 0RF Coding Level of Care Code Est Pt Level 4 (90697) Diagnoses Asthma J45.909 Rheumatoid arthritis M06.9 Hypoxia R09.02
[2024-04-25 15:23] VITALS: BP 126/84; PULSE 72; O2SAT 98; BMI 36.4
== END 2024-04-25 15:47 | disposition home or self-care (01) ==
PROVIDERS: PCP Internal Medicine; Visit Provider Nurse Practitioner Family
DX: J45.909 Unspecified asthma, uncomplicated (principal); M06.9 Rheumatoid arthritis, unspecified; R09.02 Hypoxemia
CPT/HCPCS: 99214

== ENCOUNTER → 2024-04-25 15:18 | Outpatient (BNVA) | payer OTHER, SELFPAY | PROVIDERS: PCP Internal Medicine; Visit Provider Nurse Practitioner Family | DX: J45.909 Unspecified asthma, uncomplicated (principal); R91.8 Other nonspecific abnormal finding of lung field; R09.02 Hypoxemia; M06.9 Rheumatoid arthritis, unspecified; R39.89 Other symptoms and signs involving the genitourinary system; Z99.81 Dependence on supplemental oxygen | CPT/HCPCS: 99212 ==

== ENCOUNTER → 2024-05-20 10:02 | Outpatient (REF) | payer OTHER, SELFPAY ==
--- NOTE | 2024-05-20 10:04 | CA_ITS ---
Transthoracic Echocardiogram Patient (Last, First, Middle): Lesley Campbell, Gender: Female Date of : 1975 Age: 48 Procedure Date: 05/20/2024 Procedure Type: Transthoracic Echocardiogram Location: OP Height: 152.4 cm Weight: 84.37 kg BSA: 1.81 m2 Heart Rate: 69 bpm BP: 126 / 84 mmHg Sample Distributor: DOROTA Referring MD: Nydia Gillespie NP Symptoms: R06.00 - Dyspnea, unspecified Study Quality: Adequate ECG Rhythm: Sinus Conclusions: - The left ventricular systolic function is normal. The calculated ejection fraction is 61% by biplane method. - No obvious valvular pathology seen on this study. - There is no evidence of pulmonary hypertension. Findings Left Ventricle Normal left ventricular cavity size. There is normal left ventricular wall thickness. The left ventricular systolic function is normal. The calculated ejection fraction is 61% by biplane method. There is no evidence of regional wall motion abnormalities. Diastolic function is normal for age. Right Ventricle Normal right ventricular cavity size. There is mildly decreased right ventricular systolic function. Atria Both atria are normal in size. Aortic Valve There is a normal trileaflet aortic valve. There is no aortic valve stenosis. There is no aortic valve regurgitation. Mitral Valve The mitral valve appears normal. There is trace mitral valve regurgitation. There is no mitral valve stenosis. Pulmonic Valve The pulmonic valve is likely normal. Tricuspid Valve There is no tricuspid valve regurgitation. There is no evidence of pulmonary hypertension. Great Vessels The asc aorta is normal in size. Venous The inferior vena cava was not well visualized. Pericardium/Pleural There is no evidence of pericardial effusion. Prior Study Comparison No significant change compared to prior study dated: 06/23/2022. Recommendations, Care & Conclusions No obvious valvular pathology seen on this study. Measurements 2D Linear Measurements IVSd: 0.82 0.6-0.9/0.6-1.0 cm LVIDd: 5.03 3.9-5.3/4.2-5.9 cm LVIDd Index: 2.78 2.4-3.2/2.2-3.1 cm/m2 LVIDs: 3.06 2.0-3.6 cm LVPWd: 0.65 0.7-1.1 cm LA Diam: 2.70 2.7-3.8/3.0-4.0 cm LAIDs Index: 1.49 1.5-2.3 cm/m2 LV Mass: 153.65 67-162/88-224 g LV Mass Index: 84.89 43-95/49-115 g/m2 LVOT Diam: 2.10 3.0+(-)1.3 cm 2D Systolic Function EF 4C: 57.30 >55% EF 2C: 64.00 >55% EF BiP: 60.90 >55% Mitral Valve MV Pk E: 0.50 MV PK A: 0.58 MV Decel Time: 236.00 E/A: 0.90 E'Lateral: 7.94 E'Medial: 6.53 E/E' Med: 7.60 E/E' Lat: 6.30 PHT: 69.00 MVA PHT: 3.19 Decel [place]: 2.10 Aortic Valve AoV Pk Peter: 1.17 AoV Pk Grad: 5.00 JOAQUIN: 2.62 LVOT LVOT Pk Peter: 0.85 LVOT Mn Peter: 0.57 LVOT VTI: 0.17 LVOT Pk Grad: 3.00 LVOT Mn Grad: 1.00 LVOT Diam: 2.10 LVOT Area: 3.46 Diastolic Function MV Pk E: 0.50 MV Pk A: 0.58 E/A: 0.90 E'Medial: 6.53 E/E' Med: 7.60 E' Laterial: 7.94 E/E' Lat: 6.30 Right Ventricle TAPSE (mm): 16.10 TVS' Peter: 9.46 Tricuspid Valve RA Press: 3.00 Great Vessels Aorta Sinus of Valsalva: 3.40 2.0-3.5 cm Ao Asc: 3.10 2.1-3.4 cm Ao Arch: 2.70 Pulmonary Veins Pulm Vein S/D 1.80 Pulmonary Valve PV Pk Peter: 0.57 Peak PV Grad: 1.00 Updated in Other Vendor System with Status of Final Mina Yi MD electronically signed on 05/21/2024 3:46:38 PM with status of Final
== END ==
LOC: HO.CARD 10:02
PROVIDERS: PCP Internal Medicine; Visit Provider Nurse Practitioner Family
DX: R06.00 Dyspnea, unspecified (principal)
CPT/HCPCS: 93306

== ENCOUNTER → 2024-05-20 10:04 | Outpatient (BNV) | payer OTHER, SELFPAY | PROVIDERS: PCP Internal Medicine; Visit Provider Internal Medicine | DX: R06.00 Dyspnea, unspecified (principal) | CPT/HCPCS: 93306 ==

== ENCOUNTER 2024-06-06 14:20 | Outpatient (AMB) | payer OTHER, SELFPAY ==
[2024-06-06 14:27] VITALS: BP 130/86; PULSE 92; O2SAT 97; BMI 36.2
--- NOTE | 2024-06-06 14:27 | A.OFFVIS_ITS ---
Vital Signs 06/06/24 14:27 Height 5 ft Weight 185 lb 3.013 oz BMI 36.2 BP 130/86 Blood Pressure Location Rt brachial Position Sitting Pulse 92 Pulse Source Pulse Oximeter Pulse Oximetry (%) 97 Oxygen Delivery Method Nasal Cannula Oxygen Flow Rate 1 Intake Visit Reasons: Asthma Allergies No Known Allergies Allergy (Verified 06/29/24 08:06) HPI HPI Asthma: Details: Lesley is a pleasant 48 year old female, never smoker, with underlying asthma, GERD and RA on plaquenil under the care of [facility]. She was admitted in July 2023 for acute respiratory failure secondary to influenza A requiring prolonged high flow. She has been maintained on supplemental oxygen 1L with exertion and symbicort was increased to 160mcg. She has been evaluated by rheumatology who d/c leflunomide, as initially thought she may have component of medication induced ILD. PFT revealed moderate restrictive defect with decreased TLC and DLCO suggestive of ILD. Reviewed chest CT with Dr. Kilpatrick, thought to have a fluid component trialed on lasix, however no respiratory improvements. She reports dyspnea on exertion has improved with supplemental oxygen however continues to desaturate on room air with associated dry cough. Of note, rheumatology did start plaquenil today to see if this would have improvements on lung involvement. [facility] Medical History (Updated 06/29/24 @ 08:15 by Arthur Foy MD) Migraines Sessile serrated polyp of colon Abdominal pain Morbid obesity due to excess calories Physical exam Obesity (BMI 30-39.9) Osteoarthritis of right ankle Allergic rhinitis GERD (gastroesophageal reflux disease) Asthma Rheumatoid arthritis Surgical History History of esophagogastroduodenoscopy (EGD) H/O colonoscopy Hx laparoscopic cholecystectomy (~09/2018) History of total left hip arthroplasty Hx of tubal ligation H/O section Hx of laparoscopic gastric banding Family History Father Diabetes mellitus Hypertension Maternal Aunt Breast cancer Mother CAD (coronary artery disease) Diabetes mellitus Sister No problems noted. Brother No problems noted. Brother No problems noted. Brother No problems noted. Son No problems noted. Daughter Hypertension Asthma Daughter Obesity ADHD Social History Housing: House Alcohol intake: current Alcohol intake frequency: holidays/special occasions only Alcohol type: beer, wine and hard liquor Patient Tobacco Use Status: Never used Tobacco e-Cigarette/Vaping Use: Never Used Second Hand Smoke Exposure: Yes service: No Current occupational status: disabled Cognitive needs: No Hearing needs: No Vision needs: Yes Female Reproductive History Menstrual Age of Menarche: 11 Review of Systems Const Denies chills, Denies excessive sweating, Denies fever(s), Denies headache(s) and Denies night sweats Eyes Denies dry eyes, Denies irritation and Denies itchy eyes ENT Reports Normal hearing present and Denies headache(s) Card Denies chest pain, Denies chest pain at rest, Denies chest pain with activity, Denies claudication, Denies leg edema, Reports dyspnea on exertion, Denies orthopnea and Denies paroxysmal nocturnal dyspnea Resp Denies chest congestion, Denies excessive phlegm production, Denies pain on inspiration, Denies pain with cough, Reports dyspnea on exertion and Denies stridor Musc Denies myalgias Neuro Reports Normal hearing present and Denies headache(s) Endo Denies excessive sweating Abe/Lymph Denies lymphadenopathy Aller/Immun Denies itchy eyes and Denies seasonal rhinorrhea Physical Exam Vital Signs: Last Vital Signs Pulse 92 06/06/24 14:27 BP 130/86 06/06/24 14:27 Pulse Ox 97 06/06/24 14:27 Oxygen Delivery Method Nasal Cannula 06/06/24 14:27 Oxygen Flow Rate 1 06/06/24 14:27 BMI result Body Mass Index 36.2 Const General: cooperative, healthy appearing, comfortable, no acute distress, well developed and alert Nutritional Appearance: obese Orientation/consciousness: patient oriented x3 Limitations: no limitations HEENT Head: Yes normal to inspection, Yes normocephalic and Yes atraumatic Ears: hearing grossly normal bilaterally and external ears normal Eyes General: appearance normal, both eyes and all related structures Eyelids: Yes eyelids normal Sclerae: sclerae normal EOM: EOMs intact bilaterally Neck Neck: Yes normal visual inspection and Yes no lymphadenopathy Lymphatic: no lymphadenopathy noted Chest Chest palpation & inspection: normal inspection of the chest Resp Effort & Inspection: normal respiratory effort, able to speak in complete sentences, no audible wheezes, no cough, no stridor, not tachypneic, no tripod positioning and no use of accessory muscles Auscultation: diminished lung sounds (bases) and rub present (bilateral upper lobes) Cardio Jugular venous distension: no JVD Rate: regular rate Rhythm: regular rhythm Skin Other: warm, dry General skin exam: no rashes or lesions noted Neuro General: patient oriented x3 Cranial nerves: Yes Normal hearing present Cognition (Neuro): normal cognition Gait exam (Neuro): Normal gait present Extrem General: Yes normal to inspection, Yes capillary refill normal, Yes no clubbing, cyanosis or edema and Yes no pedal edema Psych Appearance: grossly normal and well kempt Speech and movement: Normal speech and movement present and Clear speech present Affect: normal affect Attitude: cooperative Thought process: Normal thought process present Thought content: Normal thought content present Insight: Good insight present (Psych) Judgement: Good judgement present (Psych) Assessment & Plan Assessment & Plan (1) Asthma: Code(s): J45.909 - Unspecified asthma, uncomplicated Category: Medical (2) Rheumatoid arthritis: Code(s): M06.9 - Rheumatoid arthritis, unspecified Category: Medical (3) Hypoxia: Code(s): R09.02 - Hypoxemia Category: Medical Plan At this time, advised to continue Symbicort and supplemental oxygen 1L with exertion. Reviewed chest CT results which revealed geographic groundglass densities with additional areas of abnormal parenchymal density throughout the lung. Findings are nonspecific and could represent a mild infectious or inflammatory process, suspicious of fluid, lasix trialed however not effective. Will send in prednisone in addition to newly starting plaquenil from rheumatology and repeat chest CT. It is likely this is an evolving ILD related to leflunomide. All questions were answered and patient is in agreement of plan. Will follow up in 6 weeks or sooner if needed. Medications: New prednisone see taper instructions Take 4 pills daily for 7 days, then go down by 1 pill every 7 days; 28 days 70 tabs 0RF 10 mg PO DIRECTED 70 tabs 0RF Coding Level of Care Code Est Pt Level 4 (02208) Diagnoses Asthma J45.909 Rheumatoid arthritis M06.9 Hypoxia R09.02
--- OUTSIDE RECORDS SUMMARY | 2024-06-06 18:50 | XMS_ITS | Clinical Summary ---
Author Organization [facility] ity Address [address] [place] [address] Care Team Providers Care Vending Machine Assembler Name Role Phone Unavailable Primary Care Provider Unavailabl e Social History Tobacco Use Types Packs/Day Years Used Date Smoking Tobacco: Never Assessed Sex and Gender Information Value Date Recorded Sex Assigned at Not on file Gender Identity Not on file Sexual Orientation Not on file Plan of Treatment Health Maintenance Due Date Last Done Comments Breast Cancer Screening 1975 DTaP,Tdap,and Td Vaccines (1 - Tdap) 1993 Hepatitis B Vaccines (1 of 3 - 19+ 3-dose series) 1993 Cervical Cancer Screening: P ap Smear 1995 COVID-19 Vaccine (2023-2 5 season) 2024 Influenza Vaccine (#1) 2024 HIB Vaccines Aged Out No longer eligi ble based on patient's age to complete this topic HPV Vaccines Aged Out No longer eligi ble based on patient's age to complete this topic Hepatitis A Vaccines Aged Out No long er eligible based on patient's age to complete this topic IPV Vaccines Aged Out No longer eligi ble based on patient's age to complete this topic MMR Vaccines Aged Out No longer eligi ble based on patient's age to complete this topic Meningococcal ACWY Vaccine Aged Out N o longer eligible based on patient's age to complete this topic Pneumococcal Vaccine: Pediat rics (0 to 5 Years) and At-Risk Patients (6 to 64 Years) Aged Out No longer eligible b ased on patient's age to complete this topic RSV Immunization Patients Un westley 20 months Aged Out No longer eligible b ased on patient's age to complete this topic Varicella Vaccines Aged Out No longer eligible based on patient's age to complete this topic
== END 2024-06-06 15:01 | disposition home or self-care (01) ==
PROVIDERS: PCP Internal Medicine; Visit Provider Nurse Practitioner Family
DX: J45.909 Unspecified asthma, uncomplicated (principal); M06.9 Rheumatoid arthritis, unspecified; R09.02 Hypoxemia
CPT/HCPCS: 99214

== ENCOUNTER → 2024-06-06 14:20 | Outpatient (BNVA) | payer OTHER, SELFPAY | PROVIDERS: PCP Internal Medicine; Visit Provider Nurse Practitioner Family | DX: J45.909 Unspecified asthma, uncomplicated (principal); R09.02 Hypoxemia; M06.9 Rheumatoid arthritis, unspecified | CPT/HCPCS: 99212 ==

== ENCOUNTER → 2024-06-14 11:09 | Outpatient (BNVA) | payer OTHER, SELFPAY | PROVIDERS: PCP Internal Medicine; Visit Provider Nurse Practitioner Family | DX: J45.40 Moderate persistent asthma, uncomplicated (principal); K59.04 Chronic idiopathic constipation; K21.9 Gastro-esophageal reflux disease without esophagitis; R10.84 Generalized abdominal pain; R14.0 Abdominal distension (gaseous); R10.13 Epigastric pain; Z98.84 Bariatric surgery status | CPT/HCPCS: 99212 ==

== ENCOUNTER → 2024-06-16 09:56 | Outpatient (BNV) | payer OTHER, SELFPAY | PROVIDERS: PCP Internal Medicine; Visit Provider Radiology Diagnostic Radiology | DX: K21.9 Gastro-esophageal reflux disease without esophagitis (principal) | CPT/HCPCS: 74246; 74248 ==

== ENCOUNTER → 2024-06-20 09:14 | Outpatient (BNVA) | payer OTHER, SELFPAY | PROVIDERS: PCP Internal Medicine; Visit Provider Surgery ==

== ENCOUNTER 2024-06-29 08:03 | Outpatient (AMB) | payer OTHER, SELFPAY ==
--- NOTE | 2024-06-29 08:06 | MHC.OFFVISWM ---
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 BMI 34.1 Allergies No Known Allergies Allergy (Verified 06/29/24 08:06) Medication List - Last Reconciled 06/29/24 by Arthur Foy MD albuterol sulfate 2.5 mg (3 mL) inhalation Q4-6H PRN albuterol sulfate 90 mcg/actuation (Ventolin HFA) 2 puffs inhalation Q6H PRN 30 days bisacodyl (Dulcolax (bisacodyl)) 10 mg (2 x 5 mg) PO BEDTIME budesonide-formoterol 160-4.5 mcg/actuation (Symbicort) 2 puffs inhalation Q12H cholecalciferol (vitamin D3) 50 mcg PO DAILY diclofenac sodium 50 mg PO BID folic acid 1 mg PO BID hydrocortisone 2.5% (Proctosol HC) 1 appl HI BID-QID PRN hydroxychloroquine 200 mg PO BID meloxicam 15 mg PO DAILY montelukast 10 mg PO DAILY omeprazole 40 mg PO DAILY prednisone 10 mg PO DIRECTED prednisone 10 mg PO DIRECTED sucralfate 1 g PO BEDTIME sumatriptan succinate 25 mg PO Q2-4H PRN 30 days HPI 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 Also complains of vomiting 3-4/week and GERD Previous weight loss efforts: Lap band 2009 (preop weight: 250lbs, lost 75lbs) Wakes up: 7am, Sleeps: 10pm Breakfast: 8am (Fairlife) Lunch: 12pm (salad, chicken, tuna) Dinner: 5pm (same as lunch) Snacks: 7-8pm (Eritrean yogurt) Exercise: has a treadmill at home Fluids: Coffee: (1 cup day with creamer), Tea: none, soda: none, juice: none, ETOH: none Reviewed extensive record: 1) Op report from 2009: Realize band 2) EGD (06/03: no erosion or significant esophagitis) 3) UGI (07/05: no band prolapse/obstruction/GERD 4) CT chest: (06/04: no esophageal dilation, groundglass lung appearance 5) Echo: 06/04: no pulm HTN, normal 6) Colonoscopy: diverticulosis PFSH Medical History (Updated 06/29/24 @ 08:15 by Arthur Foy MD) Migraines Sessile serrated polyp of colon Abdominal pain Morbid obesity due to excess calories Physical exam Obesity (BMI 30-39.9) Osteoarthritis of right ankle Allergic rhinitis GERD (gastroesophageal reflux disease) Asthma Rheumatoid arthritis Surgical History History of esophagogastroduodenoscopy (EGD) H/O colonoscopy Hx laparoscopic cholecystectomy (~09/2018) History of total left hip arthroplasty Hx of tubal ligation H/O section Hx of laparoscopic gastric banding Family History Father Diabetes mellitus Hypertension Maternal Aunt Breast cancer Mother CAD (coronary artery disease) Diabetes mellitus Sister No problems noted. Brother No problems noted. Brother No problems noted. Brother No problems noted. Son No problems noted. Daughter Hypertension Asthma Daughter Obesity ADHD Social History Housing: House Alcohol intake: current Alcohol intake frequency: holidays/special occasions only Alcohol type: beer, wine and hard liquor Patient Tobacco Use Status: Never used Tobacco e-Cigarette/Vaping Use: Never Used Second Hand Smoke Exposure: Yes service: No Current occupational status: disabled Cognitive needs: No Hearing needs: No Vision needs: Yes Female Reproductive History Menstrual Age of Menarche: 11 Telehealth Telehealth Telehealth Platform: Telephone Location of provider rendering services: practice address Location of patient: address on file Patient Identification confirmed using: Name, : Yes Telehealth method: voice only Patient verbally consented to treatment: Yes Patient verbally consented to billing insurance company: Yes Patient informed of any privacy concerns related to visit: Yes Minutes spent on Phone/Video with Pt.: 60 Assessment & Plan Assessment & Plan (1) Obesity (BMI 30-39.9): Code(s): E66.9 - Obesity, unspecified Category: Medical Plan: 1) In view of the fact she is using oral steroids, is on home O2 and the band is in good position and does not appear to cause any structural damage, I would like to leave it in place for now providing the patient a meal plan to see how her symptoms improve and is able to lose further weight loss. 2. Nutritional counseling. Start with one Fairlife shake (mix 4ox of Fairlife with 4oz low fat unsweetended almond milk) at 8am-10am, 1 protein bar (CELEBRATE protein bars, buy at hospital[facility] gift [facility]) at 11am-1pm, one Fairlife shake (mix 4ox of Fairlife with 4oz low fat unsweetended almond milk) at 2pm-4pm, dinner at 5pm (4 forks of protein and 4 forks of salad/vegetables) AND one more Celebrate protein bar after dinner at 7pm-9pm. So you do 2 protein shakes, 2 protein bars and one meal per day. Meal to include lean meat (beef, fish, pork, turkey, chicken), or bulgarian yogurt, or egg whites, or beans with a salad with olive oil and fruits (berries, pears, apples, kiwi). Avoid salt, breads, potatoes, rice, pasta, desserts. 3. Each shake would be drunk slowly, like coffee in a period of 2 hours. 4. Cut each bar in 4 pieces and eat each piece in 30min ?to make each bar last 2 hours. 5. I emphasized the importance of measuring accurately the food portion and measure it when serving the food in plate 6. The meal portions include 4 full-size forks of meat and 4 full-size forks of salad. You always eat the meat portion but you can replace up to 4 forks for salad/vegetables with rice, potatoes or pasta, or a fruit ?if you like. The less you do it the better weight loss will be. 7. One full-size fork is what it can be scooped on the fork without falling aside and not what can be bit with the fork. Use regular forks like those you find in a typical restaurant. 8.? Please buy the body composition scale we discussed and send me weight measurements as soon as possible and then once a week. Always include your diet and exercise plan. 9. Start treadmill with an incline of 0.0 and speed of 2.0. Increase incline by 1 every 3 min to a max incline of 8.0, stay 3min at 6.0 and then return to 0.0 and repeat same steps until calorie goal is met. Goal is to burn 2000 calories per week on exercise, which means either 300 calories daily. 10. Goal is to lose at least 1.5-2lbs per week 11. Goal to lose at least 10% of your weight, which is about 18lbs. Minimum weight goal: 157lbs before surgery
--- OUTSIDE RECORDS SUMMARY | 2024-06-29 08:10 | XMS_ITS | Clinical Summary ---
[facility] Organization [facility] Address [address] [place] [address] Care Team Providers Care Tooling Supervisor Name Role Phone Unavailable Primary Care Provider Unavailabl e Social History Tobacco Use Types Packs/Day Years Used Date Smoking Tobacco: Never Assessed Comments Unknown Sex and Gender Information Value Date Recorded Sex Assigned at Not on file Legal Sex Female 4:53 AM EST Gender Identity Not on file Sexual Orientation [...] patient's age to complete this topic Meningococcal B Vacine Aged Out No lo nger eligible based on patient's age to complete [...]
== END 2024-06-29 09:37 | disposition home or self-care (01) ==
LOC: HO.HBS 08:03
PROVIDERS: PCP Internal Medicine; Visit Provider Surgery
DX: E66.9 Obesity, unspecified (principal); E66.812 Obesity, class 2; Z68.35 Body mass index [BMI] 35.0-35.9, adult
CPT/HCPCS: 99205

== ENCOUNTER → 2024-06-29 08:03 | Outpatient (BNVA) | payer OTHER, SELFPAY | PROVIDERS: PCP Internal Medicine; Visit Provider Surgery ==

== ENCOUNTER 2024-07-25 09:08 | Outpatient (REF) | payer OTHER, SELFPAY ==
--- NOTE | ~2024-07-25 | CT_ITS ---
CLINICAL HISTORY: R91.8 - Other nonspecific abnormal finding of lung field CT chest without contrast Comparison: 04/15/2024 Findings: The heart size is normal. Borderline to mild circumferential wall thickening of the distal thoracic esophagus (small fluid level is seen at this level) may be due to GE reflux +/-esophagitis. Improved/resolved previously noted bilateral hazy lung opacities. Mild attenuation of the lungs likely due to small airway disease. No lung nodule (previously noted two small lung nodules have resolved). Cholecystectomy and gastric band surgery are redemonstrated. Small hepatic calcified granuloma. Hepatic steatosis. Focal small dystrophic right adrenal gland calcification. Minimal left renal scarring. The bones are intact. IMPRESSION: No lung nodule (previously noted two small lung nodules have resolved). This document has been electronically signed by: Latha Burger MD on 07/26/2024 13:30:04
--- OUTSIDE RECORDS SUMMARY | 2024-07-25 09:41 | XMS_ITS | Clinical Summary ---
Author Organization [facility] ity Address [address] [place] [address] Care Team Providers Care Truck Body Repairer Name Role Phone Unavailable Primary Care Provider [...] Screening: P ap Smear 1995 COVID-19 Vaccine ( - 2023-2 5 season) 2024 Influenza Vaccine (#1) 2024 Pneumococcal Vaccine: 50+ Ye ars (1 of 1 - PCV) 2024 Zoster Vaccines (1 of 2) 2024 HIB Vaccines Aged Out No longer [...]
== END 2024-07-25 09:09 | disposition home or self-care (01) ==
LOC: HO.CT 09:08
PROVIDERS: PCP Internal Medicine; Visit Provider Nurse Practitioner Family
DX: R93.89 Abnormal findings on diagnostic imaging of other specified body structures (principal); R91.8 Other nonspecific abnormal finding of lung field
CPT/HCPCS: 71250

== ENCOUNTER → 2024-07-25 09:10 | Outpatient (BNV) | payer OTHER, SELFPAY | PROVIDERS: PCP Internal Medicine; Visit Provider Radiology Diagnostic Radiology | DX: R91.8 Other nonspecific abnormal finding of lung field (principal) | CPT/HCPCS: 71250 ==

== ENCOUNTER 2024-08-01 10:58 | Outpatient (AMB) | payer OTHER, SELFPAY ==
--- NOTE | 2024-08-01 11:05 | MHC.OFFVIS ---
Vital Signs 08/01/24 11:06 Height 5 ft Weight 177 lb 7.554 oz BMI 34.7 BP 106/62 Blood Pressure Location Lt brachial Position Sitting Pulse 92 Pulse Source Pulse Oximeter Pulse Oximetry (%) 98 Oxygen Delivery Method Nasal Cannula Oxygen Flow Rate 1 Intake Visit Reasons: Asthma Allergies No Known Allergies Allergy (Verified 08/01/24 11:09) Medication List - Last Reconciled 08/01/24 by Connie Masterson, SOFTWARE DESIGN MANAGER albuterol sulfate 2.5 mg (3 mL) inhalation Q4-6H PRN albuterol sulfate 90 mcg/actuation (Ventolin HFA) 2 puffs inhalation Q6H PRN 30 days bisacodyl (Dulcolax (bisacodyl)) 10 mg (2 x 5 mg) PO BEDTIME budesonide-formoterol 160-4.5 mcg/actuation (Symbicort) 2 puffs inhalation Q12H cholecalciferol (vitamin D3) 50 mcg PO DAILY diclofenac sodium 50 mg PO BID folic acid 1 mg PO BID hydrocortisone 2.5% (Proctosol HC) 1 appl [place] BID-QID PRN hydroxychloroquine 200 mg PO BID meloxicam 15 mg PO DAILY montelukast 10 mg PO DAILY omeprazole 40 mg PO DAILY prednisone 10 mg PO DIRECTED prednisone 10 mg PO DIRECTED sucralfate 1 g PO BEDTIME sumatriptan succinate 25 mg PO Q2-4H PRN 30 days HPI HPI Asthma: Details: Lesley is a pleasant 49 year old female, never smoker, with underlying asthma, GERD and RA on plaquenil under the care of [facility], previously on Leflunomide. She was admitted in July 2023 for acute respiratory failure secondary to influenza A requiring prolonged high flow. She has been maintained on supplemental oxygen 1L with exertion and symbicort was increased to 160mcg. She has been evaluated by rheumatology who d/c leflunomide, as initially thought she may have component of medication induced ILD. PFT revealed moderate restrictive defect with decreased TLC and DLCO suggestive of ILD. Reviewed chest CT with Dr. Kilpatrick, thought to have a fluid component trialed on lasix, however no respiratory improvements. She reports dyspnea on exertion has improved with supplemental oxygen however continues to desaturate on room air with associated dry cough. At the last visit, she was trialed on prednisone with significant improvement in symptoms and presents today to review chest CT results. She denies any visits to urgent care or hospitalizations related to respiratory distress since the last visit. [facility] Medical History (Updated 06/29/24 @ 08:15 by Arthur Foy MD) Migraines Sessile serrated polyp of colon Abdominal pain Morbid obesity due to excess calories Physical exam Obesity (BMI 30-39.9) Osteoarthritis of right ankle Allergic rhinitis GERD (gastroesophageal reflux disease) Asthma Rheumatoid arthritis Surgical History History of esophagogastroduodenoscopy (EGD) H/O colonoscopy Hx laparoscopic cholecystectomy (~09/2018) History of total left hip arthroplasty Hx of tubal ligation H/O section Hx of laparoscopic gastric banding Family History Father Diabetes mellitus Hypertension Maternal Aunt Breast cancer Mother CAD (coronary artery disease) Diabetes mellitus Sister No problems noted. Brother No problems noted. Brother No problems noted. Brother No problems noted. Son No problems noted. Daughter Hypertension Asthma Daughter Obesity ADHD Social History Housing: House Alcohol intake: current Alcohol intake frequency: holidays/special occasions only Alcohol type: beer, wine and hard liquor Patient Tobacco Use Status: Never used Tobacco e-Cigarette/Vaping Use: Never Used Second Hand Smoke Exposure: Yes service: No Current occupational status: disabled Cognitive needs: No Hearing needs: No Vision needs: Yes Female Reproductive History Menstrual Age of Menarche: 11 Review of Systems Const Denies chills, Denies excessive sweating, Denies fever(s), Denies headache(s) and Denies night sweats Eyes Denies dry eyes, Denies irritation and Denies itchy eyes ENT Reports Normal hearing present and Denies headache(s) Card Denies chest pain, Denies chest pain at rest, Denies chest pain with activity, Denies claudication, Denies leg edema, Reports dyspnea on exertion, Denies orthopnea and Denies paroxysmal nocturnal dyspnea Resp Denies chest congestion, Denies excessive phlegm production, Denies pain on inspiration, Denies pain with cough, Reports dyspnea on exertion and Denies stridor Musc Denies myalgias Neuro Reports Normal hearing present and Denies headache(s) Endo Denies excessive sweating Abe/Lymph Denies lymphadenopathy Aller/Immun Denies itchy eyes and Denies seasonal rhinorrhea Physical Exam Vital Signs: Last Vital Signs Pulse 92 08/01/24 11:06 BP 106/62 08/01/24 11:06 Pulse Ox 98 08/01/24 11:06 Oxygen Delivery Method Nasal Cannula 08/01/24 11:06 Oxygen Flow Rate 1 08/01/24 11:06 BMI result Body Mass Index 34.7 Const General: cooperative, healthy appearing, comfortable, no acute distress, well developed and alert Nutritional Appearance: obese Orientation/consciousness: patient oriented x3 Limitations: no limitations HEENT Head: Yes normal to inspection, Yes normocephalic and Yes atraumatic Ears: hearing grossly normal bilaterally and external ears normal Eyes General: appearance normal, both eyes and all related structures Eyelids: Yes eyelids normal Sclerae: sclerae normal EOM: EOMs intact bilaterally Neck Neck: Yes normal visual inspection and Yes no lymphadenopathy Lymphatic: no lymphadenopathy noted Chest Chest palpation & inspection: normal inspection of the chest Resp Effort & Inspection: normal respiratory effort, able to speak in complete sentences, no audible wheezes, no cough, no stridor, not tachypneic, no tripod positioning and no use of accessory muscles Auscultation: diminished lung sounds (bases) and rub present (bilateral upper lobes) Cardio Jugular venous distension: no JVD Rate: regular rate Rhythm: regular rhythm Skin Other: warm, dry General skin exam: no rashes or lesions noted Neuro General: patient oriented x3 Cranial nerves: Yes Normal hearing present Cognition (Neuro): normal cognition Gait exam (Neuro): Normal gait present Extrem General: Yes normal to inspection, Yes capillary refill normal, Yes no clubbing, cyanosis or edema and Yes no pedal edema Psych Appearance: grossly normal and well kempt Speech and movement: Normal speech and movement present and Clear speech present Affect: normal affect Attitude: cooperative Thought process: Normal thought process present Thought content: Normal thought content present Insight: Good insight present (Psych) Judgement: Good judgement present (Psych) Assessment & Plan Assessment & Plan (1) Asthma: Code(s): J45.909 - Unspecified asthma, uncomplicated Category: Medical (2) Rheumatoid arthritis: Code(s): M06.9 - Rheumatoid arthritis, unspecified Category: Medical (3) Hypoxia: Code(s): R09.02 - Hypoxemia Category: Medical (4) Interstitial lung disease: Code(s): J84.9 - Interstitial pulmonary disease, unspecified Category: Medical Plan Reviewed chest CT results which revealed improvements while on prednisone in regards to geographic groundglass densities with additional areas of abnormal parenchymal density throughout the lung. Patient also noted significant improvements in cough and dyspnea while on prednisone. Given the symptomatic improvements as well as resolving changes on chest CT, will continue prednisone for underlying ILD. Discussed importance of calcium supplements as well as informing both PCP and ophthamologist of high dose steroids, as she was borderline diabetic previously. At this time, advised to continue Symbicort and supplemental oxygen 1L with exertion. Will send for overnight oximetry to assess need for supplemental oxygen at [facility] on room air and performed 6MWT at next visit to assess continued need for supplemental oxygen. All questions were answered and patient is in agreement of plan. Will follow up in 6 weeks or sooner if needed. Orders: Orders Overnight Pulse Oximetry 08/01/24 R09.02 - Hypoxemia Medications: New prednisone 40 mg (2 x 20 mg) PO DAILY 60 tabs 1RF Refilled albuterol sulfate 90 mcg/actuation (Ventolin HFA) 2 puffs inhalation Q6H 30 days PRN 6.7 grams 1RF shortness of breath or wheezing Discontinued prednisone see taper instructions; 40 mg Daily x3 days, 30 mg daily x3 days, 20 mg daily x3 days, 10 mg daily x3 days Discontinued Reason: Patient Completed Course 10 mg PO DIRECTED 30 tabs 0RF prednisone see taper instructions Take 4 pills daily for 7 days, then go down by 1 pill every 7 days; 28 days 70 tabs 0RF Discontinued Reason: Patient Completed Course 10 mg PO DIRECTED 70 tabs 0RF Coding Level of Care Code Est Pt Level 4 (72043) Complex EM visit Add On G2211 Diagnoses Asthma J45.909 Rheumatoid arthritis M06.9 Hypoxia R09.02 Interstitial lung disease J84.9
[2024-08-01 11:06] VITALS: BP 106/62; PULSE 92; O2SAT 98; BMI 34.7
== END 2024-08-01 11:38 | disposition home or self-care (01) ==
LOC: HO.HPS 10:59
PROVIDERS: PCP Internal Medicine; Visit Provider Nurse Practitioner Family
DX: J45.909 Unspecified asthma, uncomplicated (principal); M06.9 Rheumatoid arthritis, unspecified; R09.02 Hypoxemia; J84.9 Interstitial pulmonary disease, unspecified
CPT/HCPCS: 99214; G2211

== ENCOUNTER → 2024-08-01 10:58 | Outpatient (BNVA) | payer OTHER, SELFPAY | PROVIDERS: PCP Internal Medicine; Visit Provider Nurse Practitioner Family | DX: J45.909 Unspecified asthma, uncomplicated (principal); J84.9 Interstitial pulmonary disease, unspecified; M06.9 Rheumatoid arthritis, unspecified; R09.02 Hypoxemia; Z99.81 Dependence on supplemental oxygen; Z79.899 Other long term (current) drug therapy | CPT/HCPCS: 99212 ==

== ENCOUNTER 2024-08-18 10:30 | Outpatient (AMB) | payer OTHER, SELFPAY ==
--- NOTE | 2024-08-18 10:39 | A.OFFPC_ITS ---
Vital Signs 08/18/24 10:42 Height 5 ft Weight 175 lb BMI 34.2 BP 130/86 Blood Pressure Location Lt brachial Position Sitting Pulse 83 Pulse Source Pulse Oximeter Pulse Oximetry (%) 97 Oxygen Delivery Method Nasal Cannula Intake Visit Reasons: Annual Exam Intake Note: Patient here for a physical exam Psychiatric Social Worker Supervisor Required: No Accompanied by: Daughter Allergies No Known Allergies Allergy (Verified 08/18/24 11:03) Medication List - Last Reconciled 08/18/24 by Jolynn Dsouza PA-C albuterol sulfate 2.5 mg (3 mL) inhalation Q4-6H PRN albuterol sulfate 90 mcg/actuation (Ventolin HFA) 2 puffs inhalation Q6H PRN 30 days bisacodyl (Dulcolax (bisacodyl)) 10 mg (2 x 5 mg) PO BEDTIME budesonide-formoterol 160-4.5 mcg/actuation (Symbicort) 2 puffs inhalation Q12H cholecalciferol (vitamin D3) 50 mcg PO DAILY diclofenac sodium 50 mg PO BID folic acid 1 mg PO BID hydrocortisone 2.5% (Proctosol HC) 1 appl AL BID-QID PRN hydroxychloroquine 200 mg PO BID meloxicam 15 mg PO DAILY montelukast 10 mg PO DAILY omeprazole 40 mg PO DAILY prednisone 40 mg (2 x 20 mg) PO DAILY sucralfate 1 g PO BEDTIME sumatriptan succinate 25 mg PO Q2-4H PRN 30 days Tobacco use date assessed: 08/18/24 Dental Screening Dental Screen Date: 08/18/24 Did you have a dental visit in the last 12 months?: No Did you have a dental problem in the last 6 months where you did not have access to dental care?: No Was dental information given to patient?: Patient has dentist HPI Annual Exam HPI Details History of Present Illness The patient is a 49-year-old female presenting for an annual physical examination. Patient has significant past medical history of pulmonary nodules and interstitial lung disease, which she continues to monitor with Pulmonology and is on chronic 1L NC oxygen. She reports dealing with depression related to a recent separation, placing her in the care of her daughter. The patient has undergone past hip replacement surgery in 2012 due to degenerative joint disease, impacting her daily function significantly. In regard to her GI health, she has gastroesophageal reflux disease, for which she undergoes active treatment. A past CT scan revealed suspected esophageal thickening suggestive of possible reflux or inflammation, which she is managing with medical therapy. She further reports previously elevated triglycerides and vitamin D deficiency noted last year during a full blood workup. Recent discussions around her pulmonary health included a CT scan in July, which is used to track her ongoing lung condition. Social History - The patient is currently unemployed si 2007 due to hip issues. - Lives with her daughter who provides p rimary caregiving. - Experiences difficulty with activities of daily living (ADLs) and requires assistance with tasks such as bathing and dressing. - Previous employment status was impacte d by degenerative joint disease, which required surgical intervention. [facility], [facility] Medical History (Updated 08/18/24 @ 19:02 by Jolynn Dsouza PA-C) Depression Class 1 obesity with body mass index (BMI) of 34.0 to 34.9 in adult H/O degenerative disc disease Annual physical exam Hyperlipidemia Vitamin D deficiency Migraines Sessile serrated polyp of colon Abdominal pain Morbid obesity due to excess calories Physical exam Obesity (BMI 30-39.9) Osteoarthritis of right ankle Allergic rhinitis GERD (gastroesophageal reflux disease) Asthma Rheumatoid arthritis Surgical History History of esophagogastroduodenoscopy (EGD) H/O colonoscopy (~05/15/23) Hx laparoscopic cholecystectomy (~09/2018) History of total left hip arthroplasty Hx of tubal ligation H/O section Hx of laparoscopic gastric banding Family History Father Diabetes mellitus Hypertension Maternal Aunt Breast cancer Mother CAD (coronary artery disease) Diabetes mellitus Sister No problems noted. Brother No problems noted. Brother No problems noted. Brother No problems noted. Son No problems noted. Daughter Hypertension Asthma Daughter Obesity ADHD Social History Housing: House Alcohol intake: current Alcohol intake frequency: holidays/special occasions only Alcohol type: beer, wine and hard liquor Patient Tobacco Use Status: Never used Tobacco e-Cigarette/Vaping Use: Never Used Second Hand Smoke Exposure: Yes service: No Current occupational status: disabled Cognitive needs: No Hearing needs: No Vision needs: Yes Female Reproductive History Menstrual Age of Menarche: 11 Questionnaire PHQ-9 Over the last 2 weeks, how often have you been bothered by any of the following problems? 1. Little interest or pleasure in doing things: several days 2. Feeling down, depressed, or hopeless: several days 3. Trouble falling or staying asleep, or sleeping too much: several days 4. Feeling tired or having little energy: several days 5. Poor appetite or overeating: not at all 6. Feeling bad about yourself - or that you are a failure or have let yourself or your family down: not at all 7. Trouble concentrating on things, such as reading the newspaper or watching television: not at all 8. Moving or speaking so slowly that other people could have noticed. Or the opposite - being so fidgety or restless that you have been moving around a lot more than usual: not at all 9. Thoughts that you would be better off or of hurting yourself in some way: not at all Total score: 4 Depression Screening Interpretation: Positive Depression Screening Follow-up: Community Mental Health Worker F/U (came to see patient during appointment ) Depression Screening Done: Yes 04921 - PHQ-9 Billing: Yes Source: Developed by Drs. Benito Rhodes, Angelita Vanegas, Tree Gandhi and colleagues, with an educational alexi from [employer]. Thrive Questionnaire Date Thrive assessed: 08/11/24 I am a: Patient What is your living situation today?: I have a steady place to live Within the past 12 months, did the food you bought not last and you didn't have the money to get more?: I choose not to answer this question Within the past 12 months, did you worry whether your food would run out before you got money to buy more?: I choose not to answer this question Do you have trouble paying for medicines?: No Do you have trouble getting transportation to medical appointments?: No Do you have trouble paying your heating and electricity bill?: No Do you have trouble taking care of your child, family member or friend?: No Do you have trouble with day-to-day activities such as bathing, preparing meals, shopping, managing finances, etc.?: Yes Are you currently unemployed and looking for a job?: No Are you interested in more education?: No Please select the resources that you would like help with: None Currently or been in a relationship where the following occur: No concerns reported THRIVE Score: 0 AUDIT C Alcohol Use Questionnaire (AUDIT-C) 1. How often do you have a drink containing alcohol?: Monthly or less 2. How many drinks containing alcohol do you have on a typical day when you are drinking?: 1 or 2 3. How often do you have six or more drinks on one occasion?: Never Total Score: 1 Score Reviewed/Action Taken: No VIET-7 AMB Questionnaire VIET-7 Date VIET - 7 assessed: 08/18/24 Feeling nervous, anxious, or on edge: 3 = Nearly every day Not being able to stop or control worryin = Several days Worrying too much about different things: 3 = Nearly every day Trouble relaxin = Several days Being so restless that it is hard to sit still: 0 = Not at all Becoming easily annoyed or irritable: 2 = More than half the days Feeling afraid as if something awful might happen: 1 = Several days Total VIET-7 score (0-4 normal; 5-9 mild; 10-14 moderate; 15-21 severe): 11 Source: Developed by Drs. Benito Rhodes, Angelita Vanegas, Tree Gandhi and colleagues, with an educational alexi from [employer]. VIET-7 Assessment Billing VIET-7 Assessment Tool: VIET-7 Assessment 56382 Review of Systems Const Details: ROS - Respiratory: Reports pulmonary nodules and interstitial lung disease; denies symptoms of asthma or COPD. - Gastrointestinal: Reports gastroesophageal reflux disease; denies diarrhea or constipation. - Endocrine: Denies diabetes; acknowledges monitoring of past vitamin D deficiency. - Musculoskeletal: Reports degenerative joint disease. - Psychiatric: Reports current depressive symptoms; acknowledges stress following a recent relationship separation. Physical exam (Primary Care) Vital Signs: Last Vital Signs Pulse 83 08/18/24 10:42 BP 130/86 08/18/24 10:42 Pulse Ox 97 08/18/24 10:42 Oxygen Delivery Method Nasal Cannula 08/18/24 10:42 Care Plan Goal for BP management: 130/90 at goal BMI result Body Mass Index 34.2 BMI Assessment/Plan discussion: High BMI High, discussed plan: lifestyle, weight reduction, dietary, physical activity and alcohol moderation Tobacco/Smoking Status: Tobacco use Status Tobacco use date assessed 08/18/24 08/18/24 10:47 Patient Tobacco Use Status Never used Tobacco 08/18/24 10:41 e-Cigarette/Vaping Use Never Used 08/18/24 10:41 PHQ-9: PHQ-9 Score PHQ-9: Total score 4 08/18/24 13:09 Depression Screening Interpretation: Positive Depression Screening Follow-up: Community Mental Health Worker F/U (came to see patient during appointment ) Thrive Assessment: Date of Thrive Assessment Date Thrive assessed 08/11/24 08/18/24 10:41 Currently or been in a relationship where the following occur: No concerns reported Const Other: Appearance: Alert. Oriented X3. No acute distress. Head: Normal external exam. Normocephalic. Atraumatic. Eyes: Pupils are equal, round, and reactive to light. Extraocular movements intact. Conjunctiva and sclera normal. Eyelids normal. Ears: External auditory canal normal. Tympanic membranes normal. Throat: Pharynx normal. Uvula midline. Moist mucous membranes. Neck: Normal inspection. Neck supple. Full range of motion. Cardiovascular: Normal heart rate and rhythm. Heart sound normal. Pulses normal throughout. Respiratory: NC Oxygen in place. No acute respiratory distress. No wheezes/rhonchi noted. No accessory muscle usage noted or decreased air movement noted. Abdomen: Soft and nontender. Back: Full range of motion noted. Skin: Skin warm and dry. Normal skin color. Normal skin turgor. No rashes/lesions/lacerations noted. Extremities: No lower extremity edema. Extremities exhibit normal range of m otion. Extremities nontender. Neuro: Oriented X 3. No motor deficit. No sensory deficit. Reflexes normal. Results AMB Hemoglobin A1c AMB Hemoglobin A1c 4.6 % Last Edit by ALEX Moses on 08/18/24 11 :24 Results Reviewed Results Reviewed: Laboratory Last Values Hgb A1c (Clinic) 4.6 % (4.0-6.0) 08/18/24 11:23 - Labs: Previous results indicated elevated triglycerides and vitamin D deficiency. - Tests and Diagnostics: Prior CT scan of pulmonary system indicating little esophageal thickening. Coding Level of Care Code Complex EM visit Add On G2211 Diagnoses Annual physical exam Z00.00 Interstitial lung disease J84.9 Gastroesophageal reflux disease, unspecified whether esophagitis present K21.9 Esophagitis presence: esophagitis presence not specified Hypovitaminosis D E55.9 H/O degenerative disc disease Z87.39 Class 1 obesity with body mass index (BMI) of 34.0 to 34.9 in adult E66.811; Z68.34 Depression F32.A Additional Codes VIET-7 Assessment Billing - VIET-7 Assessment Tool: VIET-7 Assessment 87757 ([id number]) PHQ-9 - 96549 - PHQ-9 Billing: Yes ([id number]) Assessment & Plan Assessment & Plan (1) Annual physical exam: Code(s): Z00.00 - Encounter for general adult medical examination without abnormal findings Category: Medical (2) Interstitial lung disease: Code(s): J84.9 - Interstitial pulmonary disease, unspecified Category: Medical Plan: Continuation of current management protocols with emphasis on symptom control and periodic re-evaluation. Continue f/u with Clothing Patternmaker as scheduled.Continue 1LNC Oxygen. Clothing Patternmaker recommendations albuterole, Ventolin, Symbicort, montelukast, prednisone 40mg daily. Condition is chronic and stable. (3) GERD (gastroesophageal reflux disease): Code(s): K21.9 - Gastro-esophageal reflux disease without esophagitis Category: Medical Qualifiers: Esophagitis presence: esophagitis presence not specified Qualified Code(s): K21.9 - Gastro-esophageal reflux disease without esophagitis Plan: Maintain current PPI therapy with sucralfate 1 mg at bedtime, omeprazole 40 mg daily; consider gastrointestinal referral if there are drastic changes in symptoms. Condition is chronic and stable. (4) Hypovitaminosis D: Code(s): E55.9 - Vitamin D deficiency, unspecified Category: Medical Plan: Continue supplementation; reassess serum levels at next encounter. (5) H/O degenerative disc disease: Code(s): Z87.39 - Personal history of other diseases of the musculoskeletal system and connective tissue Category: Medical Plan: Pain management strategies and potential physical therapy recommendation for mobility improvement. Continue meloxicam. Condition is chronic and stable. (6) Class 1 obesity with body mass index (BMI) of 34.0 to 34.9 in adult: Code(s): E66.811 - Obesity, class 1; Z68.34 - Body mass index [BMI] 34.0-34.9, adult Category: Medical Plan: Patient to improve diet and exercise regime. Condition is chronic and stable. (7) Depression: Code(s): F32.A - Depression, unspecified Category: Medical Plan: Engagement with a mental health professional for therapy initiated at this time during visit, to be conducted in [place]. Plan Plan Patient was informed and verbally consented to the use of an ambient scribe for clinic note documentation during this visit. 1. Gastroesophageal Reflux Disease Maintain current PPI therapy; consider gastrointestinal referral if there are drastic changes in symptoms. 2. Pulmonary Nodules Monitor with periodic CT scans to assess progression and pulmonology follow-up appointments for further evaluation. 3. Interstitial Lung Disease Continuation of current management protocols with emphasis on symptom control and periodic re-evaluation. 4. Degenerative Joint Disease Pain management strategies and potential physical therapy recommendation for mobility improvement. 5. Vitamin D Deficiency Continue supplementation; reassess serum levels at next encounter. 6. Depression Engagement with a mental health professional for therapy initiated, to be conducted in [place]. I explained to the patient the ongoing necessity of monitoring her pulmonary nodules and interstitial lung disease with clinical follow-ups and imaging examinations. We discussed and arranged a referral to a mental health professional proficient in [place] to address her depression symptoms, given her recent psychosocial stressors. The conversation emphasized the importance of managing gastroesophageal reflux symptoms through continued medication and assessment for signs of esophageal inflammation. I recommended updating her fasting blood lipid profile and vitamin D levels at her next visit to confirm if dietary interventions have stabilized her health markers. I provided preliminary advisement on managing joint pain and maintaining functional mobility within her abilities. Orders: Orders C Reactive Protein Today Z00.00 - Encounter for general adult medical examinati on without abnormal findings Complete Blood Count Auto Diff Today Z00.00 - Encounter for general adult medical examination without abnormal findings Comprehensive [place]. Panel Fast Today Z00.00 - Encounter for general adult medical examination without abnormal findings Magnesium Today Z00.00 - Encounter for general adult medical examination without abnormal findings Liver Panel Today Z00.00 - Encounter for general adult medical examination without abnormal findings Lipid Panel Today Z00.00 - Encounter for general adult medical examination without abnormal findings Vitamin D 25-OH Total Today Z00.00 - Encounter for general adult medical examination without abnormal findings Zinc Today Z00.00 - Encounter for general adult medical examination without abnormal findings MM screening mammo BI Today Z12.31 - Encounter for screening mammogram for malignant neoplasm of breast AMB Hemoglobin A1c Today Z13.9 - Encounter for screening, unspecified Erythrocyte Sedimentation Rate Today Z00.00 - Encounter for general adult medical examination without abnormal findings Vitamin B12 and Folate Today Z00.00 - Encounter for general adult medical examination without abnormal findings Vitamin B1 Today Z00.00 - Encounter for general adult medical examination without abnormal findings TSH reflex Free T4 Today Z00.00 - Encounter for general adult medical examination without abnormal findings Referrals Psychiatry Outpatient Consultation Service F32.A - Depression, unspecified Counseling Referral F32.A - Depression, unspecified Patient Instructions: Patient Instructions - Continue current medications for reflux and vitamin D supplementation. - Engage with assigned mental health professional for therapy. - Return for follow-up blood work to assess triglycerides and vitamin D status. - Monitor pulmonary symptoms and attend scheduled pulmonology evaluations. - Schedule a GI consultation if reflux symptoms change substantially.
[2024-08-18 10:42] VITALS: BP 130/86; PULSE 83; O2SAT 97; BMI 34.2
--- OUTSIDE RECORDS SUMMARY | 2024-08-18 12:25 | XMS_ITS | Clinical Summary ---
Author Organization [facility] ity Address [address] [place] [address] Care Team Providers Care Invoicing Specialist Name Role Phone Unavailable Primary Care Provider [...] age to complete this topic Meningococcal B Vaccine Aged Out No l onger eligible based on patient's age to complete [...]
== END 2024-08-18 11:56 | disposition home or self-care (01) ==
LOC: HO.HMCH 10:31
PROVIDERS: PCP Internal Medicine; Visit Provider Physician Assistant Medical
DX: Z13.9 Encounter for screening, unspecified (principal)

== ENCOUNTER 2024-08-18 10:30 | Outpatient (REF) | payer OTHER, SELFPAY ==
[2024-08-18 12:33] LABS: MANUAL DIFF FLAG NO
[2024-08-18 12:44] LABS: Basophils Absolute Auto 0.1 X10*3/uL (0.0-0.2); Basophils Percent Auto 0.8 % (0-2); Eosinophils Absolute Auto 0.1 X10*3/uL (0.0-0.4); Eosinophils Percent Auto 1.8 % (0-4); Hematocrit 37.6 % (37.0-47.0); Hemoglobin 13.6 g/dl (12.0-16.0); Imm Gran Abs Auto 0.03 X10*3/uL (0.00-0.03); Imm Gran Pct Auto 0.5 % (0.0-0.4); Lymphocytes Absolute Auto 1.3 X10*3/uL (1.2-4.9); Lymphocytes Percent Auto 21.2 % (20-40); Mean Corpuscular HGB Conc 36.2 g/dl (31.0-35.0); Mean Corpuscular Hemoglobin 33.4 pg (27.0-33.0); Mean Corpuscular Volume 92.4 fL (80.0-98.0); Mean Platelet Volume 9.7 fL (9.4-12.3); Monocytes Absolute Auto 0.4 X10*3/uL (0.1-1.2); Monocytes Percent Auto 6.5 % (2-11); Neutrophils Absolute Auto 4.4 x10*3/uL (2.0-8.3); Neutrophils Percent Auto 69.2 % (45-73); Platelet Count 300 X10*3/uL (160-400); Red Blood Count 4.07 X10*6/uL (4.20-5.50); Red Cell Distribution Width 13.2 % (11.0-16.0); White Blood Count 6.3 X10*3/uL (4.8-10.8)
[2024-08-18 13:32] LABS: Alanine Aminotransferase 18 U/L (0-31); Albumin Level 4.2 g/dL (3.5-5.0); Alkaline Phosphatase 51 U/L (39-117); Anion Gap 12 (12-20); Aspartate Amino Transferase 21 U/L (5-31); Bilirubin Direct 0.2 mg/dL (0.0-0.5); Bilirubin Total 0.6 mg/dL (0.0-1.0); Blood Urea Nitrogen 14 mg/dL (9-16); C Reactive Protein 0.14 mg/dL (< or = 0.50); Calcium 9.6 mg/dL (8.4-10.2); Carbon Dioxide 26 mmol/L (22-29); Chloride 110 mmol/L (96-108); Cholesterol 183 mg/dL (<200); Estimated Glomerular Filt Rate > 60; Glucose Fasting 96 mg/dL (60-99); HDL Cholesterol 61 mg/dL (>40); LDL Cholesterol Calculated 94 mg/dL (<100); Magnesium 1.6 mg/dL (1.6-2.6); Sodium 144 mmol/L (135-145); Total Protein 7.2 g/dL (6.5-8.0); Triglycerides 144 mg/dL (<150)
[2024-08-18 13:48] LABS: TSH reflex Free T4 0.45 uIU/mL (0.32-4.0); Vitamin D 25-OH Total 26.8 ng/mL (>30)
[2024-08-18 13:57] LABS: Folate 10.3 ng/mL (> or = 4.0); Vitamin B12 1071 pg/mL (200-900)
[2024-08-18 14:19] LABS: Erythrocyte Sedimentation Rate 20 MM/HR (0-20)
--- OUTSIDE RECORDS SUMMARY | 2024-08-18 14:42 | XMS_ITS | Clinical Summary ---
Author Organization [facility] ity Address [address] [place] [address] Care Team Providers Care Feather Boner Name Role Phone Unavailable Primary Care Provider [...] Vaccine ( - 2023-2 5 season) 2024 Pneumococcal Vaccine: 50+ Ye ars (1 of 1 - PCV) 2024 Zoster Vaccines (1 of 2) 2024 Influenza Vaccine (Season Ended) 2025 HIB Vaccines Aged Out No longer eligi [...]
[2024-08-19 10:29] LABS: Immunoglobulin E <2 kU/L (<OR=114)
[2024-08-21 12:58] LABS: Zinc 68 mcg/dL (60-130)
[2024-08-30 15:18] LABS: Vitamin B1 <6 nmol/L (8-30)
== END 2024-08-18 10:31 | disposition home or self-care (01) ==
LOC: HO.LAB 10:30
PROVIDERS: Nurse Practitioner Family; PCP Internal Medicine; Visit Provider Physician Assistant Medical
DX: Z00.00 Encounter for general adult medical examination without abnormal findings (principal); J84.9 Interstitial pulmonary disease, unspecified; K21.9 Gastro-esophageal reflux disease without esophagitis; E55.9 Vitamin D deficiency, unspecified; F32.A Depression, unspecified; E66.811 Obesity, class 1; Z68.34 Body mass index [BMI] 34.0-34.9, adult; Z87.39 Personal history of other diseases of the musculoskeletal system and connective tissue; Z91.09 Other allergy status, other than to drugs and biological substances; Z13.1 Encounter for screening for diabetes mellitus
CPT/HCPCS: 36415; 80053; 80061; 80076; 82248; 82306; 82607; 82746; 82785; 83036; 83735; 84425; 84443; 84630; 85025; 85652; 86140; 96127; 99396

== ENCOUNTER 2024-09-19 13:04 | Outpatient (AMB) | payer MEDICAID, SELFPAY ==
--- NOTE | 2024-09-19 12:26 | MHC.OFFVIS ---
Vital Signs 09/19/24 13:08 Height 5 ft Weight 180 lb 12.465 oz BMI 35.3 BP 140/88 H Blood Pressure Location Rt brachial Position Sitting Pulse 94 Pulse Source Pulse Oximeter Pulse Oximetry (%) 97 Oxygen Delivery Method Nasal Cannula Oxygen Flow Rate 1 Intake Visit Reasons: Asthma Allergies No Known Allergies Allergy (Verified 09/19/24 13:14) HPI HPI Asthma: Details: Lesley is a pleasant 49 year old female, never smoker, with underlying asthma, GERD and RA on plaquenil under the care of [facility], previously on Leflunomide. She was admitted in July 2023 for acute respiratory failure secondary to influenza A requiring prolonged high flow. She has been maintained on supplemental oxygen 1L with exertion and symbicort 160mcg. She is under the care of rheumatology through the [facility], who d/c leflunomide, as initially thought she may have component of medication induced ILD. PFT 01/2024 revealed moderate restrictive defect with decreased TLC and DLCO. 42%, suggestive of ILD. Reviewed chest CT 05/2024, which revealed diffuse ground glass densities with Dr. Kilpatrick, thought to have a fluid component trialed on lasix, however no respiratory improvements. She was then started on 40 mg prednisone x 1 month with improvements in symptoms and resolution of ggo on CT. She reports improvements in dry cough however continues with dyspnea on exertion and intermittent wheezing, continuing to require 1L supplemental oxygen with exertion. She frequently checks oxygen saturation and desaturate to 86% on room air with exertion. She maintains >92% using 1L supplemental oxygen. She denies any visits to urgent care or hospitalization related to respiratory distress since the last visit. Of note, she does report daytime fatigue, morning headaches. loud snoring and witnessed apneas. Denies recent sleep study. [facility] Medical History (Updated 09/19/24 @ 13:25 by Nydia Gillespie NP) Thiamine deficiency Depression Class 1 obesity with body mass index (BMI) of 34.0 to 34.9 in adult H/O degenerative disc disease Annual physical exam Hyperlipidemia Vitamin D deficiency Migraines Sessile serrated polyp of colon Abdominal pain Morbid obesity due to excess calories Physical exam Obesity (BMI 30-39.9) Osteoarthritis of right ankle Allergic rhinitis GERD (gastroesophageal reflux disease) Asthma Rheumatoid arthritis Surgical History History of esophagogastroduodenoscopy (EGD) H/O colonoscopy (~05/15/23) Hx laparoscopic cholecystectomy (~09/2018) History of total left hip arthroplasty Hx of tubal ligation H/O section Hx of laparoscopic gastric banding Family History Father Diabetes mellitus Hypertension Maternal Aunt Breast cancer Mother CAD (coronary artery disease) Diabetes mellitus Sister No problems noted. Brother No problems noted. Brother No problems noted. Brother No problems noted. Son No problems noted. Daughter Hypertension Asthma Daughter Obesity ADHD Social History Housing: House Alcohol intake: current Alcohol intake frequency: holidays/special occasions only Alcohol type: beer, wine and hard liquor Patient Tobacco Use Status: Never used Tobacco e-Cigarette/Vaping Use: Never Used Second Hand Smoke Exposure: Yes service: No Current occupational status: disabled Cognitive needs: No Hearing needs: No Vision needs: Yes Female Reproductive History Menstrual Age of Menarche: 11 Review of Systems Const Denies chills, Denies excessive sweating, Denies fever(s), Denies headache(s) and Denies night sweats Eyes Denies dry eyes, Denies irritation and Denies itchy eyes ENT Reports Normal hearing present and Denies headache(s) Card Denies chest pain, Denies chest pain at rest, Denies chest pain with activity, Denies claudication, Denies leg edema, Reports dyspnea on exertion, Denies orthopnea and Denies paroxysmal nocturnal dyspnea Resp Denies chest congestion, Denies excessive phlegm production, Denies pain on inspiration, Denies pain with cough, Reports dyspnea on exertion and Denies stridor Neuro Reports Normal hearing present and Denies headache(s) Endo Denies excessive sweating Abe/Lymph Denies lymphadenopathy Aller/Immun Denies itchy eyes and Denies seasonal rhinorrhea Physical Exam Vital Signs: Last Vital Signs Pulse 94 09/19/24 13:08 BP 140/88 H 09/19/24 13:08 Pulse Ox 97 09/19/24 13:08 Oxygen Delivery Method Nasal Cannula 09/19/24 13:08 Oxygen Flow Rate 1 09/19/24 13:08 BMI result Body Mass Index 35.3 Const General: cooperative, healthy appearing, comfortable, no acute distress, well developed and alert Nutritional Appearance: obese Orientation/consciousness: patient oriented x3 Limitations: no limitations HEENT Head: Yes normal to inspection, Yes normocephalic and Yes atraumatic Ears: hearing grossly normal bilaterally and external ears normal Eyes General: appearance normal, both eyes and all related structures Eyelids: Yes eyelids normal Sclerae: sclerae normal EOM: EOMs intact bilaterally Neck Neck: Yes normal visual inspection and Yes no lymphadenopathy Lymphatic: no lymphadenopathy noted Chest Chest palpation & inspection: normal inspection of the chest Resp Effort & Inspection: normal respiratory effort, able to speak in complete sentences, no audible wheezes, no cough, no stridor, not tachypneic, no tripod positioning and no use of accessory muscles Auscultation: diminished lung sounds (bases) and rub present (bilateral upper lobes) Cardio Jugular venous distension: no JVD Rate: regular rate Rhythm: regular rhythm Skin Other: warm, dry General skin exam: no rashes or lesions noted Neuro General: patient oriented x3 Cranial nerves: Yes Normal hearing present Cognition (Neuro): normal cognition Gait exam (Neuro): Normal gait present Extrem General: Yes normal to inspection, Yes capillary refill normal, Yes no clubbing, cyanosis or edema and Yes no pedal edema Psych Appearance: grossly normal and well kempt Speech and movement: Normal speech and movement present and Clear speech present Affect: normal affect Attitude: cooperative Thought process: Normal thought process present Thought content: Normal thought content present Insight: Good insight present (Psych) Judgement: Good judgement present (Psych) Assessment & Plan Assessment & Plan (1) Asthma: Code(s): J45.909 - Unspecified asthma, uncomplicated Category: Medical (2) Rheumatoid arthritis: Code(s): M06.9 - Rheumatoid arthritis, unspecified Category: Medical (3) Hypoxia: Code(s): R09.02 - Hypoxemia Category: Medical (4) Interstitial lung disease: Code(s): J84.9 - Interstitial pulmonary disease, unspecified Category: Medical (5) Daytime somnolence: Code(s): R40.0 - Somnolence Category: Medical Plan Patient was started on prednisone 40 mg QD for 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 She will complete a total of three months, which would be two weeks from today and begin to taper by 10 mg every 2 weeks. Unfortunately, she continues to require 1 L supplemental oxygen with significant dyspnea on exertion and intermittent wheezing. Will refer to Dr. Kilpatrick for further evaluation. At this time, advised to continue Symbicort and supplemental oxygen 1L with exertion. Will send for sleep study as patient report symptoms suggestive of MARIELOS. Discussed in lab sleep study given need for supplemental oxygen however she deferred but was agreeable for home sleep study. All questions were answered and patient is in agreement of plan. Will follow up after evaluation with Dr. Kilpatrick or sooner if needed. Orders: Orders RT home sleep study 09/19/24 R40.0 - Somnolence Medications: New prednisone see taper instructions 30 mg x 14 days, 20 mg x 14 days, 10 mg x 14 days, 5 mg x 14 days 10 mg PO DIRECTED 91 tabs 0RF Coding Level of Care Code Est Pt Level 4 (44119) Complex EM visit Add On G2211 Diagnoses Asthma J45.909 Rheumatoid arthritis M06.9 Hypoxia R09.02 Interstitial lung disease J84.9 Daytime somnolence R40.0
[2024-09-19 13:08] VITALS: BP 140/88; PULSE 94; O2SAT 97; BMI 35.3
--- OUTSIDE RECORDS SUMMARY | 2024-09-19 13:24 | XMS_ITS | Clinical Summary ---
[facility] Address [address] [place] [address] Care Team Providers Care Rail Express Clerk Name Role Phone Unavailable Primary Care Provider [...]
== END 2024-09-19 13:46 | disposition home or self-care (01) ==
LOC: HO.HPS 13:05
PROVIDERS: PCP Internal Medicine; Visit Provider Nurse Practitioner Family
DX: J45.909 Unspecified asthma, uncomplicated (principal); M06.9 Rheumatoid arthritis, unspecified; R09.02 Hypoxemia; J84.9 Interstitial pulmonary disease, unspecified; R40.0 Somnolence
CPT/HCPCS: 99214

== ENCOUNTER → 2024-09-19 13:04 | Outpatient (BNVA) | payer MEDICAID, SELFPAY | PROVIDERS: PCP Internal Medicine; Visit Provider Nurse Practitioner Family | DX: J84.9 Interstitial pulmonary disease, unspecified (principal); J45.909 Unspecified asthma, uncomplicated; M06.9 Rheumatoid arthritis, unspecified; R09.02 Hypoxemia; R40.0 Somnolence | CPT/HCPCS: 99212 ==

== ENCOUNTER 2024-09-30 13:07 | Outpatient (AMB) | payer MEDICAID, SELFPAY ==
--- OUTSIDE RECORDS SUMMARY | 2024-09-30 13:10 | XMS_ITS | Clinical Summary ---
[facility] [address] [place] [address] Care Team Providers Care Medical Records Field Technician Name Role Phone Unavailable Primary Care Provider [...]
[2024-09-30 13:17] VITALS: BP 106/62; PULSE 110; O2SAT 99; BMI 35.3
--- NOTE | 2024-09-30 13:17 | A.OFFVIS_ITS ---
Vital Signs 09/30/24 13:17 Height 5 ft Weight 181 lb BMI 35.3 BP 106/62 Blood Pressure Location Lt brachial Position Sitting Pulse 110 H Pulse Source Pulse Oximeter Pulse Oximetry (%) 99 Oxygen Delivery Method Nasal Cannula Oxygen Flow Rate 1 Intake Visit Reasons: Asthma - O2 dependent Allergies No Known Allergies Allergy (Verified 09/19/24 13:14) HPI HPI Asthma - O2 dependent: Details: 49-year-old lady with underlying rheumatoid arthritis currently on Plaquenil, followed for rheumatoid arthritis associated interstitial lung disease supplemental oxygen dependent 1 L with exertion. Patient continues on prednisone taper, now at 40 mg daily and going down by 10 mg every 2 weeks. Her symptoms are well controlled. [facility] Medical History (Updated 09/30/24 @ 13:54 by Russ Kilpatrick MD) Multiple pulmonary nodules Interstitial lung disease Thiamine deficiency Depression H/O degenerative disc disease Hyperlipidemia Vitamin D deficiency Migraines Sessile serrated polyp of colon Abdominal pain Obesity (BMI 30-39.9) Osteoarthritis of right ankle Allergic rhinitis GERD (gastroesophageal reflux disease) Asthma Rheumatoid arthritis Surgical History (Updated 09/30/24 @ 11:23 by Cheyenne [place] PA-C) History of colonoscopy History of esophagogastroduodenoscopy (EGD) Hx laparoscopic cholecystectomy (~09/2018) History of total left hip arthroplasty Hx of tubal ligation H/O section Hx of laparoscopic gastric banding Family History Father Diabetes mellitus Hypertension Maternal Aunt Breast cancer Mother CAD (coronary artery disease) Diabetes mellitus Sister No problems noted. Brother No problems noted. Brother No problems noted. Brother No problems noted. Son No problems noted. Daughter Hypertension Asthma Daughter Obesity ADHD Social History Housing: House Alcohol intake: current Alcohol intake frequency: holidays/special occasions only Alcohol type: beer, wine and hard liquor Patient Tobacco Use Status: Never used Tobacco e-Cigarette/Vaping Use: Never Used Second Hand Smoke Exposure: Yes service: No Current occupational status: disabled Cognitive needs: No Hearing needs: No Vision needs: Yes Female Reproductive History Menstrual Age of Menarche: 11 Review of Systems Const Denies daytime sleepiness, Denies excessive sweating, Denies fatigue, Denies fever(s), Denies lethargy, Denies malaise, Denies night sweats, Denies snoring and Denies weight loss Eyes Denies blurry vision and Denies itchy eyes ENT Denies nasal congestion, Denies post nasal drip, Denies sinus pain, Denies sinus pressure and Denies other ( Thrush) Card Denies chest pain, Denies pedal edema, Denies dyspnea, Denies orthopnea and Denies paroxysmal nocturnal dyspnea Resp Denies cough, Denies hemoptysis, Denies excessive phlegm production, Denies dyspnea, Denies snoring and Denies wheezing GI Denies abdominal pain and Denies heartburn Musc Denies myalgias, Denies arthralgias and Denies joint swelling Skin/Breast Denies rash Neuro Denies memory loss and Denies seizure-like activity Psych Denies abnormal sleep pattern, Denies anxiety and Denies memory loss Endo Denies excessive sweating, Denies fatigue and Denies heat intolerance Abe/Lymph Denies easy bruising Aller/Immun Denies itchy eyes, Denies seasonal rhinorrhea and Denies wheezing Physical Exam Vital Signs: Last Vital Signs Pulse 110 H 09/30/24 13:17 BP 106/62 09/30/24 13:17 Pulse Ox 99 09/30/24 13:17 Oxygen Delivery Method Nasal Cannula 09/30/24 13:17 Oxygen Flow Rate 1 09/30/24 13:17 BMI result Body Mass Index 35.3 Const General: no acute distress and alert Nutritional Appearance: obese Orientation/consciousness: Other orientation findings ( oriented) HEENT Head: Yes atraumatic Eyes General: appearance normal, both eyes and all related structures Sclerae: sclerae normal EOM: EOMs intact bilaterally Neck Neck: Yes supple Lymphatic: no lymphadenopathy noted Resp Effort & Inspection: normal respiratory effort and no use of accessory muscles Auscultation: clear to auscultation bilaterally Cardio Rate: regular rate Rhythm: regular rhythm Heart sounds: no gallops, no murmurs and no rubs Skin General skin exam: other ( warm) Extrem General: No clubbing, No cyanosis and No edema Assessment & Plan Assessment & Plan (1) Interstitial lung disease: Code(s): J84.9 - Interstitial pulmonary disease, unspecified Category: Medical Plan: Rheumatoid arthritis associated interstitial lung disease, continues on prednisone taper. Respiratory symptoms are well controlled. (2) Supplemental oxygen dependent: Code(s): Z99.81 - Dependence on supplemental oxygen Category: Medical Plan: Continue supplemental oxygen to maintain O2 saturation above 88% Coding Level of Care Code Est Pt Level 4 (13716) Diagnoses Interstitial lung disease J84.9 Supplemental oxygen dependent Z99.81
== END 2024-09-30 13:50 | disposition home or self-care (01) ==
LOC: HO.HPS 13:08
PROVIDERS: PCP Internal Medicine; Visit Provider Internal Medicine Pulmonary Disease
DX: J84.9 Interstitial pulmonary disease, unspecified (principal); Z99.81 Dependence on supplemental oxygen
CPT/HCPCS: 99214

== ENCOUNTER → 2024-09-30 13:07 | Outpatient (BNVA) | payer OTHER, SELFPAY | PROVIDERS: PCP Internal Medicine; Visit Provider Internal Medicine Pulmonary Disease | DX: J84.9 Interstitial pulmonary disease, unspecified (principal); Z99.81 Dependence on supplemental oxygen | CPT/HCPCS: 99212 ==

== ENCOUNTER 2024-10-15 10:37 | Outpatient (REF) | payer OTHER, SELFPAY | END 2024-10-15 10:38 | disposition home or self-care (01) | LOC: HO.MAMMO 10:37 | PROVIDERS: PCP Internal Medicine; Visit Provider Physician Assistant Medical | DX: Z12.31 Encounter for screening mammogram for malignant neoplasm of breast (principal) | CPT/HCPCS: 77063; 77067 ==

== ENCOUNTER → 2024-10-15 10:45 | Outpatient (BNV) | payer OTHER, SELFPAY | PROVIDERS: PCP Internal Medicine; Visit Provider Internal Medicine | DX: Z12.31 Encounter for screening mammogram for malignant neoplasm of breast (principal) | CPT/HCPCS: 77063; 77067 ==

== ENCOUNTER → 2024-11-30 08:46 | Outpatient (BNV) | payer OTHER, SELFPAY | PROVIDERS: PCP Internal Medicine; Visit Provider Internal Medicine | DX: R06.83 Snoring (principal) | CPT/HCPCS: 95806 ==

== ENCOUNTER → 2024-11-30 12:56 | Outpatient (REF) | payer OTHER, SELFPAY ==
--- OUTSIDE RECORDS SUMMARY | 2024-11-30 13:20 | XMS_ITS | Clinical Summary ---
Author Organization [facility] ity Address [address] [place] [address] Care Team Providers Care Spool Sander Name Role Phone Unavailable Primary Care Provider [...] Screening: P ap Smear 1995 COVID-19 Vaccine (1 - 2023-2 5 season) 2024 Depression Screening 05/11/2024 Pneumococcal Vaccine: 50+ Ye ars (1 of 1 - PCV) 2024 Zoster Vaccines (1 of 2) 2024 Influenza Vaccine (#1) 2025 HIB Vaccines Aged Out No longer [...]
== END ==
LOC: HO.SL 12:56
PROVIDERS: PCP Internal Medicine; Visit Provider Nurse Practitioner Family
DX: R40.0 Somnolence (principal); R06.83 Snoring
CPT/HCPCS: 95806

== ENCOUNTER 2024-12-06 09:56 | Outpatient (REF) | payer OTHER, SELFPAY ==
--- NOTE | ~2024-12-06 | MM_ITS ---
EXAMINATION: MM DIAGNOSTIC DIGITAL BREAST TOMOSYNTHESIS, LEFT CLINICAL INFORMATION: Callback from screening for asymmetry seen in the superior breast middle depth on the MLO view. COMPARISON: Comparison made to multiple prior, most recent October 15, 2024, and most remote September 11, 2021. TECHNIQUE: Digital breast tomosynthesis is performed in mediolateral oblique views along with computer-aided detection (CAD). Synthesized 2D images are generated from the tomosynthesis. Spot compression tomosynthesis images were also obtained. FINDINGS: BREAST COMPOSITION: There are scattered areas of fibroglandular density (ACR BI-RADS breast composition Category b). LEFT BREAST: Previously described asymmetry in the upper breast middle depth is pliable with spot compression. On today's images, the appearance of the local parenchyma is similar to multiple prior studies as far back as 2021, therefore, likely represented overlapping fibroglandular breast tissue. MM/MM tomosynthesis added views L IMPRESSION: LEFT BREAST: Negative, no mammographic evidence of malignancy. Normal interval follow-up is recommended in 12 months. ASSESSMENT: BI-RADS 1 - Negative RECOMMENDATION: 1 year F/U Results were provided to the patient at time of visit by the technologist. This patient's information was entered into a reminder system with a target due date for their next mammogram. Electronically signed by: Ximena Hernández MD 12/06/2024 10:46 AM EDT
--- OUTSIDE RECORDS SUMMARY | 2024-12-06 10:36 | XMS_ITS | Clinical Summary ---
Author Organization [facility] ity Address [address] [place] [address] Care Team Providers Care Logistics Engineering Manager Name Role Phone Unavailable Primary Care Provider [...]
== END 2024-12-06 09:57 | disposition home or self-care (01) ==
LOC: HO.MAMMO 09:56
PROVIDERS: PCP Physician Assistant Medical; Visit Provider Physician Assistant Medical
DX: N64.89 Other specified disorders of breast (principal)
CPT/HCPCS: 77061; 77065

== ENCOUNTER → 2024-12-06 10:00 | Outpatient (BNV) | payer OTHER, SELFPAY | PROVIDERS: PCP Physician Assistant Medical; Visit Provider Radiology Body Imaging | DX: R92.8 Other abnormal and inconclusive findings on diagnostic imaging of breast (principal) | CPT/HCPCS: 77061; 77065 ==

== ENCOUNTER 2024-12-22 13:00 | Outpatient (AMB) | payer OTHER, SELFPAY ==
[2024-12-22 13:11] VITALS: BP 102/62; PULSE 103; O2SAT 99; BMI 35.2
--- NOTE | 2024-12-22 13:11 | MHC.OFFVIS ---
Vital Signs 12/22/24 13:11 Height 5 ft Weight 180 lb BMI 35.2 BP 102/62 Blood Pressure Location Lt brachial Position Sitting Pulse 103 H Pulse Source Pulse Oximeter Pulse Oximetry (%) 99 Oxygen Delivery Method Nasal Cannula Oxygen Flow Rate 1 Intake Visit Reasons: Asthma Allergies No Known Allergies Allergy (Verified 09/19/24 13:14) HPI HPI Asthma: Details: 49-year-old lady with underlying rheumatoid arthritis currently on Plaquenil, followed for rheumatoid arthritis associated interstitial lung disease supplemental oxygen dependent 1 L with exertion. Patient has been finished her prednisone taper and her symptoms did not recur after that. She continue to use supplemental oxygen at 1 L, however her O2 saturation today is 99%. She did complete her sleep study that showed no underlying obstructive sleep apnea. Patient does have chronic tachycardia with her pulse at around 100-110. [facility] Medical History (Updated 09/30/24 @ 13:54 by Russ Kilpatrick MD) Multiple pulmonary nodules Interstitial lung disease Thiamine deficiency Depression H/O degenerative disc disease Hyperlipidemia Vitamin D deficiency Migraines Sessile serrated polyp of colon Abdominal pain Obesity (BMI 30-39.9) Osteoarthritis of right ankle Allergic rhinitis GERD (gastroesophageal reflux disease) Asthma Rheumatoid arthritis Surgical History (Updated 09/30/24 @ 11:23 by Cheyenne [place] PA-C) History of colonoscopy History of esophagogastroduodenoscopy (EGD) Hx laparoscopic cholecystectomy (~09/2018) History of total left hip arthroplasty Hx of tubal ligation H/O section Hx of laparoscopic gastric banding Family History Father Diabetes mellitus Hypertension Maternal Aunt Breast cancer Mother CAD (coronary artery disease) Diabetes mellitus Sister No problems noted. Brother No problems noted. Brother No problems noted. Brother No problems noted. Son No problems noted. Daughter Hypertension Asthma Daughter Obesity ADHD Social History Housing: House Alcohol intake: current Alcohol intake frequency: holidays/special occasions only Alcohol type: beer, wine and hard liquor Patient Tobacco Use Status: Never used Tobacco e-Cigarette/Vaping Use: Never Used Second Hand Smoke Exposure: Yes service: No Current occupational status: disabled Cognitive needs: No Hearing needs: No Vision needs: Yes Female Reproductive History Menstrual Age of Menarche: 11 Review of Systems Const Denies daytime sleepiness, Denies excessive sweating, Denies fatigue, Denies fever(s), Denies lethargy, Denies malaise, Denies night sweats, Denies snoring and Denies weight loss Eyes Denies blurry vision and Denies itchy eyes ENT Denies nasal congestion, Denies post nasal drip, Denies sinus pain, Denies sinus pressure and Denies other ( Thrush) Card Denies chest pain, Denies pedal edema, Denies dyspnea, Denies orthopnea and Denies paroxysmal nocturnal dyspnea Resp Denies cough, Denies hemoptysis, Denies excessive phlegm production, Denies dyspnea, Denies snoring and Denies wheezing GI Denies abdominal pain and Denies heartburn Musc Denies myalgias, Denies arthralgias and Denies joint swelling Skin/Breast Denies rash Neuro Denies memory loss and Denies seizure-like activity Psych Denies abnormal sleep pattern, Denies anxiety and Denies memory loss Endo Denies excessive sweating, Denies fatigue and Denies heat intolerance Abe/Lymph Denies easy bruising Aller/Immun Denies itchy eyes, Denies seasonal rhinorrhea and Denies wheezing Physical Exam Vital Signs: Last Vital Signs Pulse 103 H 12/22/24 13:11 BP 102/62 12/22/24 13:11 Pulse Ox 99 12/22/24 13:11 Oxygen Delivery Method Nasal Cannula 12/22/24 13:11 Oxygen Flow Rate 1 12/22/24 13:11 BMI result Body Mass Index 35.2 Const General: no acute distress and alert Nutritional Appearance: obese Orientation/consciousness: Other orientation findings ( oriented) HEENT Head: Yes atraumatic Eyes General: appearance normal, both eyes and all related structures Sclerae: sclerae normal EOM: EOMs intact bilaterally Neck Neck: Yes supple Lymphatic: no lymphadenopathy noted Resp Effort & Inspection: normal respiratory effort and no use of accessory muscles Auscultation: clear to auscultation bilaterally Cardio Rate: regular rate Rhythm: regular rhythm Heart sounds: no gallops, no murmurs and no rubs Skin General skin exam: other ( warm) Extrem General: No clubbing, No cyanosis and No edema Assessment & Plan Assessment & Plan (1) Rheumatoid arthritis: Code(s): M06.9 - Rheumatoid arthritis, unspecified Category: Medical (2) Supplemental oxygen dependent: Code(s): Z99.81 - Dependence on supplemental oxygen Category: Medical (3) Interstitial lung disease: Code(s): J84.9 - Interstitial pulmonary disease, unspecified Category: Medical Plan Patient was undergoing 6 minute walk test/supplemental oxygen evaluation when she suddenly became ashen and collapsed, though with normal oxygenation at 100% and mild tachycardia on 02/29/2020. Patient was taken to emergency room for an acute evaluation. Coding Level of Care Code Est Pt Level 3 (45604) Diagnoses Rheumatoid arthritis M06.9 Supplemental oxygen dependent Z99.81 Interstitial lung disease J84.9
--- OUTSIDE RECORDS SUMMARY | 2024-12-22 13:49 | XMS_ITS | Clinical Summary ---
Author Organization [facility] ity Address [address] [place] [address] Care Team Providers Care Upholstery Trimmer Name Role Phone Unavailable Primary Care Provider [...]
== END 2024-12-22 13:54 | disposition home or self-care (01) ==
LOC: HO.HPS 13:01
PROVIDERS: PCP Internal Medicine; Visit Provider Internal Medicine Pulmonary Disease
DX: M06.9 Rheumatoid arthritis, unspecified (principal); Z99.81 Dependence on supplemental oxygen; J84.9 Interstitial pulmonary disease, unspecified
CPT/HCPCS: 99213

== ENCOUNTER 2024-12-22 13:52 | Observation (INO) | payer OTHER, SELFPAY ==
[2024-12-22 13:55] VITALS: BP 153/89; PULSE 115; RESP 22; TEMP 36.9; O2SAT 100; BMI 34.3
--- NOTE | 2024-12-22 13:58 | ECG_ITS ---
Test Reason : DIZZINESS Blood Pressure : */* mmHG Vent. Rate : 77 BPM Atrial Rate : 77 BPM P-R Int : 142 ms QRS Dur : 70 ms QT Int : 402 ms P-R-T Axes : 34 -3 23 degrees QTcB Int : 454 ms Normal sinus rhythm Cannot rule out Anterior infarct (cited on or before 15-May-2022) Abnormal ECG When compared with ECG of 22-Dec-2024 13:57, Sinus rhythm has replaced Junctional rhythm Nonspecific T wave abnormality now evident in Anterior leads QT has shortened Referred By: Nela Moore Electronically Signed By: Dieter Cook
[2024-12-22 14:16] LABS: MANUAL DIFF FLAG NO
[2024-12-22 14:19] LABS: Hematocrit 38.0 % (37.0-47.0); Hemoglobin 13.4 g/dl (12.0-16.0); Imm Gran Abs Auto 0.03 X10*3/uL (0.00-0.03); Imm Gran Pct Auto 0.3 % (0.0-0.4); Lymphocytes Absolute Auto 4.3 X10*3/uL (1.2-4.9); Mean Corpuscular HGB Conc 35.3 g/dl (31.0-35.0); Mean Corpuscular Hemoglobin 32.4 pg (27.0-33.0); Mean Corpuscular Volume 91.8 fL (80.0-98.0); NRBC Abs Auto 0.000 X10*3/uL (0.0-0.012); NRBC Pct Auto 0.0 /100WBC (0.0-0.2); Platelet Count 315 X10*3/uL (160-400); Red Blood Count 4.14 X10*6/uL (4.20-5.50); White Blood Count 9.2 X10*3/uL (4.8-10.8)
[2024-12-22] MEDS: Magnesium Sulfate/H2O 2 GM/50 ML PIGGYBACK IV (14:25)
--- NOTE | 2024-12-22 14:33 | ED_ITS ---
HPI - Syncope General Chief Complaint: Dyspnea Stated Complaint: SOB Time Seen by Provider: 12/22/24 13:56 Source: patient, family and old records reviewed Mode of arrival: other Limitations: no limitations History of Present Illness ED Provider: SUSHANT HPI narrative: 49 yo female with PMH of depression, migraines, rheumatoid arthritis on plaquenil with ILD on 1L supplemental O2, chronic tachycardia - says she felt normal today and has been doing well. She was doing a 6 min walk today her O2 was taken off and she made it about 50 yards in. She made a noise and was caught by staff no headstrike. She had normal O2 at 100%, she had no preceding chest pain/sob. They gave her epi but no obvious allergy and no seizure activity noted. The patient states she did not have LOC and remembers hearing panicked voices. 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) Description of event: other Prodromal symptoms: none Witnessed: Yes - by Bystander Context: during exertion Injuries sustained associated with event: none Current symptoms: back to baseline Treatments prior to arrival: other (IM epi) Related Data Home Medications ?Medication ?Instructions ?Recorded ?Confirmed hydroxychloroquine 200 mg tablet 200 mg PO BID 2 08/18/24 meloxicam 15 mg tablet 15 mg PO DAILY 07/28/2308/09 diclofenac sodium 50 mg 50 mg PO BID 12/18/23 tablet,delayed release omeprazole 40 mg capsule,delayed 40 mg PO DAILY 08/18/24 release gabapentin 100 mg capsule 100 mg PO BID 09/19/24 fluoxetine 10 mg capsule 30 mg PO QAM 12/22/24 zolpidem 5 mg tablet 5 mg PO BEDTIME PRN 12/22/24 Previous Rx's ?Medication ?Instructions ?Recorded cholecalciferol (vitamin D3) 50 50 mcg PO DAILY #90 ca ps 03/31/ mcg (2,000 unit) capsule hydrocortisone 2.5 % topical cream 1 appl OR BID-QID P RN hemorrhoids 05/27/23 with perineal applicator #30 grams (Proctosol HC) sumatriptan succinate 25 mg tablet 25 mg PO Q2-4H PRN migraine 11/07/23 headache 30 days #9 tabs albuterol sulfate 2.5 mg/3 mL 2.5 mg (3 mL) inhalation Q4-6H PRN 12/28/23 (0.083 %) solution for nebulization shortness of breat h or wheezing #180 mL bisacodyl 5 mg tablet,delayed 10 mg (2 x 5 mg) PO BEDT AYAH #180 06/14/24 release (Dulcolax (bisacodyl)) tabs sucralfate 1 gram tablet 1 g PO BEDTIME #90 tabs 06/11 06/04 albuterol sulfate 90 mcg/actuation 2 puff inhalation Q 6H PRN 08/07/24 aerosol inhaler (Ventolin HFA) shortness of breath or wheezing 30 days #6.7 grams budesonide-formoterol HFA 160 2 puff inhalation Q12H # 10.2 grams 08/08/24 mcg-4.5 mcg/actuation aerosol inhaler (Symbicort) cholecalciferol (vitamin D3) 50 50 mcg PO DAILY vit d deficiency 08/18/24 mcg (2,000 unit) capsule #90 caps thiamine HCl (vitamin B1) 100 mg 100 mg PO DAILY #90 t abs 08/31/24 tablet montelukast 10 mg tablet 10 mg PO DAILY #30 tabs 08/11 Allergies Allergy/AdvReac Type Severity Reaction Status Date / Time No Known Allergies Allergy Verified 12/22/24 14:02 Review of Systems 2 Review of Systems: Constitutional : No Fever, No Chills, No Fatigue ENT/Mouth : No sore throat, No Rhinorrhea Eyes: No Eye Pain, No Swelling, No Redness Cardiovascular : No Chest Pain, No SOB, No Dyspnea on Exertion Respiratory : No Cough, No Sputum Gastrointestinal : No Nausea, No Vomiting, No Diarrhea, No abdominal Pain Genitourinary : No Dysuria, No Urinary Frequency, No Hematuria, Musculoskeletal : No joint pain, No Myalgias, No Joint Swelling Skin : No Skin Lesions, No rash Neuro : No Weakness, No Numbness, No Dizziness, no Headache Psych : No Anxiety/Panic, No Depression All other systems reviewed and are negative [facility] Past Medical History Attestation statement: The following information was validated with the patient. Source: old records reviewed Medical History Multiple pulmonary nodules Interstitial lung disease Thiamine deficiency Depression H/O degenerative disc disease Hyperlipidemia Vitamin D deficiency Migraines Sessile serrated polyp of colon Abdominal pain Obesity (BMI 30-39.9) Osteoarthritis of right ankle Allergic rhinitis GERD (gastroesophageal reflux disease) Asthma Rheumatoid arthritis Surgical History History of colonoscopy History of esophagogastroduodenoscopy (EGD) Hx laparoscopic cholecystectomy (~09/2018) History of total left hip arthroplasty Hx of tubal ligation H/O section Hx of laparoscopic gastric banding Family History Family History Father Diabetes mellitus Hypertension Maternal Aunt Breast cancer Mother CAD (coronary artery disease) Diabetes mellitus Sister No problems noted. Brother No problems noted. Brother No problems noted. Brother No problems noted. Son No problems noted. Daughter Hypertension Asthma Daughter Obesity ADHD Social History Social History Housing: House Alcohol intake: current Alcohol intake frequency: holidays/special occasions only Alcohol type: beer, wine and hard liquor Patient Tobacco Use Status: Never used Tobacco e-Cigarette/Vaping Use: Never Used Second Hand Smoke Exposure: Yes Advance Directives: No Advance Directives Information Provided: Yes Do you have a plan to hurt others: No Plan service: No Current occupational status: disabled Cognitive needs: No Hearing needs: No Vision needs: Yes Physical Exam 2 Vital Signs: Vital Signs: Last Vital Signs Temp 98.4 F 12/22/24 13:55 Pulse 75 12/22/24 16:25 Resp 16 12/22/24 16:25 BP 134/77 12/22/24 16:25 Pulse Ox 96 12/22/24 16:25 O2 Del Method Nasal Cannula 12/22/24 16:25 O2 Flow Rate 1 12/22/24 16:25 Oxygen Flow Rate 2 12/22/24 13:55 BMI result Body Mass Index 34.3 Appearance: Alert. Oriented X3. shaking mild acute distress. Eyes: Pupils equal, round and reactive to light. ENT: Pharynx normal. no swelling no stridor Neck: Normal inspection. Neck supple. CVS: tachycardic heart rate and rhythm. Pulses normal. Respiratory: No respiratory distress. Breath sounds normal. Abdomen: Soft and nontender. Skin: Skin warm and dry. Normal skin color. Extremities: No lower extremity edema. No calf ttp Neuro: Oriented X 3. No motor deficit. No sensory deficit. CN2-12 intact Medications Administered Discontinued Medications Generic Name Dose Route Start Last Admin Trade Name Joseq PRN Reason Stop Dose Admin Magnesium Sulfate 2 gm in 50 mls @ 25 mls/hr 12/22/24 14:17 12/22/24 16:38 Magnesium Sulfate/H2o IV 12/22/24 16:16 Infused ONCE ONE Infusion Potassium Chloride 20 meq 12/22/24 15:16 12/22/24 15:21 Potassium Chloride Er 20 Meq Tab.Er.Prt PO 12/22/24 15:17 20 meq ONCE ONE Administration Medical Decision Making Medical Decision Making [facility] Narrative: 49 yo female with PMH of depression, migraines, rheumatoid arthritis on plaquenil with ILD on 1L supplemental O2, chronic tachycardia here with near syncope vs collapse event without a prodrome, seizure activity and no postictal state. She has had no preceding CP/SOB she was never hypoxic during event. On arrival qtc prolonged could have been arrhythmia IV magnesium ordered, oral K to get her to 4.0. Will repeat EKG but will admit has no other symptoms to suggest ACS or VTE. Differential Diagnosis Differential Diagnoses: The differential diagnosis associated with the presentation includes arrhythmia, seizure though remembers event, abnormal lytes, no CP/SOB to suggest ACS/VTE Admission/Observation Consideration of admission/observation: Escalation of care including admission/observation considered given event with qtc would admit for overnight tele Consult Healthcare Provider Management of the patient was discussed with: Hospitalist (will admit) Lab Data [facility] Lab Attestation statement: I reviewed the patient's lab results. 12/22/24 14:12 12/22/24 14:12 Labs: Lab Results 12/22/24 12/22/24 12/22/24 Range/Units 13:54 14:12 16:04 WBC 9.2 (4.8-10.8) X10*3/uL RBC 4.14 L (4.20-5.50) X10*6/uL Hgb 13.4 (12.0-16.0) g/dl Hct 38.0 (37.0-47.0) % MCV 91.8 (80.0-98.0) fL MCH 32.4 (27.0-33.0) pg MCHC 35.3 H (31.0-35.0) g/dl RDW 12.9 (11.0-16.0) % Plt Count 315 (160-400) X10*3/uL MPV 10.0 (9.4-12.3) fL Immature Gran % (Auto) 0.3 (0.0-0.4) % Neut % (Auto) 43.2 L (45-73) % Lymph % (Auto) 47.2 H (20-40) % [place] % (Auto) 7.0 (2-11) % Eos % (Auto) 1.4 (0-4) % Baso % (Auto) 0.9 (0-2) % Lymph # (Auto) 4.3 (1.2-4.9) X10*3/uL [place] # (Auto) 0.6 (0.1-1.2) X10*3/uL Eos # (Auto) 0.1 (0.0-0.4) X10*3/uL Baso # (Auto) 0.1 (0.0-0.2) X10*3/uL Abs Immat Gran (auto) 0.03 (0.00-0.03) X10*3/uL Absolute Neuts (auto) 4.0 (2.0-8.3) x10*3/uL Absolute Nucleated RBC 0.000 (0.0-0.012) X10*3/uL Nucleated RBC % (auto) 0.0 (0.0-0.2) /100WBC Sodium 139 (135-145) mmol/L Potassium 3.5 (3.3-5.1) mmol/L Chloride 108 (96-108) mmol/L Carbon Dioxide 20 L (22-29) mmol/L Anion Gap 15 (12-20) BUN 14 (9-16) mg/dL Creatinine 0.62 (0.5-1.4) mg/dL Estim Creat Clear Calc 101.4 Estimated GFR > 60 POC Glucose 117 H (60-115) mg/dL Random Glucose 112 (60-115) mg/dL Calcium 9.3 (8.4-10.2) mg/dL Magnesium 1.7 (1.6-2.6) mg/dL Total Bilirubin 0.4 (0.0-1.0) mg/dL Direct Bilirubin 0.2 (0.0-0.5) mg/dL AST 28 (5-31) U/L ALT 19 (0-31) U/L Alkaline Phosphatase 60 (39-117) U/L Troponin I High Sens < 2.7 < 2.7 (<3.5-17.0) ng/L B-Natriuretic Peptide 36 (<100) pg/mL Total Protein 7.2 (6.5-8.0) g/dL Albumin 4.4 (3.5-5.0) g/dL Independent Interpretation I performed an independent interpretation of an: EKG Interpretation: Rate: 109 Rhythm: sinus tach with PVCs [employer]: left Normal P waves. Normal LIBAN. Normal QRS complex. ST T wave : no RAGHU, nonspecific ST T wave changes qTC: 646 prior studies: prolonged qtc from baseline she has been around 500 The study has been interpreted contemporaneously by me. EKG #2 Rate: 77 Rhythm: NSR [employer]: left Normal P waves. Normal LIBAN. Normal QRS complex. ST T wave : no RAGHU, nonspecific ST T wave changes qTC: 454 prior studies: qtc improved The study has been interpreted contemporaneously by me. . Independent Historian Clinical information obtained from an independent historian. History obtained from or confirmed by: Other External Record Review External record reviewed: Outpatient record Critical Care Time Critical Care Time Critical Care Time: Yes Total Critical Care Time: 45 Attestation: repeat EKGs and tele monitoring, repeat labs, IV magnesium for prolonged qtc with arrhthymia potentional, admission and review of records I attest to this time spent taking care of the patient Discharge Plan Discharge Clinical Impression: Prolonged QT interval, Near syncope Patient Disposition: Admitted As Inpatient Print Language: Trinidadian
[2024-12-22 14:34] LABS: Alanine Aminotransferase 19 U/L (0-31); Albumin Level 4.4 g/dL (3.5-5.0); Alkaline Phosphatase 60 U/L (39-117); Anion Gap 15 (12-20); Aspartate Amino Transferase 28 U/L (5-31); Blood Urea Nitrogen 14 mg/dL (9-16); Calcium 9.3 mg/dL (8.4-10.2); Carbon Dioxide 20 mmol/L (22-29); Chloride 108 mmol/L (96-108); Creatinine Clr Calc Pharmacy 101.4; Estimated Glomerular Filt Rate > 60; Magnesium 1.7 mg/dL (1.6-2.6); Potassium 3.5 mmol/L (3.3-5.1); Sodium 139 mmol/L (135-145); Total Protein 7.2 g/dL (6.5-8.0)
[2024-12-22 14:40] LABS: B Type Natriuretic Peptide 36 pg/mL (<100)
[2024-12-22 14:50] LABS: Glucose, Whole Blood 117 mg/dL (60-115)
[2024-12-22 14:53] LABS: Troponin-I High Sensitivity < 2.7 ng/L (<3.5-17.0)
[2024-12-22] MEDS: Potassium Chloride ER 20 MEQ TAB.ER.PRT PO (15:21)
[2024-12-22 16:25] VITALS: BP 134/77; PULSE 75; RESP 16; O2SAT 96
[2024-12-22 16:30] LABS: Troponin-I High Sensitivity < 2.7 ng/L (<3.5-17.0)
--- NOTE | 2024-12-22 17:29 | P.HPHOSP_ITS ---
History of Present Illness Date of Service: 12/22/24 Chief Complaint: syncope 49F PMH chronic hypoxic respiratory failure due to interstitial lung disease due to rheumatoid arthritis on 1 L home O2, mood disorder, chronic migraines, chronic tachycardia presented with syncope. Patient was doing a 6 minute walk test and pulmonary clinic with oxygen taken off. After about 50 yd she made a noise and appeared to have lost consciousness was caught by staff no trauma. Maintained saturation of 100%. Denies any chest pain or palpitations. Was given epinephrine IM. In ED 1st EKG showed prolonged QTc of 646 and frequent PVCs. Potassium was 3.5, magnesium 1.7, was given supplement repeat EKG showed normal sinus rhythm of 77 with QTc 454. Patient currently asymptomatic. Review of Systems 2 Review of Systems: Yes all other systems are reviewed and are negative [facility] Medical History Multiple pulmonary nodules Interstitial lung disease Thiamine deficiency Depression H/O degenerative disc disease Hyperlipidemia Vitamin D deficiency Migraines Sessile serrated polyp of colon Abdominal pain Obesity (BMI 30-39.9) Osteoarthritis of right ankle Allergic rhinitis GERD (gastroesophageal reflux disease) Asthma Rheumatoid arthritis Family History Father Diabetes mellitus Hypertension Maternal Aunt Breast cancer Mother CAD (coronary artery disease) Diabetes mellitus Sister No problems noted. Brother No problems noted. Brother No problems noted. Brother No problems noted. Son No problems noted. Daughter Hypertension Asthma Daughter Obesity ADHD Surgical History History of colonoscopy History of esophagogastroduodenoscopy (EGD) Hx laparoscopic cholecystectomy (~09/2018) History of total left hip arthroplasty Hx of tubal ligation H/O section Hx of laparoscopic gastric banding Social History Housing: House Alcohol intake: current Alcohol intake frequency: holidays/special occasions only Alcohol type: beer, wine and hard liquor Patient Tobacco Use Status: Never used Tobacco e-Cigarette/Vaping Use: Never Used Second Hand Smoke Exposure: Yes Advance Directives: No Advance Directives Information Provided: Yes Do you have a plan to hurt others: No Plan service: No Current occupational status: disabled Cognitive needs: No Hearing needs: No Vision needs: Yes Meds Allergies Allergy/AdvReac Type Severity Reaction Status Date / Time No Known Allergies Allergy Verified 12/22/24 14:02 Active Medications: Current Medications Acetaminophen (Acetaminophen 325 Mg Tablet) 650 mg PO Q6H PRN PRN Reason: Pain, Mild 1-3,fever,headache Calcium Carbonate (Calcium Carbonate 750 Mg Tab.Chew) 750 mg PO Q4H PRN PRN Reason: Heartburn Magnesium Hydroxide (Milk Of Magnesia 30 Ml Oral.Susp) 30 ml PO DAILY PRN PRN Reason: Constipation Melatonin (Melatonin 3 Mg Tablet) 6 mg PO BEDTIME PRN PRN Reason: Insomnia Sodium Chloride (0.9 % Sodium Chloride Flush 3 Ml Syringe) 3 ml IVFLUSH [facility] Medications ?Medication ?Instructions ?Recorded ?Confirmed ?Last Taken ?Type hydroxychloroquine 200 mg tablet 200 mg PO BID 2 08/18/24 Unknown History meloxicam 15 mg tablet 15 mg PO DAILY 07/28/2308/09 Unknown History diclofenac sodium 50 mg 50 mg PO BID 12/18/23 Unknown History tablet,delayed release omeprazole 40 mg capsule,delayed 40 mg PO DAILY 08/18/24 Unknown History release fluoxetine 10 mg capsule 30 mg PO QAM 12/22/24 Unkno wn History gabapentin 100 mg capsule 200 mg PO BID 12/22/24 Unkn own History zolpidem 5 mg tablet 5 mg PO BEDTIME PRN 12/22/24 Unknown History Physical Exam 2 Vital Signs and Narrative: Vital Signs: Last Vital Signs Temp 98.4 F 12/22/24 13:55 Pulse 75 12/22/24 16:25 Resp 16 12/22/24 16:25 BP 134/77 12/22/24 16:25 Pulse Ox 96 12/22/24 16:25 O2 Del Method Nasal Cannula 12/22/24 16:25 O2 Flow Rate 1 12/22/24 16:25 Oxygen Flow Rate 2 12/22/24 13:55 BMI result Body Mass Index 34.3 General: AO X 3, no acute distress Resp: CTA bilateral, no accessory muscles used CVS: S1,S2,RRR GI: soft, non tender, non distended Neuro: motor grossly intact, alert Psych: appropriate affect, appropriate insight Results Labs 12/22/24 14:12 12/22/24 14:12 Labs: Laboratory Results - last 24 hr 12/22/24 12/22/24 13:54 14:12 MCV 91.8 MCH 32.4 MCHC 35.3 H RDW 12.9 Plt Count 315 MPV 10.0 Immature Gran % (Auto) 0.3 Neut % (Auto) 43.2 L Lymph % (Auto) 47.2 H [place] % (Auto) 7.0 Eos % (Auto) 1.4 Baso % (Auto) 0.9 Lymph # (Auto) 4.3 [place] # (Auto) 0.6 Eos # (Auto) 0.1 Baso # (Auto) 0.1 Abs Immat Gran (auto) 0.03 Absolute Neuts (auto) 4.0 Absolute Nucleated RBC 0.000 Nucleated RBC % (auto) 0.0 Anion Gap 15 Estim Creat Clear Calc 101.4 Estimated GFR > 60 POC Glucose 117 H Random Glucose 112 Calcium 9.3 Magnesium 1.7 Total Bilirubin 0.4 Direct Bilirubin 0.2 AST 28 ALT 19 Alkaline Phosphatase 60 B-Natriuretic Peptide 36 Total Protein 7.2 Albumin 4.4 Assessment and Plan (1) Near syncope: Status: Acute Plan 49F PMH chronic hypoxic respiratory failure due to interstitial lung disease due to rheumatoid arthritis on 1 L home O2, mood disorder, chronic migraines, chronic tachycardia presented with syncope syncope with concern due to prolonged qt and pvc though may be due to epinephrine monitor on tele, cardio eval chornic hypoxic resp failrue due to RA/ILD on 1L o2 will hold plaquenil for now due to qt prolongation mood disorder will hold fluexitine dvt prophylaxis - lovenox full code Quality Stroke Does the patient have a stroke diagnosis?: No VTE Prior VTE?: No VTE Risk Level:: Medical - moderate - high VTE Device Contraindication: Treatment Not Indicated VTE Drug Contraindication: N/A - Med Ordered
--- NOTE | 2024-12-22 18:13 | PHA.MEDREC ---
Addendum entered by Ngoc López RPh 12/22/24 18:23: reviewed by [facility]. Original Note: Pharmacy Consult ? Medication Reconciliation Pharmacy has completed the medication reconciliation. Spoke to patient to confirm med list. Patient states she is not taking Meloxicam 15 mg, Montelukast 10 mg, Omeprazole 40 mg, and sumatriptan 25 mg. Patient states she last had her medications yesterday.
[2024-12-22 18:32] VITALS: BP 118/86; PULSE 81; RESP 16; O2SAT 97
[2024-12-22 19:25] VITALS: BP 103/73; PULSE 73; RESP 16; TEMP 36.9; O2SAT 98
--- NOTE | 2024-12-22 19:31 | PC.NURSE ---
assumed care of pt. Pt on 1L and 02 at 98%, respirations even and unlabored.
[2024-12-22 22:11] VITALS: BP 123/84; PULSE 69; RESP 16; TEMP 36.8; O2SAT 92
--- NOTE | 2024-12-22 22:14 | PC.NURSE ---
pt medicated per MAR, pt states she is feeling okay just tired. Lights turned off and pt respirations are even and unlabored.
--- NOTE | 2024-12-23 | ECG_ITS ---
Test Reason : ALLERGIC REACTION Blood Pressure : */* mmHG Vent. Rate : 109 BPM Atrial Rate : * BPM P-R Int : * ms QRS Dur : 70 ms QT Int : 370 ms P-R-T Axes : * 1 14 degrees QTcB Int : 499 ms Sinus tachycardia with frequent Premature ventricular complexes Poor R wave porgression Prolonged QT Abnormal ECG When compared with ECG of 15-May-2022 10:07, Vent. rate has increased by 36 bpm QT has lengthened Referred By: Malvin Hess Electronically Signed By: Dieter Cook
[2024-12-23 03:04] VITALS: BP 118/76; PULSE 68; RESP 17; TEMP 36.7; O2SAT 98
[2024-12-23 04:08] LABS: Hematocrit 36.1 % (37.0-47.0); Hemoglobin 13.2 g/dl (12.0-16.0); Mean Corpuscular HGB Conc 36.6 g/dl (31.0-35.0); Mean Corpuscular Hemoglobin 33.1 pg (27.0-33.0); Mean Corpuscular Volume 90.5 fL (80.0-98.0); NRBC Abs Auto 0.000 X10*3/uL (0.0-0.012); NRBC Pct Auto 0.0 /100WBC (0.0-0.2); Platelet Count 270 X10*3/uL (160-400); Red Blood Count 3.99 X10*6/uL (4.20-5.50); White Blood Count 5.9 X10*3/uL (4.8-10.8)
[2024-12-23 04:22] LABS: Anion Gap 15 (12-20); Blood Urea Nitrogen 14 mg/dL (9-16); Calcium 9.5 mg/dL (8.4-10.2); Carbon Dioxide 23 mmol/L (22-29); Chloride 105 mmol/L (96-108); Creatinine Clr Calc Pharmacy 108.4; Estimated Glomerular Filt Rate > 60; Magnesium 1.8 mg/dL (1.6-2.6); Potassium 3.8 mmol/L (3.3-5.1); Sodium 139 mmol/L (135-145)
[2024-12-23 08:15] VITALS: BP 116/82; PULSE 88; RESP 18; TEMP 36.7; O2SAT 98
--- NOTE | 2024-12-23 08:17 | PC.NURSE ---
Pt is resting quietly. NAD. LS CTA. denies pain. states she's on 1L at baseline but not sure what her pulmonary diagnosis is. Awaits inhaler.
--- NOTE | 2024-12-23 08:36 | ECG_ITS ---
Test Reason : dyspnea Blood Pressure : */* mmHG Vent. Rate : 67 BPM Atrial Rate : 67 BPM P-R Int : 146 ms QRS Dur : 66 ms QT Int : 402 ms P-R-T Axes : 40 10 18 degrees QTcB Int : 424 ms Normal sinus rhythm Nonspecific T wave abnormality Abnormal ECG When compared with ECG of 22-Dec-2024 16:48, No significant change was found Referred By: Malvin Hess Electronically Signed By: Dieter Cook
[2024-12-23] MEDS: Fluticasone/Vilanterol 200/25 BLST.W.DEV 1 PUFF INHALE (08:47)
--- NOTE | 2024-12-23 10:04 | PM.CNCAR ---
History of Present Illness History of Present Illness Date of Service: 12/23/24 Chief complaint: syncope Narrative: [age] year female with interstitial lung disease secondary to rheumatoid arthritis who was in the pulmonology office we are 6 minute walk test off oxygen was done. While walking she passed out. She also made some sounds before passing out and probably they thought that she is having stridor and she was given epinephrine. She came to the emergency department tachycardic likely related to epinephrine. Her 1st EKG was read as prolonged QT interval of more than 600. I have reviewed the EKG and in fact her QT interval is less than 500. She previously had some QT prolongation on her EKGs and has borderline electrolyte problems as well as has been on fluoxetine for depression. No torsades was noticed. She is saying that she uses oxygen 1 L per minute all the time and occasionally increases this to to were more when she is ambulating. She has tried to walk inside the house without oxygen for short distances but does get some dizziness when she walks. She had echocardiography in May which did not show any signs of pulmonary hypertension. [facility] Past Medical History Medical History Multiple pulmonary nodules Interstitial lung disease Thiamine deficiency Depression H/O degenerative disc disease Hyperlipidemia Vitamin D deficiency Migraines Sessile serrated polyp of colon Abdominal pain Obesity (BMI 30-39.9) Osteoarthritis of right ankle Allergic rhinitis GERD (gastroesophageal reflux disease) Asthma Rheumatoid arthritis Family History Family History Father Diabetes mellitus Hypertension Maternal Aunt Breast cancer Mother CAD (coronary artery disease) Diabetes mellitus Sister No problems noted. Brother No problems noted. Brother No problems noted. Brother No problems noted. Son No problems noted. Daughter Hypertension Asthma Daughter Obesity ADHD Surgical History Surgical History History of colonoscopy History of esophagogastroduodenoscopy (EGD) Hx laparoscopic cholecystectomy (~09/2018) History of total left hip arthroplasty Hx of tubal ligation H/O section Hx of laparoscopic gastric banding Social History Social History Housing: House Alcohol intake: current Alcohol intake frequency: holidays/special occasions only Alcohol type: beer, wine and hard liquor Patient Tobacco Use Status: Never used Tobacco e-Cigarette/Vaping Use: Never Used Second Hand Smoke Exposure: Yes Advance Directives: No Advance Directives Information Provided: Yes Do you have a plan to hurt others: No Plan service: No Current occupational status: disabled Cognitive needs: No Hearing needs: No Vision needs: Yes Meds Allergies Allergy/AdvReac Type Severity Reaction Status Date / Time No Known Allergies Allergy Verified 12/22/24 14:02 Active Medications: Current Medications Acetaminophen (Acetaminophen 325 Mg Tablet) 650 mg PO Q6H PRN PRN Reason: Pain, Mild 1-3,fever,headache Albuterol Sulfate (Albuterol Sulfate 90 Mcg 8 Gm Inhaler) 2 puff INHALE Q6H PRN PRN Reason: shortness of breath or wheezing Albuterol Sulfate (Albuterol Sulfate (0.083%) 2.5 Mg/3 Ml Vial.Neb) 2.5 mg INHALE Q4H PRN PRN Reason: shortness of breath or wheezing Bisacodyl (Bisacodyl 5 Mg Tablet.Dr) 10 mg PO BEDTIME [facility] Last Admin: 12/22/24 22:13 Dose: 10 mg Calcium Carbonate (Calcium Carbonate 750 Mg Tab.Chew) 750 mg PO Q4H PRN PRN Reason: Heartburn Enoxaparin Sodium (Enoxaparin Sodium 40 Mg/0.4 Ml Syringe) 40 mg SUBCUT Q24H [facility] Last Admin: 12/23/24 09:40 Dose: 40 mg Fluticasone/Vilanterol (Fluticasone/Vilanterol 200/25 Blst.W.Dev) 1 puff INHALE RDAILY [facility] Last Admin: 12/23/24 08:47 Dose: 1 puff Gabapentin (Gabapentin 100 Mg Capsule) 200 mg PO BID [facility] Last Admin: 12/23/24 08:12 Dose: 200 mg Magnesium Hydroxide (Milk Of Magnesia 30 Ml Oral.Susp) 30 ml PO DAILY PRN PRN Reason: Constipation Melatonin (Melatonin 3 Mg Tablet) 6 mg PO BEDTIME PRN PRN Reason: Insomnia Sodium Chloride (0.9 % Sodium Chloride Flush 3 Ml Syringe) 3 ml IVFLUSH QSHIFT [facility] Last Admin: 12/23/24 08:12 Dose: Not Given Sucralfate (Sucralfate 1 Gm Tablet) 1 gm PO BEDTIME [facility] Last Admin: 12/22/24 22:12 Dose: 1 gm Thiamine HCl (Thiamine Hcl 100 Mg Tablet) 100 mg PO DAILY [facility] Last Admin: 12/23/24 08:12 Dose: 100 mg Vitamin D (Cholecalciferol (Vitamin D3) 25 Mcg Tablet) 50 mcg PO DAILY [facility] Last Admin: 12/23/24 08:12 Dose: 50 mcg Zolpidem Tartrate (Zolpidem Tartrate 5 Mg Tablet) 5 mg PO BEDTIME PRN PRN Reason: Sleep Home Medications ?Medication ?Instructions ?Recorded ?Confirmed ?Last Taken ?Type hydroxychloroquine 200 mg tablet 200 mg PO BID 10/31/21 12/22/24 12/21/24 History diclofenac sodium 50 mg 50 mg PO BID 12/18/23 12/22/24 12/21/24 History tablet,delayed release fluoxetine 10 mg capsule 30 mg PO DAILY 12/22/24 12/22/24 12/21/24 History gabapentin 100 mg capsule 200 mg PO BID 12/22/24 12/22/24 12/21/24 History zolpidem 5 mg tablet 5 mg PO BEDTIME PRN Sleep 12/22/24 12/22/24 Unknown History Physical Exam Vital Signs: Vital Signs: Last Vital Signs Temp 98.1 F 12/23/24 08:15 Pulse 88 12/23/24 08:15 Resp 18 12/23/24 08:15 BP 116/82 12/23/24 08:15 Pulse Ox 98 12/23/24 08:15 O2 Del Method Nasal Cannula 12/23/24 08:15 O2 Flow Rate 1 12/23/24 08:15 Oxygen Flow Rate 2 12/22/24 13:55 BMI result Body Mass Index 34.3 GENERAL APPEARANCE: in no acute distress, pleasant. NECK: no carotid bruit, no jugular venous distention. SKIN: no suspicious lesions, warm and dry. HEART: no murmurs, regular rate and rhythm. LUNGS: clear to auscultation bilaterally. ABDOMEN: soft, nontender. EXTREMITIES: no edema. PERIPHERAL PULSES: equal. NEUROLOGIC: No gross deficits, AAO X 3 Objective Labs and Meds 12/23/24 03:56 12/23/24 03:56 Lab results: Laboratory Results - last 24 hr 12/22/24 12/22/24 12/22/24 13:54 14:12 16:04 WBC 9.2 RBC 4.14 L Hgb 13.4 Hct 38.0 MCV 91.8 MCH 32.4 MCHC 35.3 H RDW 12.9 Plt Count 315 MPV 10.0 Immature Gran % (Auto) 0.3 Neut % (Auto) 43.2 L Lymph % (Auto) 47.2 H [place] % (Auto) 7.0 Eos % (Auto) 1.4 Baso % (Auto) 0.9 Lymph # (Auto) 4.3 [place] # (Auto) 0.6 Eos # (Auto) 0.1 Baso # (Auto) 0.1 Abs Immat Gran (auto) 0.03 Absolute Neuts (auto) 4.0 Absolute Nucleated RBC 0.000 Nucleated RBC % (auto) 0.0 Sodium 139 Potassium 3.5 Chloride 108 Carbon Dioxide 20 L Anion Gap 15 BUN 14 Creatinine 0.62 Estim Creat Clear Calc 101.4 Estimated GFR > 60 POC Glucose 117 H Random Glucose 112 Calcium 9.3 Magnesium 1.7 Total Bilirubin 0.4 Direct Bilirubin 0.2 AST 28 ALT 19 Alkaline Phosphatase 60 Troponin I High Sens < 2.7 < 2.7 B-Natriuretic Peptide 36 Total Protein 7.2 Albumin 4.4 12/23/24 03:56 WBC 5.9 RBC 3.99 L Hgb 13.2 Hct 36.1 L MCV 90.5 MCH 33.1 H MCHC 36.6 H RDW 12.7 Plt Count 270 MPV 10.0 Immature Gran % (Auto) Neut % (Auto) Lymph % (Auto) [place] % (Auto) Eos % (Auto) Baso % (Auto) Lymph # (Auto) [place] # (Auto) Eos # (Auto) Baso # (Auto) Abs Immat Gran (auto) Absolute Neuts (auto) Absolute Nucleated RBC 0.000 Nucleated RBC % (auto) 0.0 Sodium 139 Potassium 3.8 Chloride 105 Carbon Dioxide 23 Anion Gap 15 BUN 14 Creatinine 0.58 Estim Creat Clear Calc 108.4 Estimated GFR > 60 POC Glucose Random Glucose 104 Calcium 9.5 Magnesium 1.8 Total Bilirubin Direct Bilirubin AST ALT Alkaline Phosphatase Troponin I High Sens B-Natriuretic Peptide Total Protein Albumin Assessment and Plan (1) Interstitial lung disease: Status: Acute (2) Near syncope: Status: Acute Plan Near syncope in a 49-year-old lady with interstitial lung disease on supplemental oxygen who was walking without oxygen for a 6 minute walk test. It is possible that she passed out from hypoxia although the documentation was that she had normal saturations at that time. She was also given some epinephrine for unclear reasons but made some groaning sounds before she passed out and probably it was felt that she has stridor but unclear why epinephrine was given. With interstitial lung disease pulmonary hypertension can be a possibility and with hypoxia PA pressures rise and can lead to dizziness and syncope. I will repeat echocardiogram to reassess the PA pressures. If normal then she does not need any inpatient workup currently. Thank you for allowing me to participate in the care of your patient. Please feel free to contact me if you have any questions. Procedures Date of Service Date of Service: 12/23/24
--- NOTE | 2024-12-23 10:47 | MHC.CM.PN ---
CM met with Patient at bedside, in the ED. Patient lives in a house with her Adult Son, 2 adult Daughters and her Grandson. Home/resume home O2 from [employer] is the goal and CM has initiated and will follow for dc planning. PCP is Dr. Emerald Chase and Daughter will transport to home at dc.
--- NOTE | 2024-12-23 11:15 | P.PNIM_ITS ---
Subjective Subjective Date of Service: 12/23/24 Interval History: no complaints Physical Exam 2 Exam: Exam: General: AO X 3, no acute distress Resp: CTA bilateral, no accessory muscles used CVS: S1,S2,RRR GI: soft, non tender, non distended Neuro: motor grossly intact, alert Psych: appropriate affect, appropriate insight Vital Signs: Vital Signs: Last Vital Signs Temp 98.1 F 12/23/24 08:15 Pulse 88 12/23/24 08:15 Resp 18 12/23/24 08:15 BP 116/82 12/23/24 08:15 Pulse Ox 98 12/23/24 08:15 O2 Del Method Nasal Cannula 12/23/24 08:15 O2 Flow Rate 1 12/23/24 08:15 Oxygen Flow Rate 2 12/22/24 13:55 BMI result Body Mass Index 34.3 Objective Data Active Medications Acetaminophen (Acetaminophen 325 Mg Tablet) 650 mg PO Q6H PRN PRN Reason: Pain, Mild 1-3,fever,headache Albuterol Sulfate (Albuterol Sulfate 90 Mcg 8 Gm Inhaler) 2 puff INHALE Q6H PRN PRN Reason: shortness of breath or wheezing Albuterol Sulfate (Albuterol Sulfate (0.083%) 2.5 Mg/3 Ml Vial.Neb) 2.5 mg INHALE Q4H PRN PRN Reason: shortness of breath or wheezing Bisacodyl (Bisacodyl 5 Mg Tablet.Dr) 10 mg PO BEDTIME [facility] Last Admin: 12/22/24 22:13 Dose: 10 mg Documented By: INDU Calcium Carbonate (Calcium Carbonate 750 Mg Tab.Chew) 750 mg PO Q4H PRN PRN Reason: Heartburn Enoxaparin Sodium (Enoxaparin Sodium 40 Mg/0.4 Ml Syringe) 40 mg SUBCUT Q24H [facility] Last Admin: 12/23/24 09:40 Dose: 40 mg Documented By: DIANNA Fluticasone/Vilanterol (Fluticasone/Vilanterol 200/25 Blst.W.Dev) 1 puff INHALE RDAILY [facility] Last Admin: 12/23/24 08:47 Dose: 1 puff Documented By: DIANNA Gabapentin (Gabapentin 100 Mg Capsule) 200 mg PO BID [facility] Last Admin: 12/23/24 08:12 Dose: 200 mg Documented By: DIANNA Magnesium Hydroxide (Milk Of Magnesia 30 Ml Oral.Susp) 30 ml PO DAILY PRN PRN Reason: Constipation Melatonin (Melatonin 3 Mg Tablet) 6 mg PO BEDTIME PRN PRN Reason: Insomnia Sodium Chloride (0.9 % Sodium Chloride Flush 3 Ml Syringe) 3 ml IVFLUSH QSHIFT [facility] Last Admin: 12/23/24 08:12 Dose: Not Given Documented By: DIANNA Non-Admin Reason: Med Not Available Sucralfate (Sucralfate 1 Gm Tablet) 1 gm PO BEDTIME [facility] Last Admin: 12/22/24 22:12 Dose: 1 gm Documented By: INDU Thiamine HCl (Thiamine Hcl 100 Mg Tablet) 100 mg PO DAILY [facility] Last Admin: 12/23/24 08:12 Dose: 100 mg Documented By: DIANNA Vitamin D (Cholecalciferol (Vitamin D3) 25 Mcg Tablet) 50 mcg PO DAILY [facility] Last Admin: 12/23/24 08:12 Dose: 50 mcg Documented By: DIANNA Zolpidem Tartrate (Zolpidem Tartrate 5 Mg Tablet) 5 mg PO BEDTIME PRN PRN Reason: Sleep Labs 12/23/24 03:56 12/23/24 03:56 Labs: Laboratory Results - last 24 hr 12/22/24 12/22/24 12/23/24 13:54 14:12 03:56 MCV 91.8 90.5 MCH 32.4 33.1 H MCHC 35.3 H 36.6 H RDW 12.9 12.7 Plt Count 315 270 MPV 10.0 10.0 Immature Gran % (Auto) 0.3 Neut % (Auto) 43.2 L Lymph % (Auto) 47.2 H [place] % (Auto) 7.0 Eos % (Auto) 1.4 Baso % (Auto) 0.9 Lymph # (Auto) 4.3 [place] # (Auto) 0.6 Eos # (Auto) 0.1 Baso # (Auto) 0.1 Abs Immat Gran (auto) 0.03 Absolute Neuts (auto) 4.0 Absolute Nucleated RBC 0.000 0.000 Nucleated RBC % (auto) 0.0 0.0 Anion Gap 15 15 Estim Creat Clear Calc 101.4 108.4 Estimated GFR > 60 > 60 POC Glucose 117 H Random Glucose 112 104 Calcium 9.3 9.5 Magnesium 1.7 1.8 Total Bilirubin 0.4 Direct Bilirubin 0.2 AST 28 ALT 19 Alkaline Phosphatase 60 B-Natriuretic Peptide 36 Total Protein 7.2 Albumin 4.4 Assessment and Plan (1) Near syncope: Status: Acute Plan 49F PMH chronic hypoxic respiratory failure due to interstitial lung disease due to rheumatoid arthritis on 1 L home O2, mood disorder, chronic migraines, chronic tachycardia presented with syncope syncope with concern due to prolonged qt and pvc though may be due to epinephrine cardio appreciated - check echo qt improved, will restart meds chornic hypoxic resp failrue due to RA/ILD on 1L o2 plaquenil mood disorder fluexitine dvt prophylaxis - lovenox full code reason for continued hospitalization:echo pending Quality Stroke Does the patient have a stroke diagnosis?: No VTE Prior VTE?: No VTE Risk Level:: Medical - moderate - high VTE Device Contraindication: Treatment Not Indicated VTE Drug Contraindication: N/A - Med Ordered
--- NOTE | 2024-12-23 11:18 | P.DS_ITS ---
DS: Providers Provider Date of Service: 12/23/24 Date of admission: 12/22/24 17:00 Date of discharge: 12/23/24 Primary care physician: Emerald Steve MD Consults: 12/22/24 17:28 Consult to Cardiology Routine Consulting Provider: [facility] Reason for consultation: syncope, pvcs and qt prolongation on 1st ekg Has provider been notified: Yes DS: Diagnosis Discharge Diagnosis (1) Near syncope: Status: Acute DS: Summary Hospital Course Hospital Course: from initial hpi: 49F PMH chronic hypoxic respiratory failure due to interstitial lung disease due to rheumatoid arthritis on 1 L home O2, mood disorder, chronic migraines, chronic tachycardia presented with syncope. Patient was doing a 6 minute walk test and pulmonary clinic with oxygen taken off. After about 50 yd she made a noise and appeared to have lost consciousness was caught by staff no trauma. Maintained saturation of 100%. Denies any chest pain or palpitations. Was given epinephrine IM. In ED 1st EKG showed prolonged QTc of 646 and frequent PVCs. Potassium was 3.5, magnesium 1.7, was given supplement repeat EKG showed normal sinus rhythm of 77 with QTc 454. Patient currently asymptomatic. hospital course: Patient was admitted for syncope. There was concerned due to initial prolonged QT and PVCs however this quickly normalized. Was seen by Cardiology recommended echocardiogram which was unremarkable patient will be discharged home. For chronic hypoxic respiratory failure due to rheumatoid arthritis and interstitial lung disease on 1 L home O2 remained stable. Was continued on Plaquenil. For mood disorder was continued on fluoxetine. Time Attestation Discharge Coordination Time (in mins): 32 Quality: Safe Use of Opioids Does Pt have an Active Cancer Diagnosis on the Problem List?: No Quality: Stroke Does the patient have a stroke diagnosis?: No Physical Exam Exam: Exam: General: AO X 3, no acute distress Resp: CTA bilateral, no accessory muscles used CVS: S1,S2,RRR GI: soft, non tender, non distended Neuro: motor grossly intact, alert Psych: appropriate affect, appropriate insight Vital Signs: Vital Signs: Last Vital Signs Temp 98.1 F 12/23/24 08:15 Pulse 88 12/23/24 08:15 Resp 18 12/23/24 08:15 BP 116/82 12/23/24 08:15 Pulse Ox 98 12/23/24 08:15 O2 Del Method Nasal Cannula 12/23/24 08:15 O2 Flow Rate 1 12/23/24 08:15 Oxygen Flow Rate 2 12/22/24 13:55 BMI result Body Mass Index 34.3 DS: Data Data Completed and Pending Labs on day of discharge: Laboratory Results - last 24 hr 12/22/24 12/22/24 12/22/24 13:54 14:12 16:04 WBC 9.2 RBC 4.14 L Hgb 13.4 Hct 38.0 MCV 91.8 MCH 32.4 MCHC 35.3 H RDW 12.9 Plt Count 315 MPV 10.0 Immature Gran % (Auto) 0.3 Neut % (Auto) 43.2 L Lymph % (Auto) 47.2 H [place] % (Auto) 7.0 Eos % (Auto) 1.4 Baso % (Auto) 0.9 Lymph # (Auto) 4.3 [place] # (Auto) 0.6 Eos # (Auto) 0.1 Baso # (Auto) 0.1 Abs Immat Gran (auto) 0.03 Absolute Neuts (auto) 4.0 Absolute Nucleated RBC 0.000 Nucleated RBC % (auto) 0.0 Sodium 139 Potassium 3.5 Chloride 108 Carbon Dioxide 20 L Anion Gap 15 BUN 14 Creatinine 0.62 Estim Creat Clear Calc 101.4 Estimated GFR > 60 POC Glucose 117 H Random Glucose 112 Calcium 9.3 Magnesium 1.7 Total Bilirubin 0.4 Direct Bilirubin 0.2 AST 28 ALT 19 Alkaline Phosphatase 60 Troponin I High Sens < 2.7 < 2.7 B-Natriuretic Peptide 36 Total Protein 7.2 Albumin 4.4 12/23/24 03:56 WBC 5.9 RBC 3.99 L Hgb 13.2 Hct 36.1 L MCV 90.5 MCH 33.1 H MCHC 36.6 H RDW 12.7 Plt Count 270 MPV 10.0 Immature Gran % (Auto) Neut % (Auto) Lymph % (Auto) [place] % (Auto) Eos % (Auto) Baso % (Auto) Lymph # (Auto) [place] # (Auto) Eos # (Auto) Baso # (Auto) Abs Immat Gran (auto) Absolute Neuts (auto) Absolute Nucleated RBC 0.000 Nucleated RBC % (auto) 0.0 Sodium 139 Potassium 3.8 Chloride 105 Carbon Dioxide 23 Anion Gap 15 BUN 14 Creatinine 0.58 Estim Creat Clear Calc 108.4 Estimated GFR > 60 POC Glucose Random Glucose 104 Calcium 9.5 Magnesium 1.8 Total Bilirubin Direct Bilirubin AST ALT Alkaline Phosphatase Troponin I High Sens B-Natriuretic Peptide Total Protein Albumin Discharge Plan Discharge Anticipated Discharge Date/Time: 12/23/24 11:17 Patient Disposition: Home, Self-Care Discharge Diagnosis: syncope Referrals: Emerald Perkins MD [Primary Care Provider, Internal Medicine] - 1 Week Discharge Medications: Continued cholecalciferol (vitamin D3) 50 mcg (2,000 unit) capsule 50 mcg PO DAILY Qty: 90 2RF sucralfate 1 gram tablet 1 g PO BEDTIME Qty: 90 1RF albuterol sulfate [Ventolin HFA] 90 mcg/actuation HFA aerosol inhaler 2 puff inhalation Q6H PRN (Reason: shortness of breath or wheezing) 30 Days Qty: 6.7 1RF budesonide-formoterol [Symbicort] 160-4.5 mcg/actuation HFA aerosol inhaler 2 puff inhalation Q12H Qty: 10.2 1RF thiamine HCl (vitamin B1) 100 mg tablet 100 mg PO DAILY Qty: 90 1RF gabapentin 100 mg capsule 200 mg PO BID hydroxychloroquine 200 mg tablet 200 mg PO BID fluoxetine 10 mg capsule 30 mg PO DAILY zolpidem 5 mg tablet 5 mg PO BEDTIME PRN (Reason: Sleep) diclofenac sodium 50 mg tablet,delayed release (DR/EC) 50 mg PO BID albuterol sulfate 2.5 mg /3 mL (0.083 %) solution for nebulization 2.5 mg inhalation Q4-6H PRN (Reason: shortness of breath or wheezing) Qty: 180 0RF bisacodyl [Dulcolax (bisacodyl)] 5 mg tablet,delayed release (DR/EC) 10 mg PO BEDTIME Qty: 180 4RF Diet: Advance to usual diet Activity on Discharge: As tolerated Stand Alone Forms: Patient Portal Discharge page Print Language: Citizen Of [place] Care Plan Goals: Recovery Health Concerns: Syncope Plan of Treatment: Use O2, follow up with Pulmonary Assessment: See above
[2024-12-23 12:05] VITALS: BP 113/73; PULSE 68; RESP 15; TEMP 36.4; O2SAT 100
--- NOTE | 2024-12-23 12:45 | PC.NURSE ---
Pt has been resting quietly. NAD. skin pwd. unlabored resp. complaining of headache and awaits bed on IMC.
--- NOTE | 2024-12-23 15:32 | MHC.CM.PN ---
Patient has been medically cleared for dc to home today, self care.
[2024-12-23 16:19] VITALS: BP 113/73; PULSE 68; RESP 15; TEMP 36.4; O2SAT 100
--- NOTE | 2024-12-23 17:00 | CA_ITS ---
Transthoracic Echocardiogram Patient (Last, First, Middle): Lesley Campbell, Gender: Female Date of : 1975 Age: 49 Procedure Date: 12/23/2024 Procedure Type: Transthoracic Echocardiogram Location: ER Height: 152.4 cm Weight: 81.65 kg BSA: 1.78 m2 Heart Rate: bpm BP: 116 / 82 mmHg Heart Doctor: Referring MD: Malvin Hess MD Symptoms: sycnope Study Quality: Good ECG Rhythm: Sinus Conclusions: - Normal left ventricular size, thickness, systolic function, and wall motion. The visually estimated ejection fraction is between 55-60%. Diastolic function is normal for age. - Normal right ventricular cavity size and systolic function. - There is no evidence of pulmonary hypertension. Findings Left Ventricle Normal left ventricular size, thickness, systolic function, and wall motion. The visually estimated ejection fraction is between 55-60%. Diastolic function is normal for age. Right Ventricle Normal right ventricular cavity size and systolic function. Atria Both atria are normal in size. Aortic Valve Normal aortic valve structure and function. There is no aortic valve stenosis. There is no aortic valve regurgitation. Mitral Valve Normal mitral valve structure and function. There is no mitral valve regurgitation. There is no mitral valve stenosis. Pulmonic Valve The pulmonic valve is likely normal. Tricuspid Valve Normal tricuspid valve structure. There is no tricuspid valve regurgitation. Normal right atrial pressure. There is no evidence of pulmonary hypertension. Great Vessels All visible segments of the aorta are normal in size. The visualized portions of the pulmonary artery and branches are normal. Venous The inferior vena cava is normal in size and collapses greater than 50% with inspiration. Pericardium/Pleural There is no evidence of pericardial effusion. Measurements 2D Linear Measurements IVSd: 0.88 0.6-0.9/0.6-1.0 cm LVIDd: 4.33 3.9-5.3/4.2-5.9 cm LVIDd Index: 2.43 2.4-3.2/2.2-3.1 cm/m2 LVIDs: 2.58 2.0-3.6 cm LVPWd: 0.89 0.7-1.1 cm Ao Root: 3.20 2.1-3.5 cm LA Diam: 2.70 2.7-3.8/3.0-4.0 cm LAIDs Index: 1.52 1.5-2.3 cm/m2 LV Mass: 150.93 67-162/88-224 g LV Mass Index: 84.79 43-95/49-115 g/m2 LVOT Diam: 2.20 3.0+(-)1.3 cm 2D Systolic Function EF 4C: 67.60 >55% EF 2C: 65.10 >55% EF BiP: 67.30 >55% Mitral Valve MV Pk E: 0.66 MV PK A: 0.75 MV Decel Time: 250.00 E/A: 0.90 E'Lateral: 6.53 E'Medial: 6.20 E/E' Med: 10.60 E/E' Lat: 10.10 PHT: 73.00 MVA PHT: 3.01 Decel Owen: 2.64 Aortic Valve AoV Pk Peter: 1.36 AoV Mn Peter: 0.97 AoV VTI: 0.30 AoV Pk Grad: 7.00 Aov Mn Grad: 4.00 JOAQUIN Cont.VTI: 2.51 LVOT LVOT Pk Peter: 0.86 LVOT Mn Peter: 0.61 LVOT VTI: 0.20 LVOT Pk Grad: 3.00 LVOT Mn Grad: 2.00 LVOT Diam: 2.20 LVOT Area: 3.80 Diastolic Function MV Pk E: 0.66 MV Pk A: 0.75 E/A: 0.90 E'Medial: 6.20 E/E' Med: 10.60 E' Laterial: 6.53 E/E' Lat: 10.10 Right Ventricle TAPSE (mm): 17.00 TVS' Peter: 11.00 Tricuspid Valve TR Pk Peter: 1.71 TR Pk Grad: 12.00 RA Press: 3.00 RVSP: 15.00 Great Vessels Aorta Ao Root-2D: 3.20 2.0-3.7 cm Ao Asc: 3.10 2.1-3.4 cm Ao Arch: 2.80 Pulmonary Veins Pulm Vein S/D 1.40 Pulmonary Valve PV Pk Peter: 0.82 Peak PV Grad: 3.00 Updated in Other Vendor System with Status of Final Dieter Cook MD electronically signed on 12/23/2024 3:22:35 PM with status of Final
== END 2024-12-23 17:08 | disposition home or self-care (01) ==
LOC: HO.ED 15:17 → HO.EDOVER 17:07
PROVIDERS: Admitting Provider Internal Medicine; Emergency Provider Emergency Medicine; PCP Internal Medicine; Visit Provider Internal Medicine
DX: R55 Syncope and collapse (principal); R94.31 Abnormal electrocardiogram [ECG] [EKG]; J84.9 Interstitial pulmonary disease, unspecified; J96.91 Respiratory failure, unspecified with hypoxia; M05.10 Rheumatoid lung disease with rheumatoid arthritis of unspecified site; K21.9 Gastro-esophageal reflux disease without esophagitis; E78.5 Hyperlipidemia, unspecified; J45.909 Unspecified asthma, uncomplicated; Z99.81 Dependence on supplemental oxygen; Z79.899 Other long term (current) drug therapy
CPT/HCPCS: 36415; 80048; 80076; 82947; 83735; 83880; 84484; 85025; 85027; 93005; 93306; 96365; 96366; 96372; 99212; 99222; 99285; J1650; J3475; Q9957

== ENCOUNTER 2024-12-22 17:00 | Outpatient (BNV) | payer OTHER, SELFPAY | END 2024-12-23 | PROVIDERS: Admitting Provider Internal Medicine; Emergency Provider Emergency Medicine; PCP Internal Medicine; Visit Provider Internal Medicine Cardiovascular Disease | DX: R55 Syncope and collapse (principal); I49.3 Ventricular premature depolarization; R00.0 Tachycardia, unspecified; R94.31 Abnormal electrocardiogram [ECG] [EKG] | CPT/HCPCS: 93010; 93306 ==

== ENCOUNTER → 2024-12-22 17:00 | Outpatient (BNV) | payer OTHER, SELFPAY | PROVIDERS: Admitting Provider Internal Medicine; Emergency Provider Emergency Medicine; PCP Internal Medicine; Visit Provider Internal Medicine | DX: R55 Syncope and collapse (principal) | CPT/HCPCS: 99223 ==

== ENCOUNTER → 2024-12-22 17:00 | Outpatient (BNV) | payer OTHER, SELFPAY | PROVIDERS: Admitting Provider Internal Medicine; Emergency Provider Emergency Medicine; PCP Internal Medicine; Visit Provider Internal Medicine Cardiovascular Disease | DX: J84.9 Interstitial pulmonary disease, unspecified (principal); R55 Syncope and collapse | CPT/HCPCS: 93010; 99223 ==

== ENCOUNTER 2025-01-03 09:20 | Outpatient (AMB) | payer OTHER, SELFPAY ==
--- NOTE | 2025-01-03 09:25 | MHC.PC.OV ---
Vital Signs 01/03/25 09:28 Height 5 ft Weight 178 lb 6 oz BMI 34.8 BP 124/76 Blood Pressure Location Lt brachial Position Sitting Pulse 86 Pulse Source Pulse Oximeter Pulse Oximetry (%) 91 L Oxygen Delivery Method Nasal Cannula Oxygen Flow Rate 1 Intake Visit Reasons: [facility] [place] 12/23 Syncope Chief Compliance Officer Required: No Accompanied by: Self / Same As Patient Allergies No Known Allergies Allergy (Verified 01/03/25 09:52) Medication List - Last Reconciled 01/03/25 by Emerald Steve MD albuterol sulfate 2.5 mg (3 mL) inhalation Q4-6H PRN albuterol sulfate 90 mcg/actuation (Ventolin HFA) 2 puffs inhalation Q6H PRN 30 days bisacodyl (Dulcolax (bisacodyl)) 10 mg (2 x 5 mg) PO BEDTIME budesonide-formoterol 160-4.5 mcg/actuation (Symbicort) 2 puffs inhalation Q12H cholecalciferol (vitamin D3) 50 mcg PO DAILY diclofenac sodium 50 mg PO BID fluoxetine 30 mg PO DAILY gabapentin 200 mg PO BID hydroxychloroquine 200 mg PO BID sucralfate 1 g PO BEDTIME thiamine HCl (vitamin B1) 100 mg PO DAILY zolpidem 5 mg PO BEDTIME PRN Tobacco use date assessed: 01/03/25 Dental Screening Dental Screen Date: 01/03/25 Did you have a dental visit in the last 12 months?: No Did you have a dental problem in the last 6 months where you did not have access to dental care?: No Was dental information given to patient?: No HPI HPI Comments History of Present Illness Details The patient is a 49-year-old female presenting with syncope. She was admitted to the hospital on December 22 and discharged on December 23 following an episode of syncope. An echocardiogram was performed, showing no significant abnormalities, although PVCs and a prolonged QT interval were noted, possibly related to medication use. The patient has a history of interstitial lung disease, managed by pulmonology, and uses oxygen at 1 liter continuously, except during bathing and restroom use. A CT scan of the chest this year showed no acute findings. She also has rheumatoid arthritis, managed with hydroxychloroquine, and depression with anxiety, for which she takes fluoxetine. Additionally, she is on gabapentin and diclofenac for pain management. [facility] Medical History (Updated 01/03/25 @ 10:07 by Emerald Steve MD) Multiple pulmonary nodules Interstitial lung disease Thiamine deficiency Depression H/O degenerative disc disease Hyperlipidemia Vitamin D deficiency Migraines Sessile serrated polyp of colon Abdominal pain Obesity (BMI 30-39.9) Osteoarthritis of right ankle Allergic rhinitis GERD (gastroesophageal reflux disease) Asthma Rheumatoid arthritis Surgical History History of colonoscopy History of esophagogastroduodenoscopy (EGD) Hx laparoscopic cholecystectomy (~09/2018) History of total left hip arthroplasty Hx of tubal ligation H/O section Hx of laparoscopic gastric banding Family History Father Diabetes mellitus Hypertension Maternal Aunt Breast cancer Mother CAD (coronary artery disease) Diabetes mellitus Sister No problems noted. Brother No problems noted. Brother No problems noted. Brother No problems noted. Son No problems noted. Daughter Hypertension Asthma Daughter Obesity ADHD Social History Housing: House Alcohol intake: current Alcohol intake frequency: holidays/special occasions only Alcohol type: beer, wine and hard liquor Patient Tobacco Use Status: Never used Tobacco e-Cigarette/Vaping Use: Never Used Second Hand Smoke Exposure: Yes service: No Current occupational status: disabled Cognitive needs: No Hearing needs: No Vision needs: Yes Female Reproductive History Menstrual Age of Menarche: 11 Questionnaire PHQ-9 Over the last 2 weeks, how often have you been bothered by any of the following problems? 1. Little interest or pleasure in doing things: several days 2. Feeling down, depressed, or hopeless: several days 3. Trouble falling or staying asleep, or sleeping too much: several days 4. Feeling tired or having little energy: several days 5. Poor appetite or overeating: not at all 6. Feeling bad about yourself - or that you are a failure or have let yourself or your family down: not at all 7. Trouble concentrating on things, such as reading the newspaper or watching television: not at all 8. Moving or speaking so slowly that other people could have noticed. Or the opposite - being so fidgety or restless that you have been moving around a lot more than usual: not at all 9. Thoughts that you would be better off or of hurting yourself in some way: not at all Total score: 4 Depression Screening Interpretation: Positive Depression Screening Follow-up: Existing condition, In treatment, Community Mental Health Worker F/U (came to see patient during appointment ) and Follow-up Visit Requested Depression Screening Done: Yes 14494 - PHQ-9 Billing: Yes Source: Developed by Drs. Benito Rhodes, Angelita Vanegas, Tree Gandhi and colleagues, with an educational alexi from [employer]. Thrive Questionnaire Date Thrive assessed: 08/11/24 I am a: Patient What is your living situation today?: I have a steady place to live Within the past 12 months, did the food you bought not last and you didn't have the money to get more?: I choose not to answer this question Within the past 12 months, did you worry whether your food would run out before you got money to buy more?: I choose not to answer this question Do you have trouble paying for medicines?: No Do you have trouble getting transportation to medical appointments?: No Do you have trouble paying your heating and electricity bill?: No Do you have trouble taking care of your child, family member or friend?: No Do you have trouble with day-to-day activities such as bathing, preparing meals, shopping, managing finances, etc.?: Yes Are you currently unemployed and looking for a job?: No Are you interested in more education?: No Please select the resources that you would like help with: None Currently or been in a relationship where the following occur: No concerns reported THRIVE Score: 0 AUDIT C Alcohol Use Questionnaire (AUDIT-C) 1. How often do you have a drink containing alcohol?: Monthly or less 2. How many drinks containing alcohol do you have on a typical day when you are drinking?: 1 or 2 3. How often do you have six or more drinks on one occasion?: Never Total Score: 1 Score Reviewed/Action Taken: No VIET-7 AMB Questionnaire VIET-7 Date VIET - 7 assessed: 08/18/24 Feeling nervous, anxious, or on edge: 3 = Nearly every day Not being able to stop or control worryin = Several days Worrying too much about different things: 3 = Nearly every day Trouble relaxin = Several days Being so restless that it is hard to sit still: 0 = Not at all Becoming easily annoyed or irritable: 2 = More than half the days Feeling afraid as if something awful might happen: 1 = Several days Total VIET-7 score (0-4 normal; 5-9 mild; 10-14 moderate; 15-21 severe): 11 Source: Developed by Drs. Benito Rhodes, Angelita Vanegas, Tree Gandhi and colleagues, with an educational alexi from [employer]. VIET-7 Assessment Billing VIET-7 Assessment Tool: VIET-7 Assessment 55031 Review of Systems Const All systems reviewed & are unremarkable except as noted in HPI and below Card Denies chest pain at rest, Denies chest pain with activity, Denies edema, Denies irregular heart rhythm, Denies claudication, Denies dyspnea, Denies dyspnea on exertion, Denies orthopnea, Denies paroxysmal nocturnal dyspnea and Denies slow heart rate Resp Denies cough, Denies dyspnea and Denies dyspnea on exertion GI Denies abdominal pain, Denies change in bowel habits, Denies excessive flatus, Denies nausea and Denies vomiting Physical exam (Primary Care) Vital Signs: Last Vital Signs Pulse 86 01/03/25 09:28 BP 124/76 01/03/25 09:28 Pulse Ox 91 L 01/03/25 09:28 Oxygen Delivery Method Nasal Cannula 01/03/25 09:28 Oxygen Flow Rate 1 01/03/25 09:28 BMI result Body Mass Index 34.8 Tobacco/Smoking Status: Tobacco use Status Tobacco use date assessed 01/03/25 01/03/25 09:33 Patient Tobacco Use Status Never used Tobacco 01/03/25 09:33 e-Cigarette/Vaping Use Never Used 01/03/25 09:33 PHQ-9: PHQ-9 Score PHQ-9: Total score 4 01/03/25 09:33 Depression Screening Interpretation: Positive Depression Screening Follow-up: Existing condition, In treatment, Community Mental Health Worker F/U (came to see patient during appointment ) and Follow-up Visit Requested Thrive Assessment: Date of Thrive Assessment Date Thrive assessed 08/11/24 01/03/25 09:33 Currently or been in a relationship where the following occur: No concerns reported Resp Effort & Inspection: normal respiratory effort Auscultation: clear to auscultation bilaterally Cardio Jugular venous distension: no JVD Rate: regular rate Rhythm: regular rhythm Heart sounds: S1 normal heart sound present and S2 normal heart sound present Neuro General: no focal motor deficits Extrem General: Yes full ROM Coding Level of Care Code Est Pt Level 4 (59566) Complex EM visit Add On G2211 Diagnoses Hospital discharge follow-up Z09 Syncope R55 Interstitial lung disease J84.9 Rheumatoid arthritis M06.9 Prolonged QT interval R94.31 Mild recurrent major depression F33.0 Additional Codes PHQ-9 - 43795 - PHQ-9 Billing: Yes ([id number]) VIET-7 Assessment Billing - VIET-7 Assessment Tool: VIET-7 Assessment 25975 ([id number]) Time Spent (min) 24 Assessment & Plan Assessment & Plan (1) Hospital discharge follow-up: Code(s): Z09 - Encounter for follow-up examination after completed treatment for conditions other than malignant neoplasm Category: Medical (2) Syncope: Code(s): R55 - Syncope and collapse Category: Medical (3) Interstitial lung disease: Code(s): J84.9 - Interstitial pulmonary disease, unspecified Category: Medical (4) Rheumatoid arthritis: Code(s): M06.9 - Rheumatoid arthritis, unspecified Category: Medical (5) Prolonged QT interval: Code(s): R94.31 - Abnormal electrocardiogram [ECG] [EKG] Category: Medical (6) Mild recurrent major depression: Code(s): F33.0 - Major depressive disorder, recurrent, mild Category: Medical Plan Plan Patient was informed and verbally consented to the use of an ambient scribe for clinic note documentation during this visit. 1. Syncope and collapse R55 The patient will follow up with cardiology to further evaluate the syncope and the noted PVCs and prolonged QT interval. An echocardiogram was performed during hospitalization, which showed no significant abnormalities. Further cardiac evaluation is recommended to rule out any underlying cardiac causes. 2. Interstitial pulmonary disease, unspecified J84.9 HCC 112 The patient is managed by pulmonology for interstitial lung disease and uses oxygen at [address] scan of the chest this year showed no acute findings. 3. Rheumatoid arthritis, unspecified M06.9 HCC 40 The patient is on hydroxychloroquine for rheumatoid arthritis, managed by rheumatology. 4. Major depressive disorder, recurrent, mild F33.0 HCC 59 The patient is on fluoxetine for depression with anxiety. Orders: Orders CT head/brain wo IV con Today R55 - Syncope and collapse Referrals Cardiology Referral R55 - Syncope and collapse
[2025-01-03 09:28] VITALS: BP 124/76; PULSE 86; O2SAT 91; BMI 34.8
--- OUTSIDE RECORDS SUMMARY | 2025-01-03 09:46 | XMS_ITS | Clinical Summary ---
Author Organization [facility] ity Address [address] [place] [address] Care Team Providers Care Merchandise Presentation Associate Name Role Phone Unavailable Primary Care Provider [...]
== END 2025-01-03 10:04 | disposition home or self-care (01) ==
LOC: HO.HMCH 09:21
PROVIDERS: PCP Internal Medicine; Visit Provider Internal Medicine
DX: Z09 Encounter for follow-up examination after completed treatment for conditions other than malignant neoplasm (principal); R55 Syncope and collapse; J84.9 Interstitial pulmonary disease, unspecified; M06.9 Rheumatoid arthritis, unspecified; R94.31 Abnormal electrocardiogram [ECG] [EKG]; F33.0 Major depressive disorder, recurrent, mild

== ENCOUNTER → 2025-01-03 09:20 | Outpatient (BNVA) | payer OTHER, SELFPAY | PROVIDERS: PCP Internal Medicine; Visit Provider Internal Medicine | DX: R55 Syncope and collapse (principal); J84.9 Interstitial pulmonary disease, unspecified; M06.9 Rheumatoid arthritis, unspecified; R94.31 Abnormal electrocardiogram [ECG] [EKG]; F33.0 Major depressive disorder, recurrent, mild; Z09 Encounter for follow-up examination after completed treatment for conditions other than malignant neoplasm; Z99.81 Dependence on supplemental oxygen | CPT/HCPCS: 96127; 99212 ==

== ENCOUNTER 2025-02-25 07:43 | Outpatient (REF) | payer OTHER, SELFPAY ==
--- NOTE | ~2025-02-25 | CT_ITS ---
CLINICAL HISTORY: R55 - Syncope and collapse CT head without contrast Comparison: None provided Findings: No intra-axial mass, midline shift, hydrocephalus, or acute hemorrhage. No significant atrophy-like change or white matter disease. There is no sinus or mastoid fluid. The orbits are unremarkable. There is no acute fracture. IMPRESSION: 1. No acute intracranial findings. This document has been electronically signed by: Teofilo Ge MD on 02/28/2025 13:53:04
--- OUTSIDE RECORDS SUMMARY | 2025-02-25 07:45 | XMS_ITS | Clinical Summary ---
Author Organization [facility] ity Address [address] [place] [address] Care Team Providers Care Gis Application Developer Name Role Phone Unavailable Primary Care Provider [...] Cervical Cancer Screening: P ap Smear 1995 Depression Screening 05/11/2024 Pneumococcal Vaccine: 50+ Ye ars (1 of 1 - PCV) 2024 Zoster Vaccines (1 of 2) 2024 COVID-19 Vaccine (1 - 2023-2 5 season) 2025 Influenza Vaccine (#1) 2025 RSV Immunization Adult Patie nts (1 - 1-dose 75+ series) 2049 HIB Vaccines Aged Out No longer eligi [...]
== END 2025-02-25 07:44 | disposition home or self-care (01) ==
LOC: HO.CT 07:43
PROVIDERS: PCP Internal Medicine; Visit Provider Internal Medicine
DX: R55 Syncope and collapse (principal)
CPT/HCPCS: 70450

== ENCOUNTER → 2025-02-25 07:44 | Outpatient (BNV) | payer OTHER, SELFPAY | PROVIDERS: PCP Internal Medicine; Visit Provider Radiology Vascular & Interventional Radiology | DX: R55 Syncope and collapse (principal) | CPT/HCPCS: 70450 ==

== ENCOUNTER 2025-03-09 10:29 | Outpatient (AMB) | payer OTHER, SELFPAY ==
--- NOTE | 2025-03-09 10:33 | MHC.OFFVIS ---
Vital Signs 03/09/25 10:41 Height 5 ft Weight 178 lb BMI 34.8 BP 110/72 Blood Pressure Location Lt brachial Position Sitting Intake Visit Reasons: Annual Intake Note: Here for LIMOUSINE AND HEARSE UPHOLSTERER annual Information Interpreted: non-clinical & clinical Street Openings Inspector: Street Openings Inspector Present (Eva) Accompanied by: Self / Same As Patient Allergies No Known Allergies Allergy (Verified 03/09/25 10:37) Medication List - Last Reconciled 03/09/25 by Rylee Olguin LPN albuterol sulfate 2.5 mg (3 mL) inhalation Q4-6H PRN albuterol sulfate 90 mcg/actuation (Ventolin HFA) 2 puffs inhalation Q6H PRN 30 days bisacodyl (Dulcolax (bisacodyl)) 10 mg (2 x 5 mg) PO BEDTIME budesonide-formoterol 160-4.5 mcg/actuation (Symbicort) 2 puffs inhalation Q12H cholecalciferol (vitamin D3) 50 mcg PO DAILY diclofenac sodium 50 mg PO BID fluoxetine 30 mg PO DAILY gabapentin 200 mg PO BID hydroxychloroquine 200 mg PO BID sucralfate 1 g PO BEDTIME thiamine HCl (vitamin B1) 100 mg PO DAILY zolpidem 5 mg PO BEDTIME PRN Is last menstrual period known: No Do you need a note to return to daycare/school/sports/work: No HPI HPI Annual: Details: 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 She does note some itching sometimes but it comes and goes she would like a prescription that she could have to use when she needs it. She is not having any symptoms right now. She is up-to-date on her mammogram she did have 1 that required some follow-up but it she said everything was fine after the 2nd 1. She has not had her period in a couple of years. She is now on oxygen and that is been for less than the last year. They were trying to wean her off she said and try to 6 minute walk and she passed out and had to be in the hospital for a day. So now she is on oxygen at home all the time she has a machine at home and she has a tank with her today during this visit. Her daughter had come to the visit and is sitting outside. [facility] Medical History (Updated 03/09/25 @ 12:00 by Deidre Sanches CNM) Requires oxygen therapy Multiple pulmonary nodules Interstitial lung disease Thiamine deficiency Depression H/O degenerative disc disease Hyperlipidemia Vitamin D deficiency Migraines Sessile serrated polyp of colon Abdominal pain Obesity (BMI 30-39.9) Osteoarthritis of right ankle Allergic rhinitis GERD (gastroesophageal reflux disease) Asthma Rheumatoid arthritis Surgical History History of colonoscopy History of esophagogastroduodenoscopy (EGD) Hx laparoscopic cholecystectomy (~09/2018) History of total left hip arthroplasty Hx of tubal ligation H/O section Hx of laparoscopic gastric banding Family History Father Diabetes mellitus Hypertension Maternal Aunt Breast cancer Mother CAD (coronary artery disease) Diabetes mellitus Sister No problems noted. Brother No problems noted. Brother No problems noted. Brother No problems noted. Son No problems noted. Daughter Hypertension Asthma Daughter Obesity ADHD Social History Housing: House Alcohol intake: current Alcohol intake frequency: holidays/special occasions only Alcohol type: beer, wine and hard liquor Patient Tobacco Use Status: Never used Tobacco e-Cigarette/Vaping Use: Never Used Second Hand Smoke Exposure: Yes service: No Current occupational status: disabled Cognitive needs: No Hearing needs: No Vision needs: Yes Female Reproductive History Menstrual Age of Menarche: 11 Date of last menstrual period: 05/11/22 control method: permanent sterilization Menopause type: natural Total pregnancies: 6 Number of Living Children: 3 Ab spontaneous: 3 Date of last pap smear: 09/26/21 History of abnormal pap smear: No Date of Mammogram: 12/06/24 History of abnormal mammogram: No Physical Exam Vital Signs: Last Vital Signs BP 110/72 03/09/25 10:41 BMI result Body Mass Index 34.8 Const Other: Patient does appear slightly pale skin is slightly dusky. Patient is on supplemental oxygen with a tank she is not dyspneic or having any shortness of breath. General: healthy appearing, comfortable, no acute distress, well developed and alert Nutritional Appearance: average body habitus Orientation/consciousness: patient oriented x3 Limitations: no limitations HEENT Head: Yes normocephalic Neck Neck: Yes normal visual inspection Chest Other: Her breasts are somewhat pendulous patient is slightly stooped she says she does have a supportive bra. Chest palpation & inspection: normal inspection of the chest Breast/axilla inspection: normal inspection of the breasts and normal inspection of the axillae Breast/axilla palpation: normal palpation of the breasts and normal palpation of the axillae Resp Effort & Inspection: normal respiratory effort GI Inspection: Yes normal to inspection, No Abdominal wall edema and No distended Palpation (GI): Soft to palpation and nontender Other: External exam within normal limits vagina mildly atrophic bimanual exam cervix and uterus difficult to palpate secondary to adipose but nontender nonenlarged good muscle tone. Scant white secretions consistent possibly with either normal zuleyma or possibly mild BV. General: Yes bladder normal to palpation External Female Exam: normal external appearance and normal appearance of the urethra Speculum Exam - Vagina: normal appearance of the vagina, normal palpation and normal vaginal discharge Speculum Exam - Cervix: normal appearance of the cervix, normal palpation and nontender Bimanual exam- vagina & uterus: normal bimanual exam, normal palpation, uterine size normal, bladder normal to palpation, consistency normal, normal palpation, uterine mobility normal, uterine shape normal, No Cervical tenderness present, non-tender and no cervical motion tenderness Bimanual Exam- Adnexa, other: normal adnexae, no masses, normal and No adnexal tenderness Neuro General: patient oriented x3 Assessment & Plan Assessment & Plan (1) Perimenopausal: Code(s): N95.1 - Menopausal and female climacteric states Category: Medical (2) Cervical cancer screening: Comment: Reports no history of abnormals in last 20 years, last Pap negative with negative HPV September of 2021. Code(s): Z12.4 - Encounter for screening for malignant neoplasm of cervix Category: Medical (3) Impaired glucose tolerance: Comment: States that she was told she does not have diabetes per her her last testing. Code(s): R73.02 - Impaired glucose tolerance (oral) Category: Medical (4) Obesity (BMI 30-39.9): Code(s): E66.9 - Obesity, unspecified Category: Medical (5) Supplemental oxygen dependent: Code(s): Z99.81 - Dependence on supplemental oxygen Category: Medical (6) Vaginal itching: Comment: Occasional vaginal itching. Testing done today for BV and yeast will offer treatment for BV for PRN use as she has had this before we will send prescription. Code(s): N89.8 - Other specified noninflammatory disorders of vagina Category: Medical Plan -----Discussed in this visit the following: healthy balanced diet, regular and consistent exercise, getting recommended health screens, doing the best she can for her particular health concerns, kegel exercises, pap smear screening and followup recommendations, mammography screening and SBE, normal changes in cycles in her life stage--- . Testing offered for BV and yeast. Discharge looks within normal limits and not particularly evident of BV but she has had that before and says occasionally she gets itching that is consistent with previous diagnoses offered prescription for Metrogel that she may have to use at her convenience and we will await confirmatory testing. She says she was tested negative for diabetes. She is up-to-date with her care provider's. Her daughter assisted her to this visit today she has the supplemental oxygen tank that she has to pull after her. She is not due for Pap smear we will see her in 1 year. Medications: New metronidazole 0.75%(37.5mg/5gram) May use PRN when you have symptoms of bacterial vaginosis. 1 appful vaginal BID 70 grams 1RF 5 days Coding Level of Care Code Est Pt Prev Care 40-64y(12462) Diagnoses Perimenopausal N95.1 Cervical cancer screening Z12.4 Impaired glucose tolerance R73.02 Obesity (BMI 30-39.9) E66.9 Supplemental oxygen dependent Z99.81 Vaginal itching N89.8
[2025-03-09 10:41] VITALS: BP 110/72; BMI 34.8
--- OUTSIDE RECORDS SUMMARY | 2025-03-09 12:47 | XMS_ITS | Clinical Summary ---
Author Organization [facility] ity Address [address] [place] [address] Care Team Providers Care Backup Administrative Coordinator Name Role Phone Unavailable Primary Care Provider [...]
== END 2025-03-09 11:59 | disposition home or self-care (01) ==
LOC: HO.HWSM 10:29
PROVIDERS: PCP Internal Medicine; Visit Provider Advanced Practice Midwife
DX: Z01.419 Encounter for gynecological examination (general) (routine) without abnormal findings (principal); N95.1 Menopausal and female climacteric states; E66.9 Obesity, unspecified; Z68.34 Body mass index [BMI] 34.0-34.9, adult; R73.02 Impaired glucose tolerance (oral); Z99.81 Dependence on supplemental oxygen; N89.8 Other specified noninflammatory disorders of vagina
CPT/HCPCS: 99396; 99459

== ENCOUNTER 2025-03-09 10:29 | Outpatient (REF) | payer OTHER, SELFPAY ==
[2025-03-10 01:04] LABS: Bacterial Vaginosis PCR POSITIVE (Negative); Candida Group PCR NOT DETECTED (Not Detect); Candida glab krusei PCR NOT DETECTED (Not Detect); Trichomonas vaginalis PCR NOT DETECTED (Not Detect)
== END 2025-03-09 10:30 | disposition home or self-care (01) ==
LOC: HO.LNP 10:29
PROVIDERS: PCP Internal Medicine; Visit Provider Advanced Practice Midwife
DX: N95.1 Menopausal and female climacteric states (principal); N89.8 Other specified noninflammatory disorders of vagina; R73.02 Impaired glucose tolerance (oral); E66.9 Obesity, unspecified; Z12.4 Encounter for screening for malignant neoplasm of cervix; Z99.81 Dependence on supplemental oxygen; Z68.34 Body mass index [BMI] 34.0-34.9, adult; Z20.2 Contact with and (suspected) exposure to infections with a predominantly sexual mode of transmission
CPT/HCPCS: 81515; 99396

== ENCOUNTER 2025-03-13 08:55 | Outpatient (AMB) | payer OTHER, SELFPAY ==
[2025-03-13 08:58] VITALS: BP 90/72; PULSE 74; BMI 34.6
--- NOTE | 2025-03-13 08:58 | MHC.OFFVIS ---
Vital Signs 03/13/25 08:58 Height 5 ft Weight 177 lb 4.026 oz BMI 34.6 BP 90/72 Blood Pressure Location Lt brachial Position Sitting Pulse 74 Pulse Source Pulse Oximeter Intake Visit Reasons: [facility] [place] d/u followup/syncope/collapse [facility] Land Leasing Information Clerk Required: No Land Leasing Information Clerk Services: Land Leasing Information Clerk Offered & Declined Vice President Of Operations: Vice President Of Operations Present Allergies No Known Allergies Allergy (Verified 03/13/25 09:01) Medication List - Last Reconciled 03/14/25 by NILE Meyers albuterol sulfate 2.5 mg (3 mL) inhalation Q4-6H PRN albuterol sulfate 90 mcg/actuation (Ventolin HFA) 2 puffs inhalation Q6H PRN 30 days bisacodyl (Dulcolax (bisacodyl)) 10 mg (2 x 5 mg) PO BEDTIME budesonide-formoterol 160-4.5 mcg/actuation (Symbicort) 2 puffs inhalation Q12H cholecalciferol (vitamin D3) 50 mcg PO DAILY diclofenac sodium 50 mg PO BID fluoxetine 30 mg PO DAILY gabapentin 200 mg PO BID hydroxychloroquine 200 mg PO BID metronidazole 0.75%(37.5mg/5gram) 1 appful vaginal BID 5 days sucralfate 1 g PO BEDTIME thiamine HCl (vitamin B1) 100 mg PO DAILY zolpidem 5 mg PO BEDTIME PRN HPI HPI [facility] [place] d/u followup/syncope/collapse KM: Details: Lesley is a 49-year-old female with past medical history of asthma, interstitial lung disease on home O2, rheumatoid arthritis, hyperlipidemia, impaired fasting glucose, obesity who had a syncopal event in the pulmonary department 12/22/2024 while undergoing a 6 minute walk test with her oxygen off. She was given a dose of epinephrine IM. Her 1st EKG in the ER did show prolonged QTC 646 with frequent PVCs. Her magnesium and potassium were low normal and she was given supplement. Repeat EKG showed QTC 454 milliseconds. She did have echocardiogram showing no significant abnormalities. She now presents for follow-up. Today she reports she has been doing well since the time of her hospital discharge. She has not had any recurrent syncopal events. She wears her oxygen most of the time. She will take it off at home when she is sitting. No chest discomfort at rest or with activity. She has chronic shortness of breath with activity. No PND, orthopnea or edema. She does feel heart palpitations like her heart is beating fast. No lightheadedness, presyncope, falls. She does only light physical activities. Daughter is present. [facility] Medical History Requires oxygen therapy Multiple pulmonary nodules Interstitial lung disease Thiamine deficiency Depression H/O degenerative disc disease Hyperlipidemia Vitamin D deficiency Migraines Sessile serrated polyp of colon Abdominal pain Obesity (BMI 30-39.9) Osteoarthritis of right ankle Allergic rhinitis GERD (gastroesophageal reflux disease) Asthma Rheumatoid arthritis Surgical History History of colonoscopy History of esophagogastroduodenoscopy (EGD) Hx laparoscopic cholecystectomy (~09/2018) History of total left hip arthroplasty Hx of tubal ligation H/O section Hx of laparoscopic gastric banding Family History Father Diabetes mellitus Hypertension Maternal Aunt Breast cancer Mother CAD (coronary artery disease) Diabetes mellitus Sister No problems noted. Brother No problems noted. Brother No problems noted. Brother No problems noted. Son No problems noted. Daughter Hypertension Asthma Daughter Obesity ADHD Social History Housing: House Alcohol intake: current Alcohol intake frequency: holidays/special occasions only Alcohol type: beer, wine and hard liquor Patient Tobacco Use Status: Never used Tobacco e-Cigarette/Vaping Use: Never Used Second Hand Smoke Exposure: Yes service: No Current occupational status: disabled Cognitive needs: No Hearing needs: No Vision needs: Yes Female Reproductive History Menstrual Age of Menarche: 11 Review of Systems Const All systems reviewed & are unremarkable except as noted in HPI and below ENT Denies dizziness Card Denies chest pain, Denies chest pain at rest, Denies chest pain with activity, Reports rapid heart rate, Denies pedal edema, Denies edema, Denies leg edema, Denies lightheadedness, Denies palpitations, Reports dyspnea, Denies dyspnea on exertion and Denies orthopnea Resp Denies cough, Reports dyspnea and Denies dyspnea on exertion GI Denies hematochezia and Denies change in stool character Musc Denies abnormal gait, Denies limited range of motion, Denies muscle cramps, Denies muscle weakness, Denies numbness, Denies radiating pain into limb, Denies stiffness and Denies tingling Neuro Denies abnormal gait, Denies dizziness, Denies numbness and Denies tingling Endo Denies palpitations Physical Exam Vital Signs: Last Vital Signs Pulse 74 03/13/25 08:58 BP 90/72 03/13/25 08:58 BMI result Body Mass Index 34.6 Const General: cooperative, healthy appearing, comfortable and no acute distress Orientation/consciousness: patient oriented x3 Neck Neck: Yes normal visual inspection Resp Other: wearing O2 with nasal cannula Effort & Inspection: normal respiratory effort Auscultation: clear to auscultation bilaterally, no rales, no rhonchi and wheezes Cardio Rate: regular rate Rhythm: regular rhythm Heart sounds: S1 normal heart sound present, S2 normal heart sound present, no gallops, no murmurs and no rubs Neuro General: patient oriented x3 Extrem General: Yes normal to inspection, No no pedal edema and No calf tenderness Psych Appearance: grossly normal Mental Status: mental status grossly normal Speech and movement: Normal speech and movement present Assessment & Plan Assessment & Plan (1) Prolonged QT interval: Code(s): R94.31 - Abnormal electrocardiogram [ECG] [EKG] Category: Medical Plan: Syncopal event with 1st EKG in the ER showing sinus rhythm with frequent PVCs, QTC 646 milliseconds. Magnesium potassium supplements were given. Repeat EKG did show normalization of QTC interval. Echocardiogram showed EF 55-60%, normal RV and no pulmonary hypertension. It was thought her syncope was related to hypoxia. (2) Palpitations: Code(s): R00.2 - Palpitations Category: Medical Plan: Recent event as above. She is now reporting heart palpitations/ rapid heartbeats that she does get periodical. Will check Holter monitor. (3) Low blood pressure: Code(s): I95.9 - Hypotension, unspecified Category: Medical Plan: Blood pressure on low side today, initially 90/72, recheck done by me 118/70 sitting and 112/72 standing, asymptomatic. Instructed on increasing fluid intake and add salt to diet if she noticing lightheadedness. Plan I discussed with the patient the importance of increasing fluid and salt intake to manage her low blood pressure and prevent syncope. We agreed on using a heart monitor to evaluate her palpitations and any potential cardiac irregularities. I advised her to continue monitoring her blood pressure, wear oxygen at home and to seek medical attention if she experiences further fainting episodes. Orders: Orders ECG 5 day holter monitor Today R00.2 - Palpitations, R94.31 - Abnormal electrocardiogram [ECG] [EKG] Patient Instructions: - Increase fluid and salt intake to manage low blood pressure. - Use the heart monitor as instructed and return it after the monitoring period. - Monitor blood pressure at home regularly. - Seek medical attention if experiencing further fainting episodes. Patient was informed and verbally consented to the use of an ambient scribe for clinic note documentation during this visit. Visit time spent on chart review, interview, assessment, orders, documentation. Coding Level of Care Code Est Pt Level 3 (40891) Complex EM visit Add On G2211 Diagnoses Prolonged QT interval R94.31 Palpitations R00.2 Low blood pressure I95.9 Time Spent (min) 24
--- OUTSIDE RECORDS SUMMARY | 2025-03-13 09:38 | XMS_ITS | Clinical Summary ---
Author Organization [facility] ity Address [address] [place] [address] Care Team Providers Care Information Technology Analyst Name Role Phone Unavailable Primary Care Provider [...]
== END 2025-03-13 09:38 | disposition home or self-care (01) ==
LOC: HO.HCS 08:56
PROVIDERS: PCP Internal Medicine; Visit Provider Nurse Practitioner Family
DX: R94.31 Abnormal electrocardiogram [ECG] [EKG] (principal); R00.2 Palpitations; I95.9 Hypotension, unspecified
CPT/HCPCS: 99213

== ENCOUNTER → 2025-03-13 08:55 | Outpatient (BNVA) | payer OTHER, SELFPAY | PROVIDERS: PCP Internal Medicine; Visit Provider Nurse Practitioner Family | DX: R00.2 Palpitations (principal); R94.31 Abnormal electrocardiogram [ECG] [EKG]; I95.9 Hypotension, unspecified | CPT/HCPCS: 99212 ==

== ENCOUNTER → 2025-05-08 10:21 | Outpatient (REF) | payer OTHER, SELFPAY ==
--- OUTSIDE RECORDS SUMMARY | 2025-05-08 11:43 | XMS_ITS | Clinical Summary ---
Author Organization [facility] ity Address [address] [place] [address] Care Team Providers Care Third Officer Name Role Phone Unavailable Primary Care Provider [...] of 2) 2024 COVID-19 Vaccine (1 - 2024-2 6 season) 2025 Influenza Vaccine (#1) 2025 RSV [...]
== END ==
LOC: HO.CARD 10:21
PROVIDERS: PCP Internal Medicine; Visit Provider Nurse Practitioner Family
DX: R00.2 Palpitations (principal); R94.31 Abnormal electrocardiogram [ECG] [EKG]
CPT/HCPCS: 93242

== ENCOUNTER → 2025-05-08 10:23 | Outpatient (BNV) | payer OTHER, SELFPAY | PROVIDERS: PCP Internal Medicine; Visit Provider Internal Medicine Cardiovascular Disease | DX: R00.2 Palpitations (principal) | CPT/HCPCS: 93244 ==